=== PATIENT | male | born 1945 | race Caucasian/White ===

== ENCOUNTER 2018-08-09 18:12 | Outpatient (REF) | payer MEDICARE, SELFPAY ==
[2018-08-09 22:28] LABS: Abs Immature Grans 0.01 k/cumm (0.0-0.09); Absolute Basophil Count 0.01 k/cumm (0.0-0.2); Absolute Eosinophil Count 0.03 k/cumm (0.0-0.7); Absolute Lymphocyte Count 0.36 k/cumm (1.2-3.4); Absolute Monocyte Count 0.59 k/cumm (0.11-0.7); Absolute Neutrophil Count 9.76 k/cumm (1.2-6.7); Basophils % 0.1; Eosinophils % 0.3; HCT 43.2 % (40.0-50.0); HGB 14.6 g/dL (13.5-17.5); Immature Grans % 0.1; Lymphocytes % 3.3; Mean Corp. HGB Concentration 33.8 g/dL (32.0-36.0); Mean Corpuscular Hemoglobin 31.1 pg (27.0-33.0); Mean Corpuscular Volume 91.9 fL (80-95); Mean Platelet Volume 10.8 fL (8.0-11.0); Monocytes % 5.5; Neutrophils % 90.7; Platelet Count 150 x1000/uL (130-400); White Blood Cell Count 10.76 k/cumm (4.4-10.8)
[2018-08-09 22:29] LABS: Bilirubin Negative (Negative); Blood Moderate (Negative); Clarity Cloudy; Glucose Negative (Negative); Ketones Negative (Negative); Leukocyte Esterase Small (Negative); Nitrite Positive (Negative); Specific Gravity 1.025 (1.005-1.025); Urobilinogen 0.2 EU/dL (Up TO 0.2); pH 5.5 (5-8)
[2018-08-09 22:36] LABS: ALT 59 U/L (12-78); AST 42 U/L (15-37); Albumin 3.6 g/dL (3.4-5.0); Alkaline Phosphatase 110 U/L (46-116); Anion Gap 13.6 mmol/L (3-11); BUN 23 mg/dL (7-18); Bilirubin, Total 1.1 mg/dL (0.2-1.0); CO2 23.4 mmol/L (21.0-32.0); CREATININE 1.73 mg/dL (0.70-1.30); Calcium 8.9 mg/dL (8.5-10.1); Chloride 102 mmol/L (98-107); Glucose 98 mg/dL (70-100); Potassium 3.4 mmol/L (3.5-5.1); Sodium 139 mmol/L (136-145); Total Protein 7.1 g/dL (6.4-8.2)
[2018-08-09 23:08] LABS: C & S Indicated? C&S Done As Ordered
[2018-08-10 09:50] LABS: WBC >50 HPF (0-5)
[2018-08-10 09:51] LABS: Bacteria Many HPF (Negative); Epithelial Cells Few HPF (Negative); Other Cells Moderate Renal (Negative)
[2018-08-10 09:52] LABS: Crystals Many Amorphous HPF (Negative); Mucus Moderate (Negative)
== END 2018-08-09 18:32 ==
LOC: NCHCN 18:12
PROVIDERS: PCP Internal Medicine; Visit Provider Internal Medicine
DX: R50.9 Fever, unspecified (principal); N39.0 Urinary tract infection, site not specified
CPT/HCPCS: 80053; 87077; 81003; 81015; 85025; 87086; 87186

== ENCOUNTER 2019-01-23 21:59 | Emergency (ER) | payer MEDICARE, SELFPAY ==
[2019-01-23 22:18] VITALS: BP 137/91; PULSE 95; RESP 18; TEMP 36.6; O2SAT 100
--- NOTE | 2019-01-23 22:26 | NUR.NOTE ---
Nursing Note:MD Nicholson at bedside.
--- NOTE | 2019-01-23 22:35 | ED.GENADUL_ITS ---
Discharge Plan Disposition Patient Disposition: HOME Condition: Good Discharge Details Chief Complaint: Abd Prob Clinical Impression: Partial small bowel obstruction Primary Care Provider: Hugh Cortes ED Provider: Quentin Nicholson Home Meds and New Rx's Prescriptions: No Action multivitamin [Daily Vitamin] 1 EACH tablet 1 ea PO DAILY RF: 0 atorvastatin [Lipitor] 20 MG tablet 20 mg PO HS RF: 0 metoprolol succinate 50 MG tablet extended release 24 hr 50 mg PO BID Qty: 60 RF: 0 nitroglycerin [Nitrostat] 0.4 MG tablet, sublingual 1 tab Sublingual PRN PRNRF: 0 apixaban [Eliquis] 5 MG tablet 1 tab PO BID RF: 0 diltiazem HCl 180 MG capsule,extended release 24 hr 180 mg PO DAILY Qty: 20 RF: 0 Discharge Instructions Instructions: Bowel Obstruction (ED) Additional Instructions: At this time you have a very mild low-grade small bowel obstruction. These often resolve on their own. It requires stomach rest, and only eating liquid food for the next 24-48 hours. After 48 hours you can begin to gradually advance her diet with Jell-O, pudding, and 24 hours after that begin to eat mild solid meals. Please drink plenty of fluids. If you have no gas or bowel movement in the next 24 hours, please return immediately for reassessment. If you notice any worsening of your symptoms, or any new symptoms such as vomiting, diarrhea, worsening abdominal pain fever, chills, shortness of breath, chest pain, numbness, weakness, or fainting , please return immediately to the emergency department for reevaluation. Please follow up with your primary care provider as soon as possible for reassessment and reevaluation. As always, it was a pleasure participating in your medical care today. Referrals: Hugh Cortes MD [Primary Care Provider] - Medical Decision Making <Quentin Nicholson MD - Last Filed: 01/23/19 23:34> 73-year-old male presents from home complaining of hours of progressive abdominal pain that he states the time of arrival seems to be improving. He states it did begin after eating 6 different kinds of baked beans at a being supper. He has not had a fever or vomiting. Feels bloated and mildly distended. On exam he is well-appearing, afebrile, minimally tender in the midepigastrium. Reviewed previous records including colonoscopy 2017 with both polyps and diverticulosis. Differential diagnosis today would include diverticulitis, ileus, obstruction, colitis. IV placed, labs obtained, fluids initiated and patient referred for CT imaging. Diagnostic laboratory notable for white blood cell count of 11.6, hematocrit 51, platelets 218, slight neutrophil predominance. Chemistries notable for BUN of 24. As it is change of shift, patient be signed out to Dr. Mendez pending review of diagnostic images. Please see his note regarding final impression disposition <Sterling Mendez DO - Last Filed: 01/24/19 00:52> Medical Records Medical records narrative: Case was signed out to be my my colleague Dr. Quentin Nicholson pending CT scan. Laboratory work-up is relatively benign, minimal elevation in white count, no fever or significant tachycardia. Blood pressure stable. CT scan shows no evidence of diverticulitis per virtual radiology but does show evidence of mildly dilated loops of small bowel concerning for a low- grade small bowel obstruction. He did go and reassessed the patient independently. He just woke up from his nap. He states that he feels much better and would like to go home. Repeat abdominal exam demonstrates normal bowel sounds, no hypertympany, no abdominal distention or significant tenderness. He continues to have no vomiting. He recently had some flatus a few hours ago, last bowel movement was earlier today. Although he shows CT scan findings concerning for low-grade SBO, clinically he appears to be more carmelita cative of a very mild to minimal ileus. He has been tolerating p.o. well. No indication for NG tube at this time. I did discuss admission to the hospital, and at this time patient would like to go home. I did discuss the risks and benefits of this including and lifelong disability however I feel this extremely unlikely. I feel that he is safe and stable for discharge at this time. Do recommend oral fluids, no solid foods, and rest at home. I discussed the concerning red flags which to return including no flatus or bowel movements in the next 24 hours, worsening abdominal pain or distention. Patient understands. I have extensively reviewed the treatment plan and discharge instructions with the patient. I have addressed all patient concerns at this time. The patient was made aware of what symptoms to monitor for that would warrant a return to the emergency department. Discussed the plan with the patient, they demonstrate verbal understanding and agreement with our assessment and plan at this time. FINDINGS: Lungs: Bibasilar subsegmental dependent atelectasis. Liver: Normal. No mass. Gallbladder and bile ducts: Normal. No calcified stones. No ductal dilation. Pancreas: Normal. No ductal dilation. Spleen: Normal. No splenomegaly. Adrenals: Normal. No mass. Kidneys and ureters: Normal. No hydronephrosis. Stomach and bowel: Colonic diverticulosis. Periampullary duodenal diverticulum. Mildly dilated loops of small bowel concerning for mild/low-grade small bowel obstruction. Appendix: A normal appendix is identified. Intraperitoneal space: Unremarkable. No free air. No significant fluid collection. Vasculature: Atherosclerotic disease of the abdominal aorta without aneurysm. Lymph nodes: Unremarkable. No enlarged lymph nodes. Bladder: Unremarkable as visualized. Reproductive: Prostate is enlarged. Bones/joints: Unremarkable. No acute fracture. Soft tissues: Unremarkable. IMPRESSION: Mildly dilated loops of small bowel concerning for mild/low-grade small bowel obstruction. Thank you for allowing us to participate in the care of your patient. Dictated and Authenticated by: Alton Lunsford MD HPI <Quentin Nicholson MD - Last Filed: 01/23/19 23:34> General Mode of arrival: ambulatory . Date/Time Provider Initiated Documentation: 01/23/19 21:59 . Limitations to Documentation: no limitations . Information obtained by: patient . History of Present Illness 73 year old M presents to the emergency department with the chief complaint of Hours of abdominal pain, bloating and distention, described as moderate, Quality is described as constant, and is localized to the abdomen. Patient reports no radiation. Patient started experiencing this hour(s) and it has been constant. No relieving factors improve symptom(s), No exacerbating factors reported . Patient notes other (Bloating, belching, no significant change to stool. No bloody or dark stool.). Patient did receive the following treatments prior to arrival, none Related Data Home Medications Medication Instructions Recorded Confirmed atorvastatin [Lipitor] 20 mg PO HS 10/28/14 12/19/16 metoprolol succinate 50 mg PO BID #60 tabcr 10/31/14 12/19/16 multivitamin [Daily Vitamin] 1 ea PO DAILY 11/03/14 12/19/16 apixaban [Eliquis] 1 tab PO BID 09/07/15 12/19/16 nitroglycerin [Nitrostat] 1 tab SUBLINGUAL PRN PRN 09/07/15 12/19/16 diltiazem HCl 180 mg PO DAILY #20 capsule.er 12/19/16 Previous Rx's Medication Instructions Recorded metoprolol succinate 50 mg PO BID #60 tabcr 10/31/14 diltiazem HCl 180 mg PO DAILY #20 capsule.er 12/19/16 Allergies Allergy/AdvReac Type Severity Reaction Status Date / Time No Known Allergies Allergy Unverified 05/16/16 11:42 General Stated Complaint: Abd Prob NURIA: 3 Review of Systems <Quentin Nicholson MD - Last Filed: 01/23/19 23:34> Review of Systems Narrative: No fever or chills. No change to urine. No vomiting. 6 systems reviewed and otherwise negative. PFSH <Quentin Nicholson MD - Last Filed: 01/23/19 23:34> Surgical History Colonoscopy - IV Sedation (05/16/16) Coronary Stent Social History Smoking/Tobacco Use Status: Former Tobacco Use Drug use: Never Substance use type: does not use Do you feel safe in your relationship?: Yes Exam <Quentin Nicholson MD - Last Filed: 01/23/19 23:34> Narrative Exam Narrative: GEN: awake, alert, oriented 3. Pleasant, well groomed, interactive. HEAD: Normocephalic, atraumatic ENT: Mucous membranes moist, oropharynx unremarkable, External ear exam unremarkable EYES: PERRL, EOMI NECK: Full ROM, no RAFAEL, no menigismus CHEST/RESP: Nontender, clear to auscultation bilateral, no wheeze/rhonchi/rales CARDIOVASCULAR: RRR, no murmur, rub pooja. 2+ Rad pulse bilateral ABDOMEN: Soft, mid abdominal tenderness to deep palpation without significant rebound, no mass. +Bowel sounds EXT: Full ROM, no edema, no rash Neuro: Grossly normal neurologic exam, conversant, interactive. Psych: Speech fluent, thoughts congruent, affect normal Course <Quetnin Nicholson MD - Last Filed: 01/23/19 23:34> Vital Signs Vital signs: Vital Signs Temperature 36.6 C 01/23/19 22:18 Pulse 95 H 01/23/19 22:18 Respiratory Rate 18 01/23/19 22:18 Blood Pressure 137/91 H 01/23/19 22:18 Pulse Oximetry 100 01/23/19 22:18 Temperature 36.6 C 01/23/19 22:18 Temperature Source Oral 01/23/19 22:18 Pulse 95 H 01/23/19 22:18 Respiratory Rate 18 01/23/19 22:18 Respiratory Effort Non-Labored 01/23/19 22:22 Blood Pressure 137/91 H 01/23/19 22:18 Pulse Oximetry 100 01/23/19 22:18 Oxygen Delivery Method Room Air 01/23/19 22:18 Oxygen Flow Rate 0 01/23/19 22:18 Pain Level 7 01/23/19 22:18
[2019-01-23 23:13] LABS: Abs Immature Grans 0.02 k/cumm (0.0-0.09); Absolute Basophil Count 0.03 k/cumm (0.0-0.2); Absolute Lymphocyte Count 0.57 k/cumm (1.2-3.4); Basophils % 0.3; Eosinophils % 0.3; Immature Grans % 0.2; Lymphocytes % 4.9; Mean Corp. HGB Concentration 33.3 g/dL (32.0-36.0); Mean Corpuscular Volume 93.1 fL (80-95); Mean Platelet Volume 9.6 fL (8.0-11.0); Monocytes % 4.7; Neutrophils % 89.6; Platelet Count 218 x1000/uL (130-400); RBC 5.48 m/cumm (4.50-6.00); RBC Distribution Width 13.3 % (11.8-14.1)
[2019-01-23 23:15] LABS: Absolute Eosinophil Count 0.03 k/cumm (0.0-0.7); Absolute Monocyte Count 0.55 k/cumm (0.11-0.7); Absolute Neutrophil Count 10.39 k/cumm (1.2-6.7)
[2019-01-23 23:21] LABS: Lipase 124 U/L (73-393)
[2019-01-23 23:22] LABS: Prothrombin Time 9.9 sec (9.3-11.0)
[2019-01-23 23:24] LABS: ALT 31 U/L (16-63); AST 20 U/L (15-37); Albumin 4.3 g/dL (3.4-5.0); Alkaline Phosphatase 109 U/L (46-116); Anion Gap 8.1 mmol/L (3-11); BUN 24 mg/dL (7-18); Bilirubin, Total 0.6 mg/dL (0.2-1.0); CO2 29.9 mmol/L (21.0-32.0); CREATININE 1.25 mg/dL (0.70-1.30); Calcium 9.5 mg/dL (8.5-10.1); Chloride 106 mmol/L (98-107); Estimated GFR 56.31 (mL/min/1.73m2); Glucose 135 mg/dL (70-100); Potassium 4.5 mmol/L (3.5-5.1); Sodium 144 mmol/L (136-145); Total Protein 8.2 g/dL (6.4-8.2)
[2019-01-23] MEDS: Omnipaque 350 MG/ML 50 ML BTL PO (23:29)
[2019-01-23] MEDS: Omnipaque 350 MG/ML 100 ML BTL IJ (23:54)
[2019-01-23] MEDS: Breeza Beverage 473 ML BTL PO (23:55)
--- NOTE | 2019-01-23 23:55 | DI.CT_ITS ---
SYMPTOM/DIAGNOSIS: DC ABD PAIN, H/O TICS ABDOMEN AND PELVIC CT: The study was carried out according to the usual protocol with an intravenous administration of 100 cc's of Omnipaque 350. Small regions of subsegmental atelectasis are noted involving the lung bases. The liver is normal. The gallbladder is normal. There are no stones or ductal dilatation. The pancreas is normal. The spleen and adrenals are normal. No renal abnormality is seen. Colonic diverticulosis is demonstrated and there is a coco-ampullary duodenal diverticulum. There are mildly dilated loops of small bowel concerning for a mid to low small bowel obstruction. A normal appearing appendix is identified. There is no evidence of free air or free fluid in the intraperitoneal space. Atherosclerotic changes involving the abdominal aorta are demonstrated without evidence of an aneurysm. There is no evidence of lymphadenopathy. The bladder is unremarkable. Prostatic enlargement is demonstrated. No acute bony abnormality is seen. The soft tissues are unremarkable. IMPRESSION: Mildly dilated loops of small bowel are concerning for a possible mid to low small bowel obstruction.
--- NOTE | 2019-01-24 00:04 | NUR.NOTE ---
Nursing Note: report given to Linus Myers RN
[2019-01-24] MEDS: Normal Saline 1,000 ML 125 ML IV (00:22)
--- NOTE | 2019-01-24 00:36 | DI.VRAD_ITS ---
EXAM: CT Abdomen and Pelvis With Contrast EXAM DATE/TIME: 01/23/2019 10:35 PM CLINICAL HISTORY: 73 years old, male; Localized; Prior surgery; Surgery date: 1-6 months; Surgery type: Turp procedure in August; Patient HX: Mid abdominal pain TECHNIQUE: Imaging protocol: Computed tomography of the abdomen and pelvis with intravenous contrast. Radiation optimization: All CT scans at this facility use at least one of these dose optimization techniques: automated exposure control; mA and/or kV adjustment per patient size (includes targeted exams where dose is matched to clinical indication); or iterative reconstruction. Contrast material: OMNIPAQUE 350; Contrast volume: 100 ml; Contrast route: IV; COMPARISON: No relevant prior studies available. FINDINGS: Lungs: Bibasilar subsegmental dependent atelectasis. Liver: Normal. No mass. Gallbladder and bile ducts: Normal. No calcified stones. No ductal dilation. Pancreas: Normal. No ductal dilation. Spleen: Normal. No splenomegaly. Adrenals: Normal. No mass. Kidneys and ureters: Normal. No hydronephrosis. Stomach and bowel: Colonic diverticulosis. Periampullary duodenal diverticulum. Mildly dilated loops of small bowel concerning for mild/low-grade small bowel obstruction. Appendix: A normal appendix is identified. Intraperitoneal space: Unremarkable. No free air. No significant fluid collection. Vasculature: Atherosclerotic disease of the abdominal aorta without aneurysm. Lymph nodes: Unremarkable. No enlarged lymph nodes. Bladder: Unremarkable as visualized. Reproductive: Prostate is enlarged. Bones/joints: Unremarkable. No acute fracture. Soft tissues: Unremarkable. IMPRESSION: Mildly dilated loops of small bowel concerning for mild/low-grade small bowel obstruction. Dictated and Authenticated by: Alton Lunsford MD. Ordering:MOISES Saavedra MD
[2019-01-24 01:11] VITALS: BP 130/78; PULSE 84; RESP 18; O2SAT 100
== END 2019-01-24 01:05 | disposition home or self-care (01) ==
PROVIDERS: Emergency Provider Emergency Medicine; PCP Internal Medicine
DX: K56.600 Partial intestinal obstruction, unspecified as to cause (principal); R14.0 Abdominal distension (gaseous)
CPT/HCPCS: 36415; 80053; 83690; 96360; 99285; 74177; 85025; 85610; 99284; J3490; Q9967

== ENCOUNTER 2019-12-26 14:35 | Outpatient (REF) | payer MEDICARE, SELFPAY ==
[2019-12-26 21:18] LABS: Anion Gap 9.6 mmol/L (3-11); BUN 27 mg/dL (7-18); CO2 28.4 mmol/L (21.0-32.0); CREATININE 1.28 mg/dL (0.70-1.30); Calcium 9.4 mg/dL (8.5-10.1); Calculated LDL 73 mg/dL (<100); Chloride 105 mmol/L (98-107); Cholesterol 164 mg/dL (<200); Estimated GFR 54.64 (mL/min/1.73m2); Glucose 86 mg/dL (74-106); HDL Cholesterol 43 mg/dL (40-60); Potassium 4.4 mmol/L (3.5-5.1); Sodium 143 mmol/L (136-145); Triglyceride 243 mg/dL (<150)
[2019-12-29 22:21] LABS: SARS-CoV-2 RNA Undetected (Undetected)
== END 2019-12-26 14:55 ==
LOC: NCHCN 14:35
PROVIDERS: PCP Internal Medicine; Visit Provider Internal Medicine
DX: E78.5 Hyperlipidemia, unspecified (principal); I48.0 Paroxysmal atrial fibrillation; I25.10 Atherosclerotic heart disease of native coronary artery without angina pectoris; Z20.828 Contact with and (suspected) exposure to other viral communicable diseases
CPT/HCPCS: 80048; 80061; U0003

== ENCOUNTER 2020-04-20 06:13 | Day surgery (SDC) | payer MEDICARE, SELFPAY ==
[2020-04-20] MEDS: Tropicam./Phenyleph. (1/2.5%) 5 ML BTL OD ×3 (06:25→06:38)
[2020-04-20 06:28] VITALS: BP 129/79; PULSE 74; RESP 16; TEMP 36.3; O2SAT 94
[2020-04-20] MEDS: Tetracaine 0.5% 4 ML BTL OD (07:51)
[2020-04-20] MEDS: Balanced Salt Soln.-PLUS 500 ML BAG (07:54)
[2020-04-20] MEDS: Lidocaine 2% Jelly 6 ML SYR (07:57)
[2020-04-20] MEDS: Lidocaine 1% Pres-Free 5 ML VIAL (07:57)
[2020-04-20] MEDS: Moxifloxacin-PF 1 MG/ML VIAL (08:00)
[2020-04-20] MEDS: Povidone-Iodine Ophth 30 ML BTL (08:04)
--- NOTE | 2020-04-20 08:08 | W.PM.DSUDISC ---
Discharge Plan Disposition Patient Disposition: HOME Condition: Good Discharge Details Attending Provider: Marcos Leon Primary Care Provider: Hugh Cortes Home Meds and New Rx's Prescriptions: No Action multivitamin [Daily Vitamin] 1 EACH tablet 1 ea PO DAILY RF: 0 atorvastatin [Lipitor] 20 MG tablet 20 mg PO HS RF: 0 nitroglycerin [Nitrostat] 0.4 MG tablet, sublingual 1 tab Sublingual PRN PRNRF: 0 Eliquis 5 MG tablet 1 tab PO BID RF: 0 diltiazem HCl 180 MG capsule,extended release 24 hr 180 mg PO DAILY Qty: 20 RF: 0 metoprolol succinate 50 MG tablet extended release 24 hr 50 mg PO DAILY RF: 0 Discharge Instructions Stand Alone Forms: Post-op Topical Cataract, Anant Anderson (DSU) Discharge Orders Discharge Orders: Discharge Order (Routine); Ordered 04/20/20 Ordered By: Marcos Leon DS: Diagnosis Discharge Diagnosis (1) Posterior subcapsular age-related cataract, right eye: Status: Resolved (2) Nuclear sclerotic cataract of right eye: Status: Resolved (3) Cortical cataract of right eye: Status: Resolved
--- NOTE | 2020-04-20 08:09 | ROE_ITS ---
Date of service: 04/20/20 Time of Service: 08:09 Operative Note Operative Note DATE OF PROCEDURE: 04/20/20 PRE-OP DIAGNOSIS: Nuclear/cortical/posterior subcapsular cataract, right eye POST-OP DIAGNOSIS: same PROCEDURE: Cataract extraction using phacoemulsification with intraocular lens implant, right eye SURGEON: Marcos Leon ANESTHESIA: MAC and local (sub-tenon's anesthetic infiltration) ESTIMATED BLOOD LOSS: 0 PATHOLOGY: none sent COMPLICATIONS: None Patient was transported to: same day Patient's condition: stable Implants: [employer] / [employer] Tecnis ZCB00 intraocular lens Indications: Progressive decreased vision due to cataract, right eye Procedure Description: CATARACT SURGERY OPERATIVE REPORT PREOPERATIVE DIAGNOSIS: Nuclear/cortical/posterior cataract, right eye POSTOPERATIVE DIAGNOSIS: Same OPERATION: Cataract extraction using phacoemulsification with posterior chamber intraocular lens implant, right eye. IOL: IOL On Site Manager/Model: [employer] Vision / KARI Tecnis ZCB00 IOL Power: + 11.0 diopters IOL Serial Number: [id number] Optic Diameter: 6.0mm Haptic/Overall Diameter: 13.0mm PHACO INFO: Liang Plex Systemsurion Vision System with OZil and Active [employer]uidics Cumulative Dispersed Energy (CDE): 8.35 seconds SURGEON: Marcos Leon MD, ANTHONY ANESTHESIA: Monitored Anesthesia Care (MAC), with local sub-tenon's anesthetic infiltration COMPLICATIONS: None SPECIMENS: None INDICATIONS FOR PROCEDURE: The patient is a 74-year-old gentleman with history of high myopia who has since undergone cataract surgery in his left eye in 2016. He has developed now developed a significant nuclear/cortical/posterior subcapsular cataract in the right eye. The option of cataract surgery was offered to the patient and he felt he was symptomatic at that he wished to proceed. PROCEDURE: The correct surgical eye was identified and marked as the right eye and the pupil was dilated in the preoperative area using mydriatics and cycloplegics. The dilated pupil size was 8.0 mm. Oral sedation was administered in the form of an Imprimis MKO Melt (midazolam 3mg/ketamine 25mg/ondansetron 2mg). The patient was brought to the operating room where cardiopulmonary monitoring was instituted and surgical time-out was performed, confirming the correct operative eye and IOL power. Topical anesthesia was administered and ophthalmic povidone-iodine 5% was instilled into the conjunctival fornices. Lidocaine gel was applied to the cornea and the coco-ocular area was prepped with Betadine 10% solution and draped in the usual sterile fashion for intraocular surgery, including an aperture drape. A Tegaderm transparent film dressing was cut in half and used to cover the lashes and lid margins. Care was taken to sequester the lashes and lid margins under the Tegaderm dressing. A lid speculum was placed between the lids of the operative eye and the Lisset-Fortino operating microscope was maneuvered into position. Allen scissors were then used to make a conjunctival buttonhole approximately 6mm posterior to the limbus in the inferonasal quadrant. Blunt dissection was carried out to expose bare sclera, and a blunt-tipped sub-tenon?s anesthesia cannula was introduced and passed posteriorly along the globe where non- preserved plain lidocaine was injected into posterior sub-Tenon?s space. A sideport knife was used to make a paracentesis port inferiortemporally. Intraocular phenylephrine/lidocaine was injected into the anterior chamber. The anterior chamber was then filled with viscoelastic. A 2.4mm keratome knife was used to create a half-thickness groove at the limbus and then to construct a three-plane near-clear corneal tunnel extending 2.0mm into clear cornea in the superiortemporal position. . A flap was raised on the anterior capsule and capsulorhexis forceps were used to complete a continuous curvilinear capsulorhexis of 6.0 mm. Capsule was noted to be very thin with a very deep anterior chamber. Balanced salt solution was then used to perform cortical cleaving hydrodissection and nuclear hydrodelineation until the lens could be freely rotated within the capsular bag. The lens nucleus was then disassembled and removed within the capsular bag and iris plane using phacoemulsification. Residual cortical material was removed using the I/A handpiece. The posterior capsule was carefully polished to remove as much residual lens epithelial cells as safely possible. The capsular bag was then inflated and the anterior chamber deepened with viscoelastic. The lens implant described above was inserted into the capsular bag using the KARI [place] Injector. A Kuglen hook was used to dial the IOL into position. Residual viscoelastic was then removed first from posterior to the IOL, then from the anterior chamber using the I/A handpiece. The lens implant was noted to center nicely within the capsular bag. The incisions were stromally hydrated, and the anterior chamber was reformed using BSS. Then 0.5cc of moxifloxacin 1.0mg/ml were injected into the capsular bag and anterior chamber. The incisions were checked with a Weck spear and found to be secure. Several drops of ophthalmic povidone-iodine 5% were then applied to the eye followed by two d rops of Imprimis combination prednisolone/moxifloxacin/nepafenac solution. The drapes were removed and a clear plastic protective eye shield was placed over the eye. The patient was then returned to [facility] in stable condition.
[2020-04-20 08:40] VITALS: BP 109/56; PULSE 61; RESP 16; TEMP 36.8; O2SAT 97
== END 2020-04-20 08:42 | disposition home or self-care (01) ==
PROVIDERS: PCP Internal Medicine; Visit Provider Ophthalmology
PROC: (CPT 66984; principal; 2020-04-20 07:30)
DX: H25.041 Posterior subcapsular polar age-related cataract, right eye (principal); H25.11 Age-related nuclear cataract, right eye; H25.011 Cortical age-related cataract, right eye; H52.11 Myopia, right eye
CPT/HCPCS: 66984; V2632

== ENCOUNTER 2020-05-06 18:11 | Emergency (ER) | payer MEDICARE, SELFPAY ==
--- NOTE | 2020-05-06 18:00 | RT.EKG_ITS ---
APPROVED REPORT Exam: Resting ECG Patient Location: E HR:108 bpm ECG Measurements Heart Rate 108 AXIS MD 192 P 2 QRSd 110 QRS 10 QT 321 T -65 QTc 430 Conclusion Sinus tachycardia...rate 108 Inferior q waves
[2020-05-06 18:16] VITALS: BP 160/91; PULSE 108; RESP 24; TEMP 36.2; O2SAT 93
[2020-05-06 18:18] VITALS: BP 160/91; PULSE 106; PULSE 110; RESP 14; O2SAT 94
[2020-05-06 18:30] VITALS: BP 160/91; PULSE 110
[2020-05-06 18:30] LABS: Abs Immature Grans 0.02 10^3/uL (0.0-0.06); Absolute Basophil Count 0.05 10^3/uL (0.0-0.2); Absolute Eosinophil Count 0.12 10^3/uL (0.0-0.7); Absolute Lymphocyte Count 1.66 10^3/uL (1.2-3.4); Absolute Neutrophil Count 4.59 10^3/uL (1.2-6.7); Basophils % 0.7; Eosinophils % 1.7; HCT 50.7 % (40.0-50.0); HGB 16.6 g/dL (13.5-17.5); Immature Grans % 0.3; Lymphocytes % 23.9; MCH 31.1 pg (27.0-33.0); MCHC 32.7 % (32.0-36.0); MCV 94.9 fL (80-95); MPV 9.3 fL (8.0-11.0); Monocytes % 7.2; Neutrophils % 66.2; Nucleated RBC 0 %; Platelet Count 227 10^3/uL (130-400); RBC 5.34 10^6/uL (4.36-5.78); RDW 12.3 % (11.8-14.1); RDW-SD 43.2 fL; WBC 6.94 10^3/uL (4.4-10.8)
[2020-05-06] MEDS: Normal Saline 1,000 ML 1000 ML IV (18:30)
[2020-05-06] MEDS: Metoprolol 5 MG/5 ML VIAL IVP (18:30)
--- NOTE | 2020-05-06 18:33 | ED.GENADUL_ITS ---
Discharge Plan Disposition Patient Disposition: HOME Condition: Improving Discharge Details Clinical Impression: Dehydration Primary Care Provider: Hugh Cortes ED Provider: Quentin Nicholson Home Meds and New Rx's Prescriptions: Continued multivitamin [Daily Vitamin] 1 EACH tablet 1 ea PO DAILY RF: 0 atorvastatin [Lipitor] 20 MG tablet 20 mg PO HS RF: 0 nitroglycerin [Nitrostat] 0.4 MG tablet, sublingual 1 tab Sublingual PRN PRNRF: 0 Eliquis 5 MG tablet 1 tab PO BID RF: 0 diltiazem HCl 180 MG capsule,extended release 24 hr 180 mg PO DAILY Qty: 20 RF: 0 metoprolol succinate 50 MG tablet extended release 24 hr 50 mg PO DAILY RF: 0 Discharge Instructions Instructions: Dehydration (ED) Additional Instructions: Home to rest this evening. Resume normal routine and activities tomorrow. Continue regular medications. Small, frequent sips of fluids so that she maintain good hydration. Return to the ER for any acute concerns. Discharge Data Discharge Date/Time-TO BE ENTERED AT DEPARTURE: 05/06/20 19:35 Medical Decision Making 74-year-old male presents from home complaining of mild palpitations today. He states he slept poorly last night, absentmindedly forgot to take his morning medications and then took them at approximately 3:00. He felt the palpitations this afternoon and checked him on home pulse oximeter which noted heart rates in the 140s. No chest pain, no shortness of breath, no weakness or syncope. Patient drove himself to the ER. He arrives with a blood pressure 160/90, pulse 108, afebrile and oxygenating normally on room air. He has a history of paroxysmal atrial fibrillation for which he takes metoprolol, diltiazem, Eliquis. He also has a history of single-vessel coronary artery disease status post percutaneous stenting. Patient placed on director of cardiac rehabilitation, IV access established, fluids initiated. Given 5 mg of metoprolol IV, 1 L normal saline and referred for laboratory testing, EKG and chest x-ray. He is in a normal sinus rhythm. Chest x-ray: No acute pulmonary process Labs reveal probable mild dehydration with a hematocrit of 50, BUN 21, creatinine 1.3. Troponin is negative. TSH within normal limits. Patient improved. Consistent with lack of AV lisa blockade and dehydration. I discussed this with him. He is stable and improved, appropriate for discharge to home. Lab Data Lab results reviewed: Yes I reviewed the patient's lab results. Labs: Laboratory Results - last 24 hr 05/06/20 05/06/20 18:20 18:20 WBC 6.94 RBC 5.34 Hgb 16.6 Hct 50.7 H MCV 94.9 MCH 31.1 MCHC 32.7 RDW 12.3 Plt Count 227 MPV 9.3 Immature Gran % 0.3 Neutrophils % 66.2 Lymphocytes % 23.9 Monocytes % 7.2 Eosinophils % 1.7 Basophils % 0.7 Nucleated RBC % 0 Absolute Neutrophils 4.59 Absolute Lymphocytes 1.66 Absolute Monocytes 0.50 Absolute Eosinophils 0.12 Absolute Basophils 0.05 Sodium 140 Potassium 4.0 Chloride 103 Carbon Dioxide 27.2 Anion Gap 9.8 BUN 21 H Creatinine 1.35 H Estimated GFR/1.73 m2 51.38 Glucose 145 H Calcium 8.9 Magnesium 2.1 Total Bilirubin 0.4 AST 22 ALT 39 Alkaline Phosphatase 117 H Troponin I < 0.05 Total Protein 7.8 Albumin 4.0 TSH 1.74 HPI General Mode of arrival: ambulatory . Date/Time Provider Initiated Documentation: 05/06/20 18:12 . Limitations to Documentation: no limitations . Information obtained by: patient . History of Present Illness 74 year old M presents to the emergency department with the chief complaint of Palpitations today, described as moderate, Quality is described as dull, and is localized to the chest. Patient reports no radiation. Patient started experiencing this hour(s) and it has been constant. No relieving factors improve symptom(s), No exacerbating factors reported . Patient notes other ([place] very tired today); denies chest pain, fever/chills, headaches, loss of appetite, nausea/vomiting, shortness of breath, syncope and weakness. Patient did receive the following treatments prior to arrival, none Related Data Home Medications Medication Instructions Recorded Confirmed atorvastatin [Lipitor] 20 mg PO HS 10/28/14 05/06/20 multivitamin [Daily Vitamin] 1 ea PO DAILY 11/03/14 05/06/20 Eliquis 1 tab PO BID 09/07/15 04/20/20 nitroglycerin [Nitrostat] 1 tab SUBLINGUAL PRN PRN 09/07/15 05/06/20 diltiazem HCl 180 mg PO DAILY #20 capsule.er 12/19/16 05/06/20 metoprolol succinate 50 mg PO DAILY 04/17/20 05/06/20 Previous Rx's Medication Instructions Recorded diltiazem HCl 180 mg PO DAILY #20 capsule.er 12/19/16 Allergies Allergy/AdvReac Type Severity Reaction Status Date / Time No Known Allergies Allergy Unverified 05/06/20 18:22 General Stated Complaint: Palpitatns NURIA: 2 Review of Systems Narrative: Poor sleep last night, forgot to take morning medications. No chest pain, no shortness of breath, no syncope. 8 systems reviewed and otherwise negative [facility] Medical History CAD (coronary artery disease) Hx of adenomatous colonic polyps Hx of sciatica Hx of small bowel obstruction Hx of urinary tract obstruction Hyperlipemia Paroxysmal atrial fibrillation F/U pcp Dr. Sebastian george, pt. states he has been on medications with no issues. Surgical History (Updated 04/20/20 @ 08:08 by Marcos Leon MD) Colonoscopy - IV Sedation (05/16/16) Coronary Stent 1x 03/14/2000 Hx of transurethral prostatectomy Social History Smoking/Tobacco Use Status: Former Tobacco Use Quit Date: 03/14/00 Smoking risk assessment performed?: Yes Alcohol Intake: current Alcohol Intake frequency: a few times a month Alcohol type: beer and wine Drug use: Never Substance use type: does not use Do you feel safe at home: Yes Do you feel safe in your relationship?: Yes Exam Narrative Exam Narrative: GEN: awake, alert, oriented 3. Pleasant, well groomed, interactive. HEAD: Normocephalic, atraumatic EYES: PERRL, EOMI NECK: Full ROM, no RAFAEL, no menigismus CHEST/RESP: Nontender, clear to auscultation bilateral, no wheeze/rhonchi/rales CARDIOVASCULAR: RRR, nontachycardic at the time of my exam, no murmur, rub pooja. 2+ Rad pulse bilateral ABDOMEN: Soft, nontender, no mass. +Bowel sounds EXT: Full ROM, no edema, no rash Neuro: Grossly normal neurologic exam, conversant, interactive. Psych: Speech fluent, thoughts congruent, affect normal Course Vital Signs Vital signs: Vital Signs Temperature 36.2 C L 05/06/20 18:16 Pulse 108 H 05/06/20 18:16 Respiratory Rate 24 05/06/20 18:16 Blood Pressure 160/91 H 05/06/20 18:16 Pulse Oximetry 93 05/06/20 18:16 Temperature 36.2 C L 05/06/20 18:16 Temperature Source Skin 05/06/20 18:16 Pulse 108 H 05/06/20 18:16 Respiratory Rate 24 05/06/20 18:16 Respiratory Effort Non-Labored 05/06/20 18:16 Blood Pressure 160/91 H 05/06/20 18:16 Blood Pressure Position Supine 05/06/20 18:16 Pulse Oximetry 93 05/06/20 18:16 Pain Level 0 05/06/20 18:16 Lab/Test Results Lab/Test Results: Laboratory Tests Range/Units 05/06/20 18:20 WBC (4.4-10.8) 10^3/uL 6.94 RBC (4.36-5.78) 10^6/uL 5.34 Hgb (13.5-17.5) g/dL 16.6 Hct (40.0-50.0) % 50.7 H MCV (80-95) fL 94.9 MCH (27.0-33.0) pg 31.1 MCHC (32.0-36.0) % 32.7 RDW (11.8-14.1) % 12.3 Plt Count (130-400) 10^3/uL 227 MPV (8.0-11.0) fL 9.3 Immature Gran % 0.3 Neutrophils % 66.2 Lymphocytes % 23.9 Monocytes % 7.2 Eosinophils % 1.7 Basophils % 0.7 Nucleated RBC % % 0 Absolute Neutrophils (1.2-6.7) 10^3/uL 4.59 Absolute Lymphocytes (1.2-3.4) 10^3/uL 1.66 Absolute Monocytes (0.1-0.8) 10^3/uL 0.50 Absolute Eosinophils (0.0-0.7) 10^3/uL 0.12 Absolute Basophils (0.0-0.2) 10^3/uL 0.05
[2020-05-06 18:34] VITALS: BP 144/88; PULSE 82; RESP 18; O2SAT 93
[2020-05-06] MEDS: Normal Saline Flush 10 ML SYR IVP (18:37)
[2020-05-06 18:45] VITALS: BP 140/85; PULSE 78; PULSE 79; RESP 18; O2SAT 92
[2020-05-06 18:50] LABS: ALT 39 U/L (16-63); AST 22 U/L (15-37); Alkaline Phosphatase 117 U/L (46-116); Anion Gap 9.8 mmol/L (3-11); BUN 21 mg/dL (7-18); Bilirubin, Total 0.4 mg/dL (0.2-1.0); CO2 27.2 mmol/L (21.0-32.0); CREATININE 1.35 mg/dL (0.70-1.30); Calcium 8.9 mg/dL (8.5-10.1); Chloride 103 mmol/L (98-107); Estimated GFR 51.38 (mL/min/1.73m2); Glucose 145 mg/dL (74-106); Magnesium 2.1 mg/dL (1.8-2.4); Sodium 140 mmol/L (136-145); TSH 1.74 uIU/mL (0.36-3.74); Total Protein 7.8 g/dL (6.4-8.2)
[2020-05-06 18:51] LABS: Troponin I < 0.05 ng/mL (<0.06)
--- NOTE | 2020-05-06 19:10 | DI.RAD_ITS ---
EXAM: XR CHEST 2V PA LATERAL CLINICAL HISTORY: palpitations. TECHNIQUE: 2D digital imaging was performed. COMPARISON: CR CHEST 2 VIEWS PA,LAT from 10/29/2014 CR CHEST 2 VIEWS PA,LAT from 07/22/2017 also chest x-ray 07/22/2017 FINDINGS: Heart size is upper normal. The mediastinum is not widened. There is platelike atelectasis there is scarring in the right lung base which has slightly increased from previous studies. There is platelike atelectasis in the left lung base which was not present in 2014 and is slightly increased from July 2017. There are no pleural effusions.. No pulmonary jun a. No pneumothorax. IMPRESSION: Increasing bibasilar findings as described above. No pleural effusions. No pulmonary edema. Recomm end repeat chest x-ray in 2 weeks. DATA REPOSITORY: RADIATION DOSE DELIVERED:
--- NOTE | 2020-05-06 19:20 | DI.VRAD_ITS ---
PROCEDURE INFORMATION: Exam: XR Chest, 2 Views Exam date and time: 05/06/2020 7:09 PM Age: 74 years old Clinical indication: Other: Palpitations TECHNIQUE: Imaging protocol: XR of the chest Views: 2 views. COMPARISON: CR CHEST 2 VIEWS PA,LAT 07/22/2017 8:53 AM FINDINGS: Lungs: There are linear opacities bilateral lower lungs might reflect atelectasis. Pleural space: Unremarkable. No pleural effusion. No pneumothorax. Heart/Mediastinum: Unremarkable. No cardiomegaly. Bones/joints: There are mild degenerative changes in the thoracic spine. Is no acute fracture. IMPRESSION: No acute pulmonary process. Dictated and Authenticated by: Pastor Cancino MD. Ordering:MOISES Saavedra MD
[2020-05-06 19:34] VITALS: BP 140/85; PULSE 78; RESP 18; O2SAT 92
== END 2020-05-06 19:35 | disposition home or self-care (01) ==
PROVIDERS: Emergency Provider Emergency Medicine; PCP Internal Medicine
DX: E86.0 Dehydration (principal); I48.0 Paroxysmal atrial fibrillation; Z79.01 Long term (current) use of anticoagulants; I25.10 Atherosclerotic heart disease of native coronary artery without angina pectoris; Z95.5 Presence of coronary angioplasty implant and graft
CPT/HCPCS: 36415; 80053; 93005; 96361; 96374; 99285; 71046; 83735; 84443; 84484; 85025; 93010; 99284; J3490

== ENCOUNTER → 2020-12-14 08:22 | Outpatient (BNVA) | payer MEDICARE, SELFPAY | PROVIDERS: PCP Internal Medicine; Referring Provider Internal Medicine; Visit Provider Physical Therapy Assistant | DX: Z12.11 Encounter for screening for malignant neoplasm of colon (principal); Z86.010 Personal history of colon polyps ==

== ENCOUNTER 2020-12-31 07:03 | Day surgery (SDC) | payer MEDICARE, SELFPAY ==
--- NOTE | 2020-12-28 14:10 | W.ANESPRE ---
General Info Date of Service Date Performed: 12/31/20 Height: 6 ft 4 in Weight: 107.048 kg Body Mass Index (BMI): 28.7 Surgical Procedure: Operation Date: 12/31/20 08:20 Proposed Procedures Side Surgeon p Colonoscopy Doris Mathew MD Meds Allergies and Home Medications Allergies Allergy/AdvReac Type Severity Reaction Status Date / Time No Known Allergies Allergy Unverified 12/31/20 07:21 Home Medication Medication Instructions Recorded atorvastatin [Lipitor] 20 mg PO HS 10/28/14 multivitamin [Daily Vitamin] 1 ea PO DAILY 11/03/14 Eliquis 1 tab PO BID 09/07/15 nitroglycerin [Nitrostat] 1 tab SUBLINGUAL PRN PRN 09/07/15 diltiazem HCl 180 mg PO DAILY #20 capsule.er 12/19/16 metoprolol succinate 50 mg PO DAILY 04/17/20 bisacodyl 5 mg tablet,delayed 5 mg PO ONCE #4 tab 12/14/20 release polyethylene glycol 3350 17 238 g PO ONCE #238 g 12/14/20 gram/dose oral powder PFSH Active Problems Active Problems: Problem Status Onset Code Screening for colon cancer Z12.11 Chronic kidney disease N18.9 Posterior subcapsular age-related cataract, right eye H25.041 Nuclear sclerotic cataract of right eye H25.11 Cortical cataract of right eye H26.9 CAD (coronary artery disease) I25.10 Hyperlipidemia E78.5 Atrial fibrillation 10/28/14 I48.91 Cough 10/28/14 R05 Medical History Medical History (Updated 12/31/20 @ 07:24 by Peri Gonzalez) CAD (coronary artery disease) Hx of adenomatous colonic polyps Hx of sciatica pt. doesnt remember this Hx of small bowel obstruction Hx of urinary tract obstruction Hyperlipemia Paroxysmal atrial fibrillation F/U pcp Dr. Cortes regularly, pt. states he has been on medications with no issues. Surgical History Surgical History Colonoscopy - IV Sedation (05/16/16) Coronary Stent 1x 03/14/2000 Hx of transurethral prostatectomy Tobacco Smoking/Tobacco Use Status: Former Tobacco Use Alcohol Alcohol Intake: current Alcohol intake frequency: a few times a month Alcohol type: beer and wine Substance Use Substance use: Never Substance use type: does not use Vital Signs and Lab Results Lab Results Blood Type / Crossmatch: No Data to Display Complete Blood Count: No Data to Display Complete Metabolic Panel: No Data to Display Liver Function Panel: No Data to Display Coagulation Panel: No Data to Display Cardiac Panel: No Data to Display Arterial Blood Gas: No Data to Display Venous Blood Gas: No Data to Display Pancreas Panel: No Data to Display Thyroid Panel: No Data to Display Infectious Disease: No Data to Display Blood Cultures: No Data to Display Toxicology Panel: No Data to Display Imaging and Studies Imaging and Studies EKG Summary: 05/06/20inus tachycardia...rate 108 Inferior q waves I have reviewed and I agree with the emergency room physician???s ECG interpretation. Stress Test Summary: 11/08/14 Impressions: - No chest pain with exercise. - Functional capacity was decreased. - Blood pressure response was hypertensive with stress. - No significant arrhythmias - Abnormal study after maximal exercise. Summary: 1. Myocardial perfusion imaging: There is a small sized, moderately intense, fixed defect involving the apical inferior and mid inferior wall(s). This suggests small myocardial infarction in the distribution of the right coronary artery. 2. The calculated left ventricular ejection fraction after stress: 50%. LV global systolic function is low normal. There is mild hypokinesis involving the inferior wall(s) of the left ventricle. 3. Stress ECG conclusions: The stress ECG is negative. Abbasi treadmill score: 6. This score predicts a low risk of cardiac events. 4. Stress: The heart rate response to stress is normal. Echocardiogram Summary: 10/29/14 STUDY CONCLUSIONS* Summary: 1. Left ventricle: Systolic function was mildly reduced. The estimated ejection fraction was 45-50%. Severe hypokinesis of the apical myocardium. 2. Mitral valve: Mild regurgitation. 3. Left atrium: The atrium was mildly dilated. 4. Right atrium: The atrium was mildly dilated. 5. Pulmonary arteries: Pulmonary systolic pressure was >= 10mm Hg. 6. Inferior vena cava: Poorly visualized. Other Study Summary:: 01/24/17 The patient was monitored for 13 days and 21 hours from until January 09, 2017. The predominant underlying rhythm was atrial fibrillation. Overall burden 54%. Average heart rate 91 beats per minute, range 52-168 beats per minute. Longest episode 7 days and 11 hours. Average heart rate in sinus rhythm 61 beats per minute, range 41-98 beats per minute. There was rare ectopy. There was no ventricular tachycardia. There were no pauses greater than 3 seconds. There was no high degree AV block. There were no symptoms reported. INTERPRETATION: Paroxysmal atrial fibrillation with controlled ventricular response. Anesthesia Assessment and Plan Anesthesia History Personal History: No History of Anesthesia Complications Family History: No Family History of Anesthesia Complications Exercise Tolerance Exercise Tolerance: Metabolic Equivalents>4 Pertinent Negatives Pertinent Negatives: No Symptoms of GERD, No Major Cardiovascular Symptoms or Complaints, No Major Pulmonary Symptoms or Complaints (Hx of [place] 1999, s/p stent RCA, no chest pain since) and No History of CVA/TIA Cardiac & Pulmonary Exam Cardiac Exam: Normal S1/S2 Heart Sounds Pulmonary Exam: Clear Bilateral Breath Sounds Airway Exam Known Difficult Airway: No Mallampati Class: 2 Mouth Opening: Normal (> 3cm) Thyromental Distance: Greater than 3 cm Neck Range of Motion: Full ROM Neck Circumference: Normal Teeth Condition: Normal Dentition and Removable Dentures/Plates Upper (Partial) ASA Classification ASA Score: ASA 2 Emergency Case?: No NPO Status NPO Status: NPO Clears >2 hours, Solids >8 hours Anesthesia Plan Resuscitation Status: Full Code Anesthesia Technique: General Anesthesia Airway Planned: Natural Airway Monitors Used: Standard Monitors
--- NOTE | 2020-12-31 06:28 | COLE_ITS ---
Date of service: 12/31/20 Time of Service: 08:17 Colonoscopy Report Date of procedure: 12/31/20 Pre-op diagnosis general: Hx of polyps Post-op diagnosis procedure note: same (diverticulosis and polyps) Procedure: Colonoscopy with polypectomy Surgeon: Doris Mathew Anesthesia Type: General:No Airway (ASA 2/ Gerardo Gordon CRNA) Estimated blood loss (mL): 5 Pathology: other (16 polyps) Complications: None Disposition: same day Indications: The patient is here for Colonoscopy pre-op. His last screening was in 2017 and was remarkable for sessile serrated polyp. He has no family history of colon cancer. He has not had any bowel habit changes. -Discussed colonoscopy bowel prep as well as the procedure. Discussed possible complications of the procedure to include bleeding, pain, perforation, missed small lesion/polyp, sore throat, aspiration and adverse reaction to the medications. Questions were answered to patient?s satisfaction. No guarantees were implied or given. Prep: Miralax/Dulcolax Procedure Start Time: :17 Procedure End Time: :57 Retraction Time: 29 minutes Findings: 16 polyps. 2 sessile polyps in the cecum which were about 1 cm in size Diverticulosis Procedure Description: After informed consent was obtained the patient was taken to the procedure room and placed in a left decubitous position. Monitors were applied and a time out was done. The patients name, date of , procedure, allergies to medications and metal in their body was reviewed. The patient was then sedated. Once sedated and comfortable a rectal exam was done. External exam was normal. Internal exam revealed a normal sphincter tone and no palpable masses. The prostate felt smooth and slightly enlarged. The scope was then introduced and retro-flexed. No internal hemorrhoids, polyps or masses were identified on retro-flexion. The scope was then advanced to the cecum without difficulty. The ileocecal vlave and appendiceal orifice were identified. The prep was marginal on the right. The scope was advanced into th e terminal ileum. There was a polyp which was removed with cold forceps. The scope was then slowly retracted over 29 minutes back into the rectum. Polyps were removed with a hot snare in the cecum x2 and with cold forceps in the terminal ileum x1, ascending colon x1, sigmoid colon x4 and rectum x8. There was moderate hamm- diverticulosis noted. The scope was removed and the patient was woken up and taken back to Same day surgery in stable condition. The patient tolerated the procedure well and there were no immediate complications. Follow up: The patient should follow up in 3 years unless they develop changes in bowel habits or other new gastrointestinal complaints.
--- NOTE | 2020-12-31 06:29 | W.PM.DSUDISC ---
Discharge Plan Disposition Patient Disposition: HOME Condition: Good Discharge Details Reason For Visit: Colonoscopy Attending Provider: Doris Mathew Primary Care Provider: Hugh Cortes Home Meds and New Rx's Prescriptions: Continued multivitamin [Daily Vitamin] 1 EACH tablet 1 ea PO DAILY RF: 0 atorvastatin [Lipitor] 20 MG tablet 20 mg PO HS RF: 0 nitroglycerin [Nitrostat] 0.4 MG tablet, sublingual 1 tab Sublingual PRN PRNRF: 0 Eliquis 5 MG tablet 1 tab PO BID RF: 0 diltiazem HCl 180 MG capsule,extended release 24 hr 180 mg PO DAILY Qty: 20 RF: 0 metoprolol succinate 50 MG tablet extended release 24 hr 50 mg PO DAILY RF: 0 Discontinued polyethylene glycol 3350 17 gram/dose powder 238 g PO ONCE Qty: 238 RF: 0 bisacodyl [Dulcolax (bisacodyl)] 5 mg tablet,delayed release (DR/EC) 5 mg PO ONCE Qty: 4 RF: 0 Discharge Instructions Instructions: Diverticulosis (DC), Colorectal Polyps (DC) Additional Instructions: Findings: 16 polyps diverticulosis Follow up: 3 years Please call if you develop: fevers >101.5 Nausea or Vomiting Abdominal pain that is not transient Rectal bleeding that is more then a tbsp A hard abdomen and inability to pass gas DAY SURGERY UNIT POST ENDOSCOPY INSTRUCTIONS Instructions for everyone who is given Anesthesia: For your safety, please do the following for the next 24 Hours: a. Do not drive or operate dangerous equipment b. Do not drink alcohol beverages or use any recreational drugs for the first 24 hours or while taking pain medications. The medications in your body may have a reaction that can be dangerous. c. Do not make any important decisions or sign any important papers 1. Generally there are no restrictions on your activity after a day or so has gone by, but you may feel a bit fatigued for a few days. 2. After you arrive home you may have a light meal and return to a normal diet as you can tolerate it without feeling sick to your stomach. 3. After surgery, you may feel pain or discomfort. This should be only transient, but if it persists please contact your doctor. 4. If there are any questions regarding the findings of your procedure, please feel free to contact your doctor. 6. If you are unable to contact your doctor with a problem, contact the hospital at [phone]. 6. Continue all your regular medications unless directed otherwise. I understand the above instructions and have no questions. Signature of Patient or Responsible Adult Escort Date/Time Name of Responsible Adult Escort Signature of Nurse Date/Time Activity:: Activity as Tolerated Diet:: high fiber Discharge Orders Discharge Orders: Discharge Order (Routine); Ordered 12/31/20 Ordered By: Doris Mathew
[2020-12-31 07:24] VITALS: BP 117/87; PULSE 97; RESP 18; TEMP 36.4; O2SAT 94
[2020-12-31] MEDS: Lactated Ringers 1,000 ML 80 ML IV (07:35)
[2020-12-31 07:58] VITALS: BMI 28.7
--- NOTE | 2020-12-31 08:20 | BOWEL_PTH ---
PATIENT: Ric Loyola LOC: [facility] U#:[id number] AGE/SX: 75/M ROOM: RE12/31/[address]: Doris Mathew MD : 1945 BED: DIS: 12/31/2020 SPEC #: [id number] RECD: 12/31/20 12:37 STATUS: SANDRA REQ #: [id number] RHONDA: 12/31/20 08:[address]: Doris Mathew DEPT: Surgical Specimen RECD BY: Imelda Quintana ENTERED: 12/31/20 12:39 SP TYPE: Bowel OTHR DR: Hugh Cortes Tissues: 1 - BIOPSY BOWEL 2 - BIOPSY BOWEL 3 - BIOPSY BOWEL 4 - BIOPSY BOWEL 5 - BIOPSY BOWEL Procedures: GROSS AND MICRO LEVEL 4 Comments: [id number]
[2020-12-31 09:00] VITALS: BP 115/77; PULSE 82; RESP 18; TEMP 36; O2SAT 93
--- NOTE | 2020-12-31 09:03 | W.ANESPOSTOP ---
Postoperative Evaluation Date, Time and Location Date Performed: 12/31/20 Time Performed: 09:04 Patient Location: Day Surgery Unit Vital Signs Most Recent Imported Vital Signs: Most Recent Vital Signs Temp Pulse Resp BP Pulse Ox 36.4 C L 97 H 18 117/87 94 12/31/20 07:24 12/31/20 07:24 12/31/20 07:24 12/31/20 07:24 12/31/20 07:24 Most Recent Manually Entered Vital Signs: Adult Blood Pressure: 115/77 Heart Rate: 79 Respirations: 12 Oxygen Saturation (%): 94 Temperature (C): 36 C Pain Score (0-10 Scale): 0 Pain Score Most Recent Pain Score: Most Recent Pain Score Pain Level 0 12/31/20 07:24 Assessment Mental Status: Awake (Alert & Oriented to Patient Baseline) Airway and Respiratory Function: Patent airway with normal (patient baseline) respiratory exam Cardiovascular Function: Hemodynamically Stable Hydration Status: Adequately Hydrated Nausea & Vomiting: No Nausea or Vomiting Pain: Pt. Denies Any Pain Peripheral Nerve Block: Patient did not receive a nerve block
[2020-12-31 09:05] VITALS: BP 115/77; PULSE 79; RESP 12; TEMPC 36; O2SAT 94
[2020-12-31 09:24] VITALS: BP 142/82; PULSE 67; RESP 18; TEMP 36; O2SAT 96
== END 2020-12-31 09:57 | disposition home or self-care (01) ==
LOC: SUR 07:04
PROVIDERS: PCP Internal Medicine; Visit Provider Surgery
PROC: 0DJD8ZZ Inspection of Lower Intestinal Tract, Via Natural or Artificial Opening Endoscopic (ICD-10-PCS; CPT 45378; principal; 2020-12-31 08:15)
DX: Z12.11 Encounter for screening for malignant neoplasm of colon (principal); D12.0 Benign neoplasm of cecum; D12.2 Benign neoplasm of ascending colon; K62.1 Rectal polyp; Z86.010 Personal history of colon polyps; I48.0 Paroxysmal atrial fibrillation; I25.10 Atherosclerotic heart disease of native coronary artery without angina pectoris; K57.30 Diverticulosis of large intestine without perforation or abscess without bleeding
CPT/HCPCS: 45385; 45380; 88305; J2001

== ENCOUNTER 2022-07-09 04:32 | Emergency (ER) | payer MEDICARE, SELFPAY ==
--- NOTE | 2022-07-09 04:30 | DI.CT_ITS ---
Exam(s) CT ABDOMEN PELVIS WO EXAM: CT ABDOMEN PELVIS WO CLINICAL HISTORY: diarrhea, now did have 1 bloody stool, bloating. TECHNIQUE: Imaging Protocol: Axial computed tomography images with coronal and sagittal reformatted images were created and reviewed. COMPARISON: CT CT ABDOMEN PELVIS W from 01/23/2019 FINDINGS: ABDOMEN: Lung Bases: Coronary artery calcification is present. Chronic findings seen in the lung bases, right greater than left. Liver: Normal density. No measurable mass. Gallbladder and biliary tract: No radiodense calculus or biliary ductal dilation. Pancreas: Normal density, no abnormal calcifications or inflammatory process. Spleen: Normal. Kidneys: Normal size, contour and axis.There is a tiny nonobstructing right renal calculus. No hydro nephrosis. No masses seen. Adrenal glands: No mass is seen. Lymph nodes: Within normal limits. Abdominal Aorta: Abdominal portion non-dilated. Atherosclerosis is present. PELVIS: Bladder:Symmetric distention, no gross wall thickening. Bowel: There is diverticulosis in the colon but no evidence of acute diverticulitis. There is a smal l diverticulum associated with the 2nd portion of the duodenum. There is no evidence of bowel obstru ction or inflammation. There is no evidence of appendicitis. Peritoneal cavity: No ascites, collection or mesenteric inflammatory response. No free air. Reproductive organs: There is enlarged prostate gland. Bones: Within normal limits for the patient's age. Soft Tissues: Within normal limits. IMPRESSION: No acute abdominal or pelvic process. RADIATION DOSE DELIVERED: Total DLP DATA REPOSITORY: All CT scans at this facility are submitted to the National Radiology Data Registry (NRDR) Dose Index Registry (DIR) with the [employer] (ACR). RADIATION OPTIMIZATION: All CT scans at this facility use at least one of these dose optimization te chniques: automated exposure control; mA and/or kV adjustment per patient size (includes targeted exa ms where dose is matched to clinical indication); or iterative reconstruction.
[2022-07-09 04:35] VITALS: BP 145/79; PULSE 89; RESP 21; TEMP 36.7; O2SAT 97
--- NOTE | 2022-07-09 04:46 | ED.GENADUL_ITS ---
Discharge Plan Disposition Patient Disposition: Home Condition: Good Discharge Details Clinical Impression: Decreased frequency of bowel movements Primary Care Provider: Hugh Cortes ED Provider: Sterling Mendez Home Meds and New Rx's Prescriptions: Continued multivitamin [Daily Vitamin] 1 EACH tablet 1 ea PO DAILY atorvastatin [Lipitor] 20 MG tablet 20 mg PO HS Eliquis 5 MG tablet 1 tab PO BID diltiazem HCl 180 MG capsule,extended release 24 hr 180 mg PO DAILY Qty: 20 0RF metoprolol succinate 50 MG tablet extended release 24 hr 50 mg PO DAILY Discharge Instructions Additional Instructions: At this time your work-up has returned normal, your blood work, your hemoglobin levels, and your CAT scan shows no significant abnormality. Please continue with a regular diet. Avoid significant greasy or spicy foods. If you notice any worsening of your symptoms, or any new symptoms such as vomiting, diarrhea, fever, chills, shortness of breath, chest pain, numbness, weakness, or fainting , please return immediately to the emergency department for reevaluation. Please follow up with your primary care provider as soon as possible for reassessment and reevaluation. As always, it was a pleasure participating in your medical care today. Referrals: Hugh Cortes MD [Primary Care Provider] - Medical Decision Making This is a pleasant 77-year-old male with a past medical history of high blood pressure, high cholesterol, atrial fibrillation on Eliquis, who presents today for evaluation of abdominal changes. Patient states that 3 days ago he had a few episodes of diarrhea, which subsequently resolved, since then he has not had any bowel movements for the last 2-1/2 to 3 days. He did have a small sliver of stool which she states is very dark and was concerned for a bloody component. He denies any abdominal pain or bloating. He denies any other changes. She denies any vomiting. Patient did recently have a colonoscopy at [facility] 4 months ago which was unremarkable. No history of colon cancer.. Physical exam demonstrates a very well-appearing male, no abdominal pain or distention. No abdominal tenderness whatsoever. Symptoms are likely consistent with delayed bowel movements secondary to evacuation of the bowels recently, after the diarrhea. Otherwise patient looks well. I did discuss outpatient follow-up for labs and imaging versus current evaluation now as he does demonstrate no signs of medical instability or acute surgical abnormalities. Patient elected to have work-up performed now. We will evaluate with a CAT scan basic labs to make sure hemoglobin is stable. Will monitor closely and reassess. 5:45 AM Laboratory work-up has returned, notably unremarkable, hemoglobin stable. CT scan was performed and demonstrates no acute process. Patient feels very well, stable for discharge. Discussed red flags for which to return. Symptoms inconsistent with significant GI bleed, or acute surgical pathology otherwise. Discussed red flags for which to return. I have extensively reviewed the treatment plan and discharge instructions with the patient. I have addressed all patient concerns at this time. The patient was made aware of what symptoms to monitor for that would warrant a return to the emergency department. Discussed the plan with the patient, they demonstrate verbal understanding and agreement with our assessment and plan at this time. The documentation in this chart was dictated using [employer] dictation software. Please excuse any dictation errors. FINDINGS: Limitations: Mild motion artifact. No contrast was administered, limiting evaluation for some pathologies. Lungs: Hyperinflated lungs. Reticulonodular densities at the lung bases bilaterally suggesting small airways disease. Please correlate clinically. Coronary arteries: Coronary artery calcifications. Liver: No focal hepatic lesion identified, within the limitations of a noncontrast examination. Gallbladder and bile ducts: No radiodense gallbladder calculi seen. Pancreas: No CT evidence for acute pancreatitis. Spleen: No splenomegaly. Adrenal glands: No mass. Kidneys and ureters: Punctate nonobstructing right renal calculi. No hydronephrosis. Stomach and bowel: Duodenal diverticulum. No intestinal obstruction is evident. Colonic diverticula are identified but there is no CT evidence for diverticulitis. Appendix: No evidence of appendicitis. Intraperitoneal space: No free air. Vasculature: Arterial calcifications. Lymph nodes: No acute findings. Urinary bladder: No acute findings. Reproductive: Enlarged prostate. Bones/joints: No pertinent acute abnormality seen. Soft tissues: Small fat containing inguinal hernias. IMPRESSION: 1. No acute findings to explain reported symptoms, within the limitations of a noncontrast examination. 2. Nonacute findings as outlined above. Thank you for allowing us to participate in the care of your patient. Dictated and Authenticated by: Joana Strauss MD 07/09/2022 5:29 AM Eastern Time ([place] & [place]) HPI General Date/Time Provider Initiated Documentation: 07/09/22 04:34 . HPI Narrative: This is a pleasant 77-year-old male with a past medical history of high blood pressure, high cholesterol, atrial fibrillation on Eliquis, who presents today for evaluation of abdominal changes. Patient states that 3 days ago he had a few episodes of diarrhea, which subsequently resolved, since then he has not had any bowel movements for the last 2-1/2 to 3 days. He did have a small sliver of stool which she states is very dark and was concerned for a bloody component. He denies any abdominal pain or bloating. He denies any o ther changes. She denies any vomiting. Patient did recently have a colonoscopy at [facility] 4 months ago which was unremarkable. No history of colon cancer. Related Data Home Medications Medication Instructions Recorded Confirmed atorvastatin 20 mg tablet (Lipitor) 20 mg PO HS 10/28/14 07/09/22 multivitamin (Daily Vitamin tablet) 1 ea PO DAILY 11/03/14 07/09/22 apixaban 5 mg tablet (Eliquis) 1 tab PO BID 09/07/15 07/09/22 diltiazem HCl 180 mg capsule,24 180 mg PO DAILY ##20 12/19/16 07/09/22 hr,extended release metoprolol succinate 50 mg 50 mg PO DAILY 04/17/20 07/09/22 tablet,extended release 24 hr Previous Rx's Medication Instructions Recorded diltiazem HCl 180 mg capsule,24 180 mg PO DAILY ##20 12/19/16 hr,extended release Allergies Allergy/AdvReac Type Severity Reaction Status Date / Time No Known Allergies Allergy Unverified 12/31/20 07:21 General Stated Complaint: Abd Prob NURIA: 4 Review of Systems All systems reviewed & are unremarkable except as noted in HPI and below PFSH All Active Problems (Updated 07/09/22 @ 05:32 by Sterling Mendez DO) Decreased frequency of bowel movements (Acute) Hyperplastic colon polyp (Acute) Tubular adenoma of colon (Acute) CAD (coronary artery disease) (Chronic) Hyperlipidemia (Chronic) Atrial fibrillation (Acute 10/28/14) Cough (Acute 10/28/14) Chronic kidney disease (Chronic) Screening for colon cancer (Acute) Medical History CAD (coronary artery disease) Hx of adenomatous colonic polyps Hx of sciatica pt. doesnt remember this Hx of small bowel obstruction Hx of urinary tract obstruction Hyperlipemia Paroxysmal atrial fibrillation F/U pcp Dr. Cortes regularly, pt. states he has been on medications with no issues. Surgical History Colonoscopy - IV Sedation (05/16/16) Coronary Stent 1x 03/14/2000 Hx of transurethral prostatectomy Social History Smoking/Tobacco Use Status: Former Tobacco Use Quit Date: 03/14/00 Smoking risk assessment performed?: Yes Alcohol Intake: current Alcohol Intake frequency: a few times a month Alcohol type: beer and wine Drug use: Never Substance use type: does not use Do you feel safe at home: Yes Do you feel safe in your relationship?: Yes Exam Narrative Exam Narrative: 1.Const: Well-nourished, Well-developed, appearing stated age 2.Eyes: PERRL, no conjunctival injection, and symmetrical lids. 3.ENT: Atraumatic external nose and ears. Moist MM. Neck: Symmetric, trachea midline, No thyromegaly. 4.CVS: +S1/S2, No murmurs or gallops. Peripheral pulses 2+ and equal in all extremities. Brisk capillary refill in all extremities. 5.RESP: Unlabored respiratory effort. Clear to auscultation bilaterally. No wheezes rales or rhonchi 6.GI: Soft, Nontender/Nondistended, No hepatosplenomegaly. No guarding or rebound. 7.MSK: Normocephalic/Atraumatic, Extremities w/o deformity or ttp No cyanosis or clubbing, Normal movement of all extremities 8.Skin: Warm, Dry. No rashes or lesions. 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 Sensation grossly intact, no focal neurologic deficits. 10.Psych: (AAO) x3. Appropriate mood and affect Course Vital Signs Vital signs: Vital Signs Temperature 36.7 C 07/09/22 04:35 Pulse 89 07/09/22 04:35 Respiratory Rate 21 07/09/22 04:35 Blood Pressure 145/79 H 07/09/22 04:35 Pulse Oximetry 97 07/09/22 04:35 Temperature 36.7 C 07/09/22 04:35 Temperature Source Temporal Artery Scan 07/09/22 04:35 Pulse 89 07/09/22 04:35 Respiratory Rate 21 07/09/22 04:35 Blood Pressure 145/79 H 07/09/22 04:35 Blood Pressure Position Sitting 07/09/22 04:35 Pulse Oximetry 97 07/09/22 04:35 Oxygen Delivery Method Room Air 07/09/22 04:35 Oxygen Flow Rate 0 07/09/22 04:35 Pain Level 0 07/09/22 04:35
[2022-07-09 04:58] LABS: Abs Immature Grans 0.01 10^3/uL (0.0-0.06); Absolute Basophil Count 0.07 10^3/uL (0.0-0.2); Absolute Eosinophil Count 0.13 10^3/uL (0.0-0.7); Absolute Lymphocyte Count 1.39 10^3/uL (1.2-3.4); Absolute Monocyte Count 0.44 10^3/uL (0.1-0.8); Absolute Neutrophil Count 3.51 10^3/uL (1.2-6.7); Basophils % 1.3; Eosinophils % 2.3; HGB 15.8 g/dL (13.5-17.5); Immature Grans % 0.2; MCH 30.8 pg (27.0-33.0); MCHC 32.9 % (32.0-36.0); MCV 94 fL (80-95); MPV 9.1 fL (8.0-11.0); Monocytes % 7.9; Neutrophils % 63.3; Platelet Count 206 10^3/uL (130-400); RBC 5.13 10^6/uL (4.36-5.78); RDW 12.8 % (11.8-14.1); WBC 5.55 10^3/uL (4.4-10.8)
[2022-07-09 05:13] LABS: ALT 31 U/L (16-63); AST 19 U/L (15-37); Albumin 4.2 g/dL (3.4-5.0); Alkaline Phosphatase 107 U/L (46-116); Anion Gap 8.9 mmol/L (3-11); BUN 15 mg/dL (7-18); Bilirubin, Total 1.1 mg/dL (0.2-1.0); CO2 29.1 mmol/L (21.0-32.0); CREATININE 1.3 mg/dL (0.70-1.30); Calcium 9.4 mg/dL (8.5-10.1); Chloride 104 mmol/L (98-107); Estimated GFR 55.88 (mL/min/1.73m2); Glucose 116 mg/dL (74-106); Potassium 4.1 mmol/L (3.5-5.1); Sodium 142 mmol/L (136-145)
--- NOTE | 2022-07-09 05:30 | DI.VRAD_ITS ---
PROCEDURE INFORMATION: Exam: CT Abdomen And Pelvis Without Contrast Exam date and time: 07/09/2022 4:50 AM Age: 77 years old Clinical indication: Bloating and other: Diarrhea, bloody stool; Prior surgery; Surgery date: 6+ months; Surgery type: HX of transurethral prostatectomy; Patient HX: Diarrhea, now did have 1 bloody stool, bloating TECHNIQUE: Imaging protocol: Computed tomography of the abdomen and pelvis without contrast. Radiation optimization: All CT scans at this facility use at least one of these dose optimization techniques: automated exposure control; mA and/or kV adjustment per patient size (includes targeted exams where dose is matched to clinical indication); or iterative reconstruction. COMPARISON: CT ABDOMEN PELVIS W 01/23/2019 11:45 PM FINDINGS: Limitations: Mild motion artifact. No contrast was administered, limiting evaluation for some pathologies. Lungs: Hyperinflated lungs. Reticulonodular densities at the lung bases bilaterally suggesting small airways disease. Please correlate clinically. Coronary arteries: Coronary artery calcifications. Liver: No focal hepatic lesion identified, within the limitations of a noncontrast examination. Gallbladder and bile ducts: No radiodense gallbladder calculi seen. Pancreas: No CT evidence for acute pancreatitis. Spleen: No splenomegaly. Adrenal glands: No mass. Kidneys and ureters: Punctate nonobstructing right renal calculi. No hydronephrosis. Stomach and bowel: Duodenal diverticulum. No intestinal obstruction is evident. Colonic diverticula are identified but there is no CT evidence for diverticulitis. Appendix: No evidence of appendicitis. Intraperitoneal space: No free air. Vasculature: Arterial calcifications. Lymph nodes: No acute findings. Urinary bladder: No acute findings. Reproductive: Enlarged prostate. Bones/joints: No pertinent acute abnormality seen. Soft tissues: Small fat containing inguinal hernias. IMPRESSION: 1. No acute findings to explain reported symptoms, within the limitations of a noncontrast examination. 2. Nonacute findings as outlined above. Dictated and Authenticated by: Joana Strauss MD. Ordering:TINA Katz MD
[2022-07-09 05:40] VITALS: BP 141/68; PULSE 77; RESP 20; TEMP 37; O2SAT 95
== END 2022-07-09 05:46 | disposition home or self-care (01) ==
PROVIDERS: Emergency Provider Student in an Organized Health Care Education/Training Program; PCP Internal Medicine
DX: R19.5 Other fecal abnormalities (principal); R14.0 Abdominal distension (gaseous)
CPT/HCPCS: 80053; 99284; 74176; 85025

== ENCOUNTER 2022-09-08 14:49 | Outpatient (CLI) | payer MEDICARE, SELFPAY ==
--- NOTE | 2022-09-08 | DI.RAD_ITS ---
Exam(s) XR HIP RT COMPLETE AP PELVIS EXAM: XR HIP RT COMPLETE AP PELVIS CLINICAL HISTORY: RT HIP PAIN, M25.551. TECHNIQUE: 2D digital imaging was performed of the right hip. Four images were obtained. AP pelvis and lateral right hip views were obtained. COMPARISON: No exams were available for comparison FINDINGS: BONES: No acute fracture is present. No bony destructive lesion is seen. JOINTS: No dislocation present. In the right hip there is moderate narrowing of the joint space. Spu rring is seen at the femoral head and the acetabular roof. More mild degenerative changes are seen i n the left hip. The sacroiliac joints of CIS previous are unremarkable. Degenerative changes are se en in the lower lumbar spine with disc space narrowing and endplate osteophytes at L4-L5. SOFT TISSUE: Atherosclerosis is present. IMPRESSION: Moderate osteoarthritis of the right hip. DATA REPOSITORY: RADIATION DOSE DELIVERED:
--- NOTE | 2022-09-08 | DI.RAD_ITS ---
Exam(s) XR KNEE RT 3V AP,LAT,ROLANDO EXAM: XR KNEE RT 3V AP,LAT,ROLANDO CLINICAL HISTORY: RT KNEE PAIN, M25.561. TECHNIQUE: 2D digital imaging was performed of the right knee. Three views obtained. AP, lateral an d PA tunnel views were obtained. COMPARISON: No priors for comparison. FINDINGS: BONES: No acute fracture is present. No bony destructive lesion is seen. JOINTS: The knee is normally aligned. No joint effusion is seen. SOFT TISSUE: Atherosclerosis. IMPRESSION: No acute abnormality. If there is concern for internal derangement and MRI may be obtained for furth er evaluation. DATA REPOSITORY: RADIATION DOSE DELIVERED:
== END 2022-09-08 15:09 ==
LOC: DI 14:50
PROVIDERS: PCP Internal Medicine; Visit Provider Family Medicine
DX: M25.561 Pain in right knee (principal); M25.551 Pain in right hip
CPT/HCPCS: 73562; 73502

== ENCOUNTER 2023-07-11 21:04 | Emergency (ER) | payer MEDICARE, SELFPAY ==
[2023-07-11] VITALS (31 sets, daily range): BP systolic 136–190; BP diastolic 65–117; PULSE 62–79; RESP 12–23; TEMP 36.8; O2SAT 96
--- NOTE | 2023-07-11 21:00 | RT.EKG_ITS ---
APPROVED REPORT Exam: Resting ECG Reason for Exam: a-[place] Patient Location: E HR:75 bpm ECG Measurements Heart Rate 75 AXIS LA 183 P 5 QRSd 132 QRS 4 QT 411 T -11 QTc 462 Conclusion Sinus rhythm...normal P axis, V-rate 60- 99 Ventricular premature complex...V complex w/ short R-R interval Nonspecific intraventricular conduction delay...QRSd >115mS, not LBBB/RBBB Inferior infarct, age indeterminate...Q>35mS, T neg, II III aVF
--- NOTE | 2023-07-11 21:00 | DI.RAD_ITS ---
Exam(s) XR CHEST 2V PA LATERAL EXAM: XR CHEST 2V PA LATERAL CLINICAL HISTORY: palpitations TECHNIQUE: 2D digital imaging was performed. COMPARISON: CR,XR XR CHEST 2V PA LATERAL from 05/06/2020 FINDINGS: Leads overlie the chest. HEART: Normal size. Aorta: Mildly tortuous. PULMONARY VASCULATURE: Normal. LUNGS: Linear scarring at the lung bases. PLEURAL SPACE: No pleural effusion or pneumothorax. BONE:Flowing osteophytes in the spine. Soft tissues: Unremarkable. IMPRESSION: No acute abnormality. DATA REPOSITORY: RADIATION DOSE DELIVERED:
[2023-07-11 21:21] LABS: HCT 48.1 % (40.0-50.0); MCH 30.8 pg (27.0-33.0); MCHC 33.3 % (32.0-36.0); MCV 93 fL (80-95); MPV 9.4 fL (8.0-11.0); Platelet Count 210 10^3/uL (130-400); RDW 12.8 % (11.8-14.1); RDW-SD 43.8 fL; WBC 7.41 10^3/uL (4.4-10.8)
[2023-07-11 21:39] LABS: ALT 38 U/L (16-63); AST 20 U/L (15-37); Albumin 4.1 g/dL (3.4-5.0); Alkaline Phosphatase 112 U/L (46-116); Anion Gap 10.4 mmol/L (3-11); BUN 22 mg/dL (7-18); Bilirubin, Total 0.5 mg/dL (0.2-1.0); CO2 28.6 mmol/L (21.0-32.0); CREATININE 1.4 mg/dL (0.70-1.30); Calcium 9.1 mg/dL (8.5-10.1); Chloride 105 mmol/L (98-107); Estimated GFR 50.81 (mL/min/1.73m2); Glucose 123 mg/dL (74-106); Magnesium 2.1 mg/dL (1.8-2.4); Potassium 3.5 mmol/L (3.5-5.1); Sodium 144 mmol/L (136-145); Troponin I < 50 ng/L (< or =60)
--- NOTE | 2023-07-11 21:41 | ED.GENADUL_ITS ---
Discharge Plan Disposition Patient Disposition: Home Discharge Details Clinical Impression: Heart palpitations Primary Care Provider: Hugh Cortes ED Provider: Cecile Steele Home Meds and New Rx's Prescriptions: Continued multivitamin [Daily Vitamin] 1 EACH tablet 1 ea PO DAILY atorvastatin [Lipitor] 20 MG tablet 20 mg PO HS Eliquis 5 MG tablet 1 tab PO BID diltiazem HCl 180 MG capsule,extended release 24 hr 180 mg PO DAILY Qty: 20 0RF metoprolol succinate 50 MG tablet extended release 24 hr 50 mg PO DAILY Discharge Instructions Additional Instructions: Please call your primary care provider first thing Thursday to schedule a follow up appointment to discuss your urine results. Call Cardiology for an appointment to discuss your palpitations. Return to emergency care if you develop new chest pains, dizziness, weakness, or if you are very worried and need to be rechecked again immediately. Referrals: CARDIOLOGY,[facility] [OTHER] - Hugh Cortes MD [Primary Care Provider] - [facility] General Date/Time Provider Initiated Documentation: 07/11/23 21:11 . HPI Narrative: Ric is a 78-year-old male with history of A-fib but, CT in 2019, HLD, and CKD who presents to the emergency department for evaluation of afib. He reports that this afternoon he felt tired like he had to take a nap and he checked his heart rate. It was irregular based on the pulse ox, between 60 and 90 bpm. This lasted a number of hours, he came to the emergency department to get this checked out. He denies dizziness, chest pain, shortness of breath, extremity weakness/numbness, nausea. He reports that he has a history of paroxysmal A-fib that usually only last for couple of seconds. He is anticoagulated with Eliquis, also takes diltiazem and metoprolol. He denies recent gum bleeding or black/tarry stools. Denies recent OTC medications, recent med changes, caffeine use. Related Data Home Medications Medication Instructions Recorded Confirmed atorvastatin 20 mg tablet (Lipitor) 20 mg PO HS 10/28/14 07/11/23 multivitamin (Daily Vitamin tablet) 1 ea PO DAILY 11/03/14 07/11/23 apixaban 5 mg tablet (Eliquis) 1 tab PO BID 09/07/15 07/11/23 diltiazem HCl 180 mg capsule,24 180 mg PO DAILY ##20 12/19/16 07/11/23 hr,extended release metoprolol succinate 50 mg 50 mg PO DAILY 04/17/20 07/11/23 tablet,extended release 24 hr Previous Rx's Medication Instructions Recorded diltiazem HCl 180 mg capsule,24 180 mg PO DAILY ##20 12/19/16 hr,extended release Allergies Allergy/AdvReac Type Severity Reaction Status Date / Time No Known Allergies Allergy Unverified 07/11/23 21:12 General Stated Complaint: [employer] NURIA: 3 Review of Systems Narrative: see HPI Exam Const General: cooperative, healthy appearing, comfortable, no acute distress and well developed Resp Effort & Inspection: normal respiratory effort and able to speak in complete sentences Auscultation: clear to auscultation bilaterally Cardio Jugular venous pressure: no JVD Rate: regular rate Rhythm: regular rhythm Pulses: radial pulses present GI Inspection: normal to inspection Palpation: soft and nontender Extrem General: normal to inspection and no pedal edema Course Vital Signs Vital signs: Vital Signs Temperature 36.8 C 07/11/23 21:07 Pulse 70 07/11/23 21:07 Respiratory Rate 18 07/11/23 21:07 Blood Pressure 190/96 H 07/11/23 21:07 Pulse Oximetry 96 07/11/23 21:07 Temperature 36.8 C 07/11/23 21:07 Temperature Source Temporal Artery Scan 07/11/23 21:07 Pulse 70 07/11/23 21:07 Respiratory Rate 18 07/11/23 21:09 Respiratory Effort Normal 07/11/23 21:09 Respiratory Depth Normal 07/11/23 21:09 Respiratory Pattern Normal 07/11/23 21:09 Blood Pressure 190/96 H 07/11/23 21:07 Pulse Oximetry 96 07/11/23 21:07 Pain Level 0 07/11/23 21:07 Lab/Test Results Lab/Test Results: Laboratory Tests Range/Units 07/11/23 21:10 WBC (4.4-10.8) 10^3/uL 7.41 RBC (4.36-5.78) 10^6/uL 5.20 Hgb (13.5-17.5) g/dL 16.0 Hct (40.0-50.0) % 48.1 MCV (80-95) fL 93 MCH (27.0-33.0) pg 30.8 MCHC (32.0-36.0) % 33.3 RDW (11.8-14.1) % 12.8 Plt Count (130-400) 10^3/uL 210 MPV (8.0-11.0) fL 9.4 Sodium (136-145) mmol/L 144 Potassium (3.5-5.1) mmol/L 3.5 Chloride (98-107) mmol/L 105 Carbon Dioxide (21.0-32.0) mmol/L 28.6 Anion Gap (3-11) mmol/L 10.4 BUN (7-18) mg/dL 22 H Creatinine (0.70-1.30) mg/dL 1.4 H Est GFR (CKD-EPI 2020) (mL/min/1.73m2) 50.81 Glucose (74-106) mg/dL 123 H Calcium (8.5-10.1) mg/dL 9.1 Magnesium (1.8-2.4) mg/dL 2.1 Total Bilirubin (0.2-1.0) mg/dL 0.5 AST (15-37) U/L 20 ALT (16-63) U/L 38 Alkaline Phosphatase (46-116) U/L 112 Troponin I (< or =60) ng/L < 50 Total Protein (6.4-8.2) g/dL 8.0 Albumin (3.4-5.0) g/dL 4.1 Medical Decision Making Ric is a 78-year-old male with history of A-fib but, CT in 2019, HLD, and CKD who presents to the emergency department for evaluation of afib. He reports that this afternoon he felt tired like he had to take a nap and he checked his heart rate. It was irregular based on the pulse ox, between 60 and 90 bpm. This lasted a number of hours, he came to the emergency department to get this checked out. He denies dizziness, chest pain, shortness of breath, extremity weakness/numbness, nausea. He reports that he has a history of paroxysmal A-fib that usually only last for couple of seconds. He is anticoagulated with Eliquis, also takes diltiazem and metoprolol. He denies recent gum bleeding or black/tarry stools. Denies recent illness, change in PO intake, OTC medications, recent med changes, or caffeine use. Physical exam very reassuring. Patient is alert and oriented, in no acute distress. Easy work of breathing, lung sounds clear bilaterally. Normal heart sounds. Abdomen is soft, nondistended, nontender to palpation. No pedal edema. DDx includes but is not limited to: ACS, afib, electrolyte imbalance, occult infection, kidney dysfunction I independently interpreted the following tests: EKG with NSR rate 75, normal OK and QTC intervals. Widened QRS c/w intraventricular conduction delay. PVC noted. No changes c/w acute ischemia. CBC, CMP, mag, initial troponin (<50) all reassuring. CXR reassuring, no obvious infiltrate or cardiomegaly; this was confirmed by [facility] report. UA significant for trace blood, positive nitrites, trace leuks, 5-10 WBCs. However, few urine bacteria and patient is asymptomatic. I reviewed findings with him, he says that he does have a history of UTI in the past that resulted in TURP procedure. He denies dysuria, frequency, change in urine stream, hematuria. While in the emergency dept Ric remained comfortable with no report of chest pain or palpitations. Reviewed discharge instructions with patient, including f/u with PCP to discuss UA results and cardiology for management of afib/palpitations today. Reviewed red flags indicating need for return to emergency care. Handoff report given to Dr Mendez, griselda physician Quality:SDOH Health Related Social Needs: No Data to Display PFSH All Active Problems (Updated 07/11/23 @ 23:00 by Cecile Santizo) Heart palpitations (Acute) Hyperplastic colon polyp (Acute) Tubular adenoma of colon (Acute) CAD (coronary artery disease) (Chronic) Hyperlipidemia (Chronic) Atrial fibrillation (Acute 10/28/14) Cough (Acute 10/28/14) Chronic kidney disease (Chronic) Screening for colon cancer (Acute) Medical History CAD (coronary artery disease) Hx of adenomatous colonic polyps Hx of sciatica pt. doesnt remember this Hx of small bowel obstruction Hx of urinary tract obstruction Hyperlipemia Paroxysmal atrial fibrillation F/U pcp Dr. Cortes regularly, pt. states he has been on medications with no issues. Surgical History Colonoscopy - IV Sedation (05/16/16) Coronary Stent 1x 03/14/2000 Hx of transurethral prostatectomy Social History Smoking/Tobacco Use Status: Former Tobacco Use Quit Date: 03/14/00 Smoking risk assessment performed?: Yes Alcohol Intake: current Alcohol Intake frequency: a few times a month Alcohol type: beer and wine Drug use: Never Substance use type: does not use Do you feel safe at home: Yes Do you feel safe in your relationship?: Yes Sign Out Sign Out Data: Sign Out Comment: 78 y/o male with h/o CT and afib presented today for evaluation of onset of fatigue with palpitations/irregular HR starting this afternoon. Sx resolved by arrival to ED, asymptomatic here. Labs all reassuring; UA with + nitrites, leuks, few bacteria- asymptomatic bacteruria. Initial trop negative; awaiting 2 hour repeat trop. CXR and EKG reassuring. F/u with PCP and cards recommended. Last updated by Cecile Steele at 07/11/23 23:15 PAWSS Have you Been Recently Intoxicated or Drunk Within the Last 30 days?: No Have you Ever Experienced Previous Episodes of Alcohol Withdrawal?: No Have you ever Experienced Withdrawal Seizures?: No Have you ever Experienced Delirium Tremens(DT)s?: No Have you ever undergone Alcohol Rehabilitation Treatment (i.e, inpt ot outpatient treatment programs)?: No Have you ever Experienced Blackouts?: No Have you ever Combined Alcohol with other Downers within the last 90 days?: No Have you ever Combined Alcohol with any other Substance of Abuse during the last 90 days?: No Positive Blood Alcohol level on Presentation? [PCS.BAL]: Unable to Obtain Evidence of Increased Autonomic Activity (i.e. HR>120, tremor, sweating, agitation, nausea)?: No Result: 0
[2023-07-11 22:26] LABS: Bilirubin Negative (Negative); Blood Trace-lysed (Negative); Clarity Clear (Clear); Glucose Negative (Negative); Ketones Negative (Negative); Leukocyte Esterase Trace (Negative); Nitrite Positive (Negative); Urobilinogen 0.2 mg/dL (Up to 0.2); pH 5.5 (5-8)
[2023-07-11 22:28] LABS: Epithelial Cells Rare HPF (Negative)
[2023-07-11 22:29] LABS: Bacteria Few HPF (Negative); C & S Indicated? Yes; Casts Negative LPF (Negative); Crystals Negative HPF (Negative); Mucus Negative (Negative)
--- NOTE | 2023-07-11 23:07 | DI.VRAD_ITS ---
PROCEDURE INFORMATION: Exam: XR Chest Exam date and time: 07/11/2023 9:50 PM Age: 78 years old Clinical indication: Other: Palpitations TECHNIQUE: Imaging protocol: Radiologic exam of the chest. Views: 2 views. COMPARISON: CR XR CHEST 2V PA LATERAL 05/06/2020 7:05 PM FINDINGS: Lungs: There is platelike atelectasis and/or scarring in the lower lung zones, similar in appearance on the comparison exam from 2019. No pulmonary consolidation is seen. Pleural spaces: No pleural effusion or pneumothorax is demonstrated. Heart/Mediastinum: The heart appears normal in size. Bones/joints: The visualized bony structures appear grossly intact, as seen. There are osteophytes along the thoracic spinal margin. There are degenerative changes at the acromioclavicular joints bilaterally. IMPRESSION: No active disease is seen in the chest. Dictated and Authenticated by: Jason Salinas MD. Ordering:NANY Huber MD
[2023-07-11 23:41] LABS: Troponin I < 50 ng/L (< or =60)
--- NOTE | 2023-07-12 03:42 | NUR.NOTE ---
Pt placed on care management referral list to see cardiology for palpitations to be seen within 1 week.
== END 2023-07-11 23:53 | disposition home or self-care (01) ==
PROVIDERS: Nurse Practitioner Family; Emergency Provider Student in an Organized Health Care Education/Training Program; PCP Internal Medicine
DX: R00.2 Palpitations (principal); I48.0 Paroxysmal atrial fibrillation; I25.10 Atherosclerotic heart disease of native coronary artery without angina pectoris; I25.2 Old myocardial infarction; E78.5 Hyperlipidemia, unspecified; I12.9 Hypertensive chronic kidney disease with stage 1 through stage 4 chronic kidney disease, or unspecified chronic kidney disease; N18.9 Chronic kidney disease, unspecified; Z79.01 Long term (current) use of anticoagulants; Z95.5 Presence of coronary angioplasty implant and graft; Z87.891 Personal history of nicotine dependence
CPT/HCPCS: 36415; 80053; 85027; 93005; 99284; 71046; 81003; 81015; 83735; 84484; 87086; 93010

== ENCOUNTER 2024-01-18 13:44 | Outpatient (REF) | payer MEDICARE, SELFPAY ==
[2024-01-18 14:58] LABS: HCT 48.4 % (40.0-50.0); HGB 15.7 g/dL (13.5-17.5); MCHC 32.4 % (32.0-36.0); MCV 96 fL (80-95); MPV 10.4 fL (8.0-11.0); Platelet Count 187 10^3/uL (130-400); RBC 5.07 10^6/uL (4.36-5.78); RDW 13.2 % (11.8-14.1); RDW-SD 46.4 fL; WBC 7.84 10^3/uL (4.4-10.8)
[2024-01-18 15:25] LABS: ALT 35 U/L (16-63); AST 17 U/L (15-37); Alkaline Phosphatase 109 U/L (46-116); Anion Gap 8.7 mmol/L (3-11); BUN 22 mg/dL (7-18); Bilirubin, Total 0.65 mg/dL (0.2-1.0); CO2 27.3 mmol/L (21.0-32.0); CREATININE 1.2 mg/dL (0.70-1.30); Calcium 8.9 mg/dL (8.5-10.1); Chloride 106 mmol/L (98-107); Estimated GFR 61.13 (mL/min/1.73m2); Glucose 92 mg/dL (74-106); LDL CHOLESTEROL 76 mg/dL (<100); Potassium 4.5 mmol/L (3.5-5.1); Sodium 142 mmol/L (136-145); Total Protein 7.1 g/dL (6.4-8.2)
== END 2024-01-18 13:45 | disposition home or self-care (01) ==
LOC: NCHCN 13:44
PROVIDERS: PCP Family Medicine; Visit Provider Family Medicine
DX: E78.5 Hyperlipidemia, unspecified (principal); N18.30 Chronic kidney disease, stage 3 unspecified
CPT/HCPCS: 80053; 83721; 85027

== ENCOUNTER 2024-03-16 18:16 | Observation (INO) | payer MEDICARE, SELFPAY ==
[2024-03-16] VITALS (57 sets, daily range): BP systolic 111–152; BP diastolic 51–81; PULSE 34–91; RESP 10–24; TEMP 36.6; O2SAT 90–96
--- NOTE | 2024-03-16 18:15 | RT.EKG_ITS ---
APPROVED REPORT Exam: Resting ECG Reason for Exam: low HR Patient Location: E HR:51 bpm ECG Measurements Heart Rate 51 AXIS UT [id number] P [id number] QRSd 134 QRS 29 QT 514 T 10 QTc 472 Conclusion Slow atrial fibrillation, rate 51 PVCs Q waves III, aVF consistent with old inferior infarct No STEMI
--- NOTE | 2024-03-16 18:31 | W.ED.GENAD ---
Discharge Plan Disposition Patient Disposition: Admit to [facility] Condition: Stable Discharge Details Chief Complaint: [id number] Clinical Impression: Bradycardia, CAD (coronary artery disease), Hyperlipidemia, Chronic kidney disease, Atrial fibrillation Primary Care Provider: Pritesh Davis ED Provider: Jaqueline Fang Home Meds and New Rx's Prescriptions: No Action multivitamin [Daily Vitamin] 1 EACH tablet 1 ea PO DAILY atorvastatin [Lipitor] 20 MG tablet 20 mg PO HS Eliquis 5 MG tablet 1 tab PO BID diltiazem HCl 180 MG capsule,extended release 24 hr 180 mg PO DAILY Qty: 20 0RF metoprolol succinate 50 MG tablet extended release 24 hr 50 mg PO DAILY HPI General Mode of arrival: ambulatory. Date/Time Provider Initiated Documentation: 03/16/24 18:17. Limitations to Documentation: no limitations. Information obtained by: patient and old records reviewed. HPI Narrative: HPI: This is an 78-year-old male patient with a past medical history significant for CAD, SD, CKD, and atrial fibrillation on Eliquis, who is presenting for evaluation of lightheadedness. He reports that his lightheadedness occurred approximately 20 minutes prior to arrival. He felt slightly lightheaded when sitting, and then when he stood up he felt much worse. He did not lose consciousness, faint, and his lightheadedness has resolved now that he is laying down. He reports that he put on his Apple Watch and could tell that his heart rate was irregular. He was prompted to seek care at the request of his daughter, whom he contacted. The patient reports he has been taking his medications as prescribed, which include diltiazem, metoprolol, and Eliquis. He has not taken any extra as of this medication or missed any doses. He has a history of paroxysmal atrial fibrillation and can often feel when he is in A-fib. The patient has not had any chest pain, shortness of breath, or other complaints. Right now he feels back to his baseline. He has not noted any leg swelling or calf tenderness, and does not have a heart failure history. Exam: Gen: Awake and alert, in no apparent distress HEENT: Non-icteric sclera Neck: Supple Lungs: No apparent respiratory distress, normal respiratory effort. Lung sounds clear and equal bilaterally CV: Appears well perfused, heart with irregularly irregular rhythm, bradycardic rate, strong distal pulses. No murmurs auscultated Abdomen: Non-distended, soft, nontender MSK: Moves 4 extremities without apparent limitation in ROM. No peripheral edema, no calf swelling or tenderness Skin: Visualized skin without rashes, cyanosis. Neuro: Normal Gait, no obvious focal deficits or facial asymmetry. Speaks in full, clear sentences. Psych: Appropriate for situation. MDM: This is an 78-year-old male patient presenting for evaluation of lightheadedness in the setting of atrial fibrillation and bradycardia. My differential includes but is not limited to arrhythmia, medication effect, brash syndrome, electrolyte derangement, kidney injury. Certainly considered inadvertent excessive medication use, as well as ACS. Currently, the patient is hemodynamically appropriate and asymptomatic. Will continue to monitor his blood pressure and keep him on telemetry. We will obtain laboratory studies to include CBC, CMP, magnesium, troponin, and I will provide the patient with a liter of IV fluids as well as 2 g of magnesium. ED Course: I independently interpreted the patient's EKG, which shows a slow atrial fibrillation with PVCs, Q waves in the inferior leads are noted but no evidence of acute ischemia, QTc borderline prolonged at 472. I independently interpreted the laboratory studies, which show no significant leukocytosis, anemia, or thrombocytopenia. The chemistry panel is without evidence of electrolyte abnormality or liver injury. The patient has a very increase in his BUN and creatinine from baseline, 26 and 1.5 today From a baseline of approximately 1.1. Troponin was 8 x 2 checks, with no delta change. In the absence of chest pain or ischemic EKG findings, this meets criteria for high-sensitivity troponin protocol to stop rechecks. The patient was monitored on telemetry and did not have any improvement in his heart rate after fluids or magnesium. He remains in a slow atrial fibrillation with rates in the 30s to 40s. He has remained asymptomatic, with blood pressures that are appropriate, and I am most suspicious for medication effect in the setting of a mild GRANT. I reached out to [facility] cardiology, and while awaiting callback the patient was noted to convert into a sinus rhythm, rate of 60, with an ongoing high burden of PVCs. He remains asymptomatic and hemodynamically appropriate. Cardiology recommended that the patient be taken off of his diltiazem, and continue metoprolol only. I did provide him with a dose of Eliquis. Given the high burden of PVCs and the long-acting nature of the medications, they recommended that he either be discharged on a Zio patch or observed overnight and discharged. Given the inability to get a Zio patch in the emergency department, I admitted him to our hospitalist who is graciously accepted this patient for observation on telemetry. Transferred from the emergency department without incident, remained hemodynamically stable while under my care. Jaqueline Fang MD Related Data Home Medications ?Medication ?Instructions ?Recorded ?Confirmed atorvastatin 20 mg tablet (Lipitor) 20 mg PO HS 10/28/14 03/16/24 multivitamin (Daily Vitamin tablet) 1 ea PO DAILY 11/03/14 03/16/24 apixaban 5 mg tablet (Eliquis) 1 tab PO BID 09/07/15 03/16/24 diltiazem HCl 180 mg capsule,24 180 mg PO DAILY ##20 12/19/16 03/16/24 hr,extended release metoprolol succinate 50 mg 50 mg PO DAILY 04/17/20 03/16/24 tablet,extended release 24 hr Previous Rx's ?Medication ?Instructions ?Recorded diltiazem HCl 180 mg capsule,24 180 mg PO DAILY ##20 12/19/16 hr,extended release Allergies Allergy/AdvReac Type Severity Reaction Status Date / Time No Known Allergies Allergy Unverified 03/16/24 18:25 General Stated Complaint: [id number] NURIA: 2 Course Vital Signs Vital signs: Vital Signs Temperature 36.6 C 03/16/24 18:17 Pulse 34 L 03/16/24 18:17 Respiratory Rate 12 03/16/24 18:17 Blood Pressure 124/64 03/16/24 18:17 Pulse Oximetry 94 03/16/24 18:17 Temperature 36.6 C 03/16/24 18:17 Temperature Source Oral 03/16/24 18:17 Pulse 34 L 03/16/24 18:17 Respiratory Rate 12 03/16/24 18:17 Respiratory Effort Normal, Non-Labored 03/16/24 18:28 Blood Pressure 124/64 03/16/24 18:17 Blood Pressure Position Sitting 03/16/24 18:17 Pulse Oximetry 94 03/16/24 18:17 Oxygen Delivery Method Room Air 03/16/24 18:17 Oxygen Flow Rate 0 03/16/24 18:17 Pain Level 0 03/16/24 18:17 Medical Decision Making Quality:SDOH Health Related Social Needs: No Data to Display PFSH All Active Problems (Updated 03/16/24 @ 23:35 by Jaqueline Fang MD) Bradycardia (Acute) Hyperplastic colon polyp (Acute) Tubular adenoma of colon (Acute) CAD (coronary artery disease) (Chronic) Hyperlipidemia (Chronic) Atrial fibrillation (Acute 10/28/14) Cough (Acute 10/28/14) Chronic kidney disease (Chronic) Screening for colon cancer (Acute) Medical History CAD (coronary artery disease) Hx of adenomatous colonic polyps Hx of sciatica pt. doesnt remember this Hx of small bowel obstruction Hx of urinary tract obstruction Hyperlipemia Paroxysmal atrial fibrillation F/U pcp Dr. Sebastian george, pt. states he has been on medications with no issues. Surgical History Colonoscopy - IV Sedation (05/16/16) Coronary Stent 1x 03/14/2000 Hx of transurethral prostatectomy Social History Smoking/Tobacco Use Status: Former Tobacco Use Quit Date: 03/14/00 Smoking risk assessment performed?: Yes Alcohol Intake: current Alcohol Intake frequency: a few times a month Alcohol type: beer and wine Drug use: Never Substance use type: does not use Housing: house Do you feel safe at home: Yes Do you feel safe in your relationship?: Yes PAWSS Have you Been Recently Intoxicated or Drunk Within the Last 30 days?: No Have you Ever Experienced Previous Episodes of Alcohol Withdrawal?: No Have you ever Experienced Withdrawal Seizures?: No Have you ever Experienced Delirium Tremens(DT)s?: No Have you ever undergone Alcohol Rehabilitation Treatment (i.e, inpt ot outpatient treatment programs)?: No Have you ever Experienced Blackouts?: No Have you ever Combined Alcohol with other Downers within the last 90 days?: No Have you ever Combined Alcohol with any other Substance of Abuse during the last 90 days?: No Positive Blood Alcohol level on Presentation? [PCS.BAL]: No Evidence of Increased Autonomic Activity (i.e. HR>120, tremor, sweating, agitation, nausea)?: No Result: 0
[2024-03-16 18:35] LABS: Abs Immature Grans 0.01 10^3/uL (0.0-0.06); Absolute Basophil Count 0.09 10^3/uL (0.0-0.2); Absolute Eosinophil Count 0.16 10^3/uL (0.0-0.7); Absolute Lymphocyte Count 2.67 10^3/uL (1.2-3.4); Absolute Monocyte Count 0.65 10^3/uL (0.1-0.8); Absolute Neutrophil Count 4.21 10^3/uL (1.2-6.7); Basophils % 1.2 %; Eosinophils % 2.1 %; HCT 48.2 % (40.0-50.0); Immature Grans % 0.1 %; Lymphocytes % 34.3 %; MCH 31.4 pg (27.0-33.0); MCHC 33.2 % (32.0-36.0); MCV 95 fL (80-95); MPV 9.6 fL (8.0-11.0); Monocytes % 8.3 %; Platelet Count 236 10^3/uL (130-400); RDW 12.7 % (11.8-14.1); RDW-SD 44.6 fL; WBC 7.79 10^3/uL (4.4-10.8)
[2024-03-16] MEDS: MAGNESIUM SULFATE 2 GM/50 ML BAG IV_INF (18:43)
[2024-03-16] MEDS: Lactated Ringers 1,000 ML 1000 ML IV (18:44)
[2024-03-16 18:52] LABS: ALT 34 U/L (16-63); AST 16 U/L (15-37); Albumin 3.9 g/dL (3.4-5.0); Alkaline Phosphatase 120 U/L (46-116); Anion Gap 10.5 mmol/L (3-11); BUN 26 mg/dL (7-18); Bilirubin, Total 0.47 mg/dL (0.2-1.0); CO2 27.5 mmol/L (21.0-32.0); CREATININE 1.5 mg/dL (0.70-1.30); Calcium 9.3 mg/dL (8.5-10.1); Chloride 106 mmol/L (98-107); Estimated GFR 46.77 (mL/min/1.73m2); Glucose 161 mg/dL (74-106); Magnesium 2.1 mg/dL (1.8-2.4); Potassium 4.1 mmol/L (3.5-5.1); Sodium 144 mmol/L (136-145); Total Protein 7.8 g/dL (6.4-8.2); Troponin I 8 ng/L (<or=76)
[2024-03-16 19:55] LABS: Troponin I 8 ng/L (<or=76)
--- NOTE | 2024-03-16 20:15 | RT.EKG_ITS ---
APPROVED REPORT Exam: Resting ECG Reason for Exam: Repeat, bradycardia Patient Location: E HR:36 bpm ECG Measurements Heart Rate 36 AXIS LA 184 P 31 QRSd 73 QRS 16 QT 520 T -9 QTc 404 Conclusion Sinus bradycardia vs slow a-fib (p waves noted V2-V5, not clear in lead II), rate 36 No interval abnormalities, QTc 404 now from 472 on prior EKG No STEMI Old inf. infact, Q waves III, aVF
--- OUTSIDE RECORDS SUMMARY | 2024-03-16 20:27 | XMS_ITS | Encounter Summary ---
[facility] Organization [facility] [place] [address] Care Team Providers Care Summer Child Caregiver Name Role Phone Hugh Cortes MD Primary Care Provider + [phone] Reason for Visit * Reason Comments Atrial Fibrillation Encounter Details Date Type Department Care Team (Late st Contact Info) Description 02/02/2017 8:00 AM EDT Office Visit Cardiology at [address] [id number] Ariel Walden MD [facility] [place] [address] Persistent atrial fibrillation Social History Tobacco Use Types Packs/Day Years Used Date Smoking Tobacco: Former Cigarettes Q uit: 03/14/2000 Smokeless Tobacco: Never Sex and Gender Information Value Date Recorded Sex Assigned at Not on file Gender Identity Not on file Sexual Orientation Not on file documented as of this encounter Last Filed Vital Signs Vital Sign Reading Time Taken Comments Blood Pressure 131/78 02/02/2017 7:43 AM EDT Pulse 54 02/02/2017 7:43 AM EDT Temperature - - Respiratory Rate - - Oxygen Saturation 97% 02/02/2017 7:43 AM EDT Inhaled Oxygen Concentration - - Weight 107.3 kg (236 lb 9.6 oz) 02/02/2017 7:43 AM EDT Height 191.8 cm (6' 3.5) 02/02/2017 7:43 AM EDT Body Mass Index 29.18 02/02/2017 7:43 AM EDT documented in this encounter Progress Notes * Ariel Walden MD - 02/02/2017 8:00 AM EDT Images from the original note were not included. CARDIOVASCULAR MEDICINE [place] [address] Subjective Identification Ric Loyola is a 71 y.o. patient of Hugh Cortes MD with the following cardiovascular issues: 1. Atrial fibrillation--- paroxysmal, first episode October 2014, recurrence Dec 2016. anticoagulated with apixaban 2. Coronary artery disease---s/p AL in 1999 with stent to RCA at [facility]. 3. Ischemic cardiomyopathy--- apical scar with mild LV dysfunction on echo. 4. Hyperlipidemia Comorbidities include hx of adenomatous polyps. Present Illness I have been asked to see this patient by Dr. Butch Cortes and the patient's daughter for evaluation and management of atrial fibrillation. I reviewed his past medical history and summarized above. He tells me that he did well following his AL in 1999 up until October 2014 when he felt funny. It was not chest pain but clearly something was off in his chest. He went to the emergency room and was found to be in atrial fibrillation. He was admitted and had prompt return to sinus rhythm with IV diltiazem. He was discharged and started on warfarin but due to to poor control, was switched to apixaban. Hedid well until this December with a second episode of atrial fibrillation. On this occasion, he was started on diltiazem in addition to metoprolol and since discharge discharge has felt pretty well. Heoccasionally has some flip-flops. He has felt some fatigue. Regarding triggers, he has consumed a large amount of dark gross coffee, 6-8 cups per day in the past. Alcohol use has been minimal only 1-2 beers on special occasions. He has no symptoms of obstructive sleep apnea. He is familiar with this as his has sleep apnea. He has no evidence of valvularr heart disease. He enjoys snowshoeing in the winter and stream fishing in the summer. 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 Review of Systems As noted above in present illness. Otherwise negative. Social History Social History Narrative Lives with in [place], [place] Retired. Medications Current Outpatient Prescriptions: ??? atorvastatin (LIPITOR) 20 mg Tablet, Take 20 mg by mouth daily., Disp: , Rfl: ??? meTOPROLOL succinate (TOPROL-XL) 50 mg Tablet Sustained Release 24 hr, Take 50 mg by mouth 2 times daily., Disp: , Rfl: ??? apixaban (ELIQUIS) 5 mg Tablet, Take 5 mg by mouth 2 times daily., Disp: , Rfl: ??? DILTiazem (CARDIZEM CD) 180 mg Capsule, Sust. Release 24 hr, Take 180 mg by mouth daily., Disp:, Rfl: ??? nitroGLYcerin (NITROSTAT) 0.4 mg SL tablet, 0.4mg, Sublingual, Q 5 min prn, Disp: , Rfl: No Known Allergies Objective Physical Exam BP 131/78 Pulse 54 Ht (!) 191.8 cm (6' 3.5) Wt (!) 107.3 kg (236 lb 9.6 oz) SpO2 97% BMI29.18 kg/m2, Body mass index is 29.18 kg/(m^2). He is a healthy-appearing man in good spirits. He is here alone. Skin is warm and dry. Lungs are clear to auscultation. Jugular venous pressure is not elevated. No abdominojugular reflux. No carotid bruits. Heart sounds are regular without murmurs rubs or gallops. Abdomen soft nontender. He has no peripheral edema. Data ?? Nuclear stress testing showed a small moderate intensity fixed defect involving the mid and distal inferior wall in November 2014 ?? Echocardiography in October 2014 showed last EF 45-50 with distal inferior akinesis. Laboratory work done in December showed normal electrolytes, creatinine of 1.3, and normal magnesium. Assessment I explained to him that I thought his current strategy of rhythm control using safe, well-toleratedmedication seem to be quite satisfactory. He seems to be particularly responsive to diltiazem so I think it is important to continue this medication. Metoprolol may be less important and given his current heart rate of 47 on EKG, I think metoprolol can be reduced to 50 mg once daily. I think it makes sense to continue to avoid large amounts of caffeine and alcohol. Maintaining physical activity and a healthy weight seems to reduce the burden of paroxysmal atrial fibrillation as well. I agree with the use of apixaban for anticoagulation and told him it is important that he have his kidney function checked every year or 2 as this medication is cleared by the kidneys. Should he have further episodes of atrial fibrillation, I think the next step would be to consider admission for sotalol load. This was not effective, would consider dofetilide and if two drugs proved unsuccessful in satisfactory control of his atrial fibrillation, would then consider ablation. Plan ?? Recommended reduction of metoprolol succinate to 50 mg once a day or 25 mg twice daily ?? Encouraged continued physical activity ?? Follow-up as dea Walden MD [facility] This note was generated with [employer] voice recognition software and there may be some errors which escaped proofreading. cc: ?? Hugh Cortes MD [address] / [place] [address] documented in this encounter Plan of Treatment Not on file documented as of this encounter Procedures Procedure Name Priority Date/Time Associated Diagnosis Comments EKG 12-LEAD Routine 02/02/2017 7:59 AM EDT Persistent atrial fibrillation documented in this encounter Results * EKG 12 Lead (02/02/2017 7:59 AM EDT) Ventricular rate 47 BPM MUSE SYSTEM Atrial Rate 47 BPM MUSE SYSTEM P-R Interval 202 ms MUSE SYSTEM QRS Duration 110 ms MUSE SYSTEM Q-T Interval 452 ms MUSE SYSTEM QTC Calculated (Bezet) 400 ms MUSE SYSTEM Calculated P Cisco -25 degrees MUSE SYSTEM Calculated R Cisco 0 degrees MUSE SYSTEM Calculated T Cisco -5 degrees MUSE SYSTEM INTERPRETATION Marked sinus bradycardia Inferior infarct (cited on or before 15-MAR-2000) Cannot rule out Anterior infarct , age undetermined Abnormal ECG When compared with ECG of 17-MAR-2000 07:24, T wave inversion less evident in Inferior leads T wave amplitude has decreased in Anterior leads Confirmed by MD CHERRI, KAREN ([id number]) on 02/02/2017 4:38:51 PM MUSE SYSTEM 02/02/2017 7:59 AM EDT 02/02/2017 4:38 PM EDT Ariel Walden MD ECG ORDERABLES MUSE SYSTEM documented in this encounter Visit Diagnoses Diagnosis Persistent atrial fibrillation Atrial fibrillation documented in this encounter Care Teams Summer Child Caregiver Relationship Specialty Start Date End Date Hugh Cortes MD [address] [place] [address] PCP - General Internal Medicine 02/02/17 12/12/21 documented as of this encounter
--- OUTSIDE RECORDS SUMMARY | 2024-03-16 20:27 | XMS_ITS | Encounter Summary ---
[place] [address] Care Team Providers Care Senior Teradata Developer Name Role Phone Pritesh Davis MD Primary Care Provider [phone] Encounter Details Date Type Department Care Team (Late st Contact Info) Description 03/16/2024 External [place] [id number] Social History Tobacco Use Types Packs/Day Years Used Date Smoking Tobacco: Former Cigarettes Q uit: 03/14/2000 Smokeless Tobacco: Never Alcohol Use Standard Drinks/Week Comments Not Currently 0 (1 standard drink = 0.6 oz pur e alcohol) Sex and Gender Information Value Date Recorded Sex Assigned at Not on file Gender Identity Not on file Sexual Orientation Not on file documented as of this encounter Plan of Treatment Not on file documented as of this encounter Procedures Procedure Name Priority Date/Time Associated Diagnosis Comments MISC EXTERNAL CARDIOLOGY RESULT Routine 03/16/2024 8:08 PM EST documented in this encounter Results * External Cardiology Result (03/16/2024 8:08 PM EST) Anatomical Region Laterality Modality Other Historical Provider EXTERNAL CARDIOLO GY RESULT documented in this encounter Visit Diagnoses Not on filedocumented in this encounter Care Teams Senior Teradata Developer Relationship Specialty Start Date End Date Pritesh Davis MD [address] [place] [address] PCP - General Family Medicine 12/13/21 documented as of this encounter
--- OUTSIDE RECORDS SUMMARY | 2024-03-16 20:27 | XMS_ITS | Clinical Summary ---
Author Organization [facility] [place] [address] Care Team Providers Care Jacker Name Role Phone Pritesh Davis MD Primary Care Provider [phone] Allergies No known active allergies Medications Medication Sig Dispensed Refills Start Date End Date Status nitroGLYcerin (NITROSTAT) 0.4 mg SL tablet 0.4mg, Sublingual, Q 5 min prn 03/17/2000 Active atorvastatin (LIPITOR) 20 mg Tablet Take 20 mg by mouth daily. Active meTOPROLOL succinate (TOPROL-XL) 50 mg Tablet Sustained Release 24 hr Take 50 mg by mouth daily. Active DILTiazem (CARDIZEM CD) 180 mg Capsule, Sust. Release 24 hr Take 180 mg by mouth daily. Active multivitamin (THERAGRAN) Tablet Take 1 tablet by mouth nightly. Active Active Problems Problem Noted Date Diagnosed Date Hematochezia 12/14/2021 Persistent atrial fibrillation 01/29/2017 Coronary artery disease 01/29/2017 Hyperlipidemia 01/29/2017 Encounters Date Type Department Care Team Description 03/16/2024 External [place] [address] from Last 3 Months Social History Tobacco Use Types Packs/Day Years Used Date Smoking Tobacco: Former Cigarettes Q uit: 03/14/2000 Smokeless Tobacco: Never Alcohol Use Standard Drinks/Week Comments Not Currently 0 (1 standard drink = 0.6 oz pur e alcohol) Sex and Gender Information Value Date Recorded Sex Assigned at Not on file Gender Identity Not on file Sexual Orientation Not on file Last Filed Vital Signs Vital Sign Reading Time Taken Comments Blood Pressure 132/72 12/15/2021 11:48 AM EDT Pulse 66 12/15/2021 11:00 AM EDT Temperature 36.6 ??C (97.9 ??F) 12/15/2021 1 1:48 AM EDT Respiratory Rate 18 12/15/2021 11:4 8 AM EDT Oxygen Saturation 96% 12/15/2021 11: 48 AM EDT Inhaled Oxygen Concentration - - Weight 102.1 kg (225 lb 1.4 oz) 022 11:00 AM EDT Height 193 cm (6' 4) 12/15/2021 11:00 AM EDT Body Mass Index 27.4 12/15/2021 11:00 AM EDT Plan of Treatment Health Maintenance Due Date Last Done Comments CT Colonography 1945 FIT DNA 1945 FIT 1945 Sigmoidoscopy 1945 Hepatitis C Screening 1961 Tetanus/Diphtheria/Pertussis Vaccines (1 - Tdap) 1962 Zoster vaccine (1 of 2) 1993 Advance Directive 1998 Pneumoccocal Vaccine: 65+ (1 of 1 - PCV) 2008 Covid-19 Vaccine (1 - season) 2024 Influenza (Flu) vaccine (1 o f 1 - Influenza standard series) 01/10/2024 Colonoscopy 12/15/2024 12/15/2021, 12/15/2021 Colorectal Cancer Screening 12/15/2024 Sigmoidoscopy (10 year) with FIT yearly 12/16/2031 0 12/15/2021, 12/15/2021 Procedures Procedure Name Priority Date/Time Associated Diagnosis Comments MISC EXTERNAL CARDIOLOGY RESULT Routine 03/16/2024 8:08 PM EST COLONOSCOPY Routine 12/15/2021 9:26 AM EDT from Last 3 Months or Most Recently Relevant to Health Maintenance Results * External Cardiology Result (03/16/2024 8:08 PM EST) Anatomical Region Laterality Modality Other Historical Provider MD PARRISH CARDIOLO GY RESULT * COLONOSCOPY (12/15/2021 9:26 AM EDT) [facility] Signature COLONOSCOPY [facility] Endoscopy Procedure Date: 12/15/2021 9:26 AM ? Patient Name: Ric Loyola ? Date of : 1945 ? Age: 76 ? Order #: [id number] ? Instrument Name: [id number] ? Procedure: ? Colonoscopy Indications: ? Hematochezia Providers: ? Sanjuana Stuart MD, Milady Hernandez, ? Hugh Oliver, Delio Wheat Referring : ? Medicines: ? Fentanyl 200 micrograms IV, ? Midazolam 4 mg IV Complications: ? No immediate complications. Procedure: ? Pre-Anesthesia Assessment: ? - Prior to the procedure, a History ? and Physical was performed, and ? patient medications and allergies ? were reviewed. The patient's ? tolerance of previous anesthesia ? was also reviewed. The risks and ? benefits of the procedure and the ? sedation options and risks were ? discussed with the patient. All ? questions were answered, and ? informed consent was obtained. ? Prior Anticoagulants: The patient ? last took Eliquis (apixaban) 2 days ? prior to the procedure. ASA Grade ? Assessment: III - A patient with ? severe systemic disease. After ? reviewing the risks and benefits, ? the patient was deemed in ? satisfactory condition to undergo ? the procedure. ? The procedure, indications, ? benefits, risks and alternatives ? were explained to the patient. ? Specifically discussed were ? potential complications including, ? but not limited to, bleeding, ? perforation, infection, missing a ? cancer, and adverse medication ? reactions. The patient was placed ? in the left lateral decubitus ? position, and a digital rectal exam ? was performed. The Colonoscope was ? inserted in the anus and under ? direct visualization, advanced to. ? Careful inspection was made as the ? colonoscope was withdrawn. The ? colonoscopy was performed without ? difficulty. The patient tolerated ? the procedure well. The quality of ? the bowel preparation was evaluated ? using the BBPS ([place] Bowel ? Preparation Scale) with scores of: ? Right Colon = 3, Transverse Colon = ? 3 and Left Colon = 3 (entire mucosa ? seen well with no residual ? staining, small fragments of stool ? or opaque liquid). The total BBPS ? score equals 9. The terminal ileum, ? ileocecal valve, appendiceal ? orifice, and rectum were ? photographed. Scope withdrawal time ? was 12 minutes. ? Findings: ? Hemorrhoids were found on perianal exam. ? Three sessile polyps were found in the proximal ? transverse colon and proximal ascending colon. The ? polyps were 6 to 8 mm in size. These polyps were ? removed with a cold snare. Resection and retrieval ? were complete. ? The terminal ileum appeared normal. ? Scattered diverticula were found in the sigmoid ? colon, descending colon and ascending colon. There ? was no evidence of diverticular bleeding. ? Moderate Sedation: ? Moderate (conscious) sedation was administered by the ? endoscopy nurse and supervised by the endoscopist. ? The patient's oxygen saturation, heart rate, blood ? pressure and response to care were monitored. Impression: ?- Hemorrhoids found on perianal ? exam. ? - Three 6 to 8 mm polyps in the ? proximal transverse colon and in ? the proximal ascending colon, ? removed with a cold snare. Resected ? and retrieved. ? - The examined portion of the ileum ? was normal. ? - Diverticulosis in the sigmoid ? colon, in the descending colon and ? in the ascending colon. There was ? no evidence of diverticular ? bleeding. Recommendation: ?-No active bleeding but with ? left-sided diverticulosis and ? descending colon extravasation on ? CT, suspect diverticular bleed that ? has since stopped. At this time ? safe for discharge. Recommend ? resuming apixiban in 48 hours ? following polypectomy ? -Await pathology results to deced ? on follow up colonoscopy. ? Attending Participation: ? I was present and participated during the entire ? procedure, including non-[place] portions. ? Sanjuana Stuart MD 12/15/2021 10:49:38 AM This report has been signed electronically. Number of Addenda: 0 Note Initiated On: 12/15/2021 9:26 AM PROVATION 12/15/2021 9:26 AM EDT Unknown GENERAL SURGICAL ORD ERABLES PROVATION from Last 3 Months or Most Recently Relevant to Health Maintenance Advance Directives * Attempt Cardiopulmonary Resuscitation - Inpatient (Latest Code Status on File) Date Activated Date Inactivated Comments 12/14/2021 2:32 AM 12/15/2021 3:07 PM Question Answer Comments Code Status decision made by: Patient Care Teams Jacker Relationship Specialty Start Date End Date Pritesh Davis MD [address] [place], [place] [address] PCP - General Family Medicine 12/13/21
--- OUTSIDE RECORDS SUMMARY | 2024-03-16 20:27 | XMS_ITS | Referral Summary ---
Author Organization [facility] Address [address] [place] [address] Care Team Providers Care Medical Billing Assistant Name Role Phone Hugh Cortes MD Primary Care Provider [phone] Social History Tobacco Use Types Packs/Day Years Used Date Smoking Tobacco: Never Assessed Sex and Gender Information Value Date Recorded Sex Assigned at Not on file Gender Identity Not on file Sexual Orientation Not on file Plan of Treatment Not on file Care Teams Medical Billing Assistant Relationship Specialty Start Date End Date Hugh Cortes MD [address] [place], [place] [id number] PCP - General 05/19/16
--- OUTSIDE RECORDS SUMMARY | 2024-03-16 20:27 | XMS_ITS | Clinical Summary ---
Author Organization [facility] Address [address] [place] [address] Care Team Providers Care Manager Radiation Name Role Phone Hugh Cortes MD Primary Care Provider [phone] Social History Tobacco Use Types Packs/Day Years Used Date Smoking Tobacco: Never Assessed Sex and Gender Information Value Date Recorded Sex Assigned at Not on file Gender Identity Not on file Sexual Orientation Not on file Plan of Treatment Health Maintenance Due Date Last Done Comments RSV Immunization ( o r 60+ Years) (1 - 1-dose 60+ series) 2003 Fall Risk Screening 2008 COVID-19 Vaccine (2022- season) 2023 Care Teams Manager Radiation Relationship Specialty Start Date End Date Hugh Cortes MD [address] [place] [address] PCP - General 05/19/16
--- OUTSIDE RECORDS SUMMARY | 2024-03-16 20:27 | XMS_ITS | Encounter Summary ---
[place] [address] Care Team Providers Care Job Captain Name Role Phone Pritesh Davis MD Primary Care Provider [phone] Encounter Details Date Type Department Care Team (Late st Contact Info) Description 12/15/2021 [place] [id number] Rolando Akbar MD [facility] [place] [address] Social History Tobacco Use Types Packs/Day Years [...] on file documented as of this encounter Visit Diagnoses Not on filedocumented in this encounter Care Teams Job Captain Relationship Specialty Start Date End Date Pritesh Davis MD [address] [place] [address] PCP - General Family Medicine 12/13/21 documented as of this encounter
--- OUTSIDE RECORDS SUMMARY | 2024-03-16 20:27 | XMS_ITS | Encounter Summary ---
Author Organization [facility] Address [address] [place] [address] Care Team Providers Care Orthotic Finish Grinding Technician Name Role Phone Unknown, Provider Primary Care Provider Unava ilable Encounter Details Date Type Department Care Team (Late st Contact Info) Description 05/16/2016 Results Only [facility] [phone] Radha Weber, DO [address] [place] [address] Social History Tobacco Use Types Packs/Day Years Used Date Smoking Tobacco: Never Assessed Sex and Gender Information Value Date Recorded Sex Assigned at Not on file Gender Identity Not on file Sexual Orientation Not on file documented as of this encounter Plan of Treatment Not on file documented as of this encounter Procedures Procedure Name Priority Date/Time Associated Diagnosis Comments SURGICAL PATHOLOGY Routine 05/16/2016 6:20 EST documented in this encounter Results * SURGICAL PATHOLOGY (05/16/2016 6:20 EST) Pathology Report: SURGICAL PATHOLOGY REPORT Reports generated via electronic interface contain original data; however they are lacking the format of the original report. Caution should be taken when reading/interpret ing unformatted reports. Name: ? RIC MORTENSEN ? Accession #: ? [id number] ? : ? 1945 (Age: 71) ??M ? Collect Date: ? 05/16/2016 ? Location: ? [facility] ? Receive Date: ? 2016 ? Provider: RADHA WEBER DO Copy to: PARKER CARNES MD ? Final Pathologic Diagnosis: A. 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 B. COLON, SIGMOID, POLYP, BIOPSY: - ??Fragments of hyperplastic polyp. Document reviewed and electronically signed by: SUSANA FELDER MD Report ??Date: 05/19/2016 17:39 By the signature above, the attending physician certifies that he/she has personally conducted a gross and/or microscopic examination of the described specimens and rendered or confirmed the above diagnosis. Specimen(s) Received: A. ?Transverse colon polyp B. ? Sigmoid polyp Clinical History: Colorectal screening; clinical diagnosis code: ??Z12.11 Gross Description: A. ?Received in formalin labelled with proper patient identification (initials L, K) and transverse colon polyp are six pink-gonzáles tissues (0.1 x 0.1 x 0.1 cm to 0.2 x 0.3 x 0.3 cm). Entirely submitted in A1 and A2. B. ?Received in formalin labelled with proper patient identification (initials L, K) and sigmoid polyp are three pink-gonzáles tissues (0.2 x 0.2 x 0.2 cm, 0.3 x 0.3 x 0.3 cm and 0.3 x 0.3 x 0.3 cm). Entirely submitted in B1. Nica Mandujano 05/19/2016 9:00 AM End of Report [facility] 05/16/2016 6:20 EST 2016 6:20 EST Radha Weber DO PATHOLOGY ORDERABLES [facility] [address] [place] [address] documented in this encounter Visit Diagnoses Not on filedocumented in this encounter Care Teams Orthotic Finish Grinding Technician Relationship Specialty Start Date End Date Unknown, Provider, PCP - General 03/24/15 05/18/16 documented as of this encounter
--- OUTSIDE RECORDS SUMMARY | 2024-03-16 20:27 | XMS_ITS | Encounter Summary ---
Author Organization [facility] Address [address] [place] [address] Care Team Providers Care Studio Operation Engineer Name Role Phone Hugh Cortes MD Primary Care Provider [phone] Encounter Details Date Type Department Care Team (Late st Contact Info) Description 12/31/2020 Lab Requisition [facility] - [facility] [address] [place] [address] Norma Mathew MD [address] [place] [address] [place] [address] Encounter for other general examination Social History Tobacco Use Types Packs/Day Years Used Date Smoking Tobacco: Never Assessed Sex and Gender Information Value Date Recorded Sex Assigned at Not on file Gender Identity Not on file Sexual Orientation Not on file documented as of this encounter Plan of Treatment Not on file documented as of this encounter Procedures Procedure Name Priority Date/Time Associated Diagnosis Comments SURGICAL PATHOLOGY Today 12/31/2020 8: 20 EDT Encounter for other general examination documented in this encounter Results * SURGICAL PATHOLOGY (12/31/2020 8:20 EDT) Note to Patient The following pathology results have been interpreted by your pathologist and may be available to you before your health provider has had the opportunity to review them. Please allow time for your provider to receive these results and explore management options, if applicable. 01/03/2021 9:25 EDT [facility] Final Diagnosis A. RECTUM, POLYPS X8, BIOPSIES: - Fragments of hyperplastic polyp(s). B. COLON, CECUM, 2 POLYPS, BIOPSIES: - Fragments of tubular adenoma(s). C. TERMINAL ILEUM, POLYP, BIOPSY: - Ileal mucosa with prominent lymphoid aggregate. D. COLON, ASCENDING, POLYP, BIOPSY: - Tubular adenoma. E. COLON, SIGMOID, POLYP X4, BIOPSIES: - Fragments of hyperplastic polyp(s). 01/03/2021 9:25 [facility] Attestation By the signature below, the attending physician certifies that they have 1) personally conducted a gross and/or microscopic examination of the described specimen(s), and/or personally interpreted the results of laboratory testing of the described specimen(s), and 2) personally rendered or confirmed the above diagnosis. 01/03/2021 9:25 [facility] at 0925 Clinical History History of polyps 01/03/2021 9:25 [facility] Gross Description A. Received in formalin labelled with proper patient identification (initials L, K) and rectal polyps x8 are two white to gonzáles tissues (0.6 x 0.3 x 0.2 cm and 0.4 x 0.4 x 0.2 cm). Entirely submitted in A1. B. Received in formalin labelled with proper patient identification (initials L, K) and 2 cecal polyps are five a gonzáles-white focally brown speckled tissues (0.4 x 0.2 x 0.1 cm to 0.2 x 0.2 x 0.1 cm). Entirely submitted in B1. C. Received in formalin labelled with proper patient identification (initials L, K) and terminal ileum polyp is a pale gonzáles tissue (0.3 x 0.2 x 0.2 cm). Submitted intact in C1. D. Received in formalin labelled with proper patient identification (initials L, K) and ascending colon polyp are two pale gonzáles-white tissues (0.5 x 0.3 x 0.1 cm and 0.4 x 0.2 x 0.1 cm). Entirely submitted in D1. E. Received in formalin labelled with proper patient identification (initials L, K) and sigmoid polyps x4 are five pale gonzáles focally brown speckled tissues (0.5 x 0.3 x 0.2 cm to 0.2 x 0.2 by less than 0.1 cm). Entirely submitted in Malorie. Lewis Olson 01/01/2021 8:23 01/03/2021 9:25 EDT [facility] Performing Lab [facility] 01/03/2021 9:25 EDT [facility] Scanned Images 01/03/2021 9:25 EDT [facility] Tissue SPECIMEN FROM RECTUM / Unknown 12/31/2020 8:20 EDT 12/31/2020 15:55 EDT Tissue specimen (specimen) POLYP OF COLON / Unknown 12/31/2020 8:20 EDT 12/31/2020 15:55 EDT Tissue specimen (specimen) STRUCTURE OF SMALL INTESTINE / Unknown 12/31/2020 8:20 EDT 12/31/2020 15:55 EDT Tissue specimen (specimen) POLYP OF COLON / Unknown 12/31/2020 8:20 EDT 12/31/2020 15:55 EDT Tissue specimen (specimen) POLYP OF COLON / Unknown 12/31/2020 8:20 EDT 12/31/2020 15:55 EDT Norma Mathew MD PATHOLOGY ORDERA BLES [facility] [address] [place] [address] documented in this encounter Visit Diagnoses Diagnosis Encounter for other general examination documented in this encounter Care Teams Studio Operation Engineer Relationship Specialty Start Date End Date Hugh Cortes MD [address] [place] [address] PCP - General 05/19/16 documented as of this encounter
--- OUTSIDE RECORDS SUMMARY | 2024-03-16 20:27 | XMS_ITS | Encounter Summary ---
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 Name Role Phone Pritesh Davis MD Primary Care Provider [phone] Reason for Visit * Reason Comments Rectal Bleeding * Auth/Cert Specialty Diagnoses / Procedures Referred By Contac t Referred To Contact Diagnoses Hematochezia Taran Vivar MD [facility] [address] [facility] Referral ID Status Reason Start Date Expiration Date Visits Re quested Visits Authorized [id number] 1 1 Encounter Details Date Type Department Care Team (Late st Contact Info) Description 12/15/2021 Surgery [place] [address] Sanjuana Stuart MD [facility] [place] [address] COLONOSCOPY, POLYPECTOMY, REMOVAL LESION BY SNARE (WRVU 4.57) Social History Tobacco Use Types Packs/Day Years [...] Mass Index 27.4 12/15/2021 11:00 AM EDT documented in this encounter Discharge Summaries * Angel Barker MD - 12/15/2021 1:01 PM EDT Discharge Summary Patient Name: Ric Loyola Patient Age: 76 y.o. Language: New Zealander Race: White Ethnicity: Not nor Admit date: 12/13/2021 Discharge date and time: 12/15/2021 Attending Physician: Dr. Angel Barker Discharge Physician: Dr. Angel Barker Follow-up Recommendations for Providers: -Please note lower GI bleeding in setting of diverticuli and systemic anticoagulation -Consider risk/benefits of anticoagulation if GI bleeding were to be more persistent Inpatient Provider Contact Information: For questions regarding this document or issues relating to this hospitalization on the Medical Service, please contact your inpatient physician through the [facility] Blood Bank Technician . Issues afterhours and on weekends will be handled by the Hospitalist staff on-call. Discharge Diagnoses (Hospital Problems) and Secondary Diagnoses (Chronic Problems): Active Hospital Problems Diagnosis ??? Hematochezia Resolved Hospital Problems No resolved problems to display. Active Non-Hospital Problems Diagnosis ??? Persistent atrial fibrillation ??? Coronary artery disease ??? Hyperlipidemia Operations/Major Procedures: Operations: Procedure(s): COLONOSCOPY, POLYPECTOMY, REMOVAL LESION BY SNARE (WRVU 4.67) 12/15/2021 Other Major Procedures: History of Presentation: 76 yo M with PMH of paroxysmal Afib on Apixaban, CAD s/p VA with stent to RCA, ischemic cardiomyopathy, HLD, rectal polyps, and ?divederticulosis who presented to the ER with BRBPR. ?? Patient was in his usual states of health until later this evening when he had multiple episodes ofbloody bowel movements prompting him to come to the ED for evaluation. Denies any associated nausea, vomiting, abdominal pain, bowel or urinary habit changes. Denies history of hemorrhoids or anal fissures. Denies any fevers, chills, chest pain, shortness of breath, cough, lightheadedness, presyncope or syncope. Denies any trauma or falls. Patient is on anticoagulation; takes Apixaban for Afib - last dose was yesterday morning. Reports that he quit smoking since he had VA in 1999. Drinks about 2 beers per week. Denies illicit drug use. ?? ED course: Patient was hemodynamically stable. CBC revealed normal H and H. BMP with elevated BUN to 25. LFT unremarkable. PT elevated to 14.1. EKG showed normal sinus rhythm. CT abdomen and pelvis remarkable for active arterial extravasation of contrast into the lumen of the distal descending colon. IR recommended monitoring for now given hemodynamic stability. Hospital Course: #Lower GI bleeding, likely diverticular bleeding Due to history of paroxysmal A. fib, patient is currently on apixaban. This was held on presentation. Initial CT abdomen pelvis GI bleed protocol showed active arterial extravasation of contrast intothe lumen of the distal descending colon. Initially, both GI and interventional radiology were consulted. As patient was hemodynamically stable, no further intervention by IR was pursued. Patient had colonoscopy on 12/15 with perianal hemorrhoids seen, and descending colon diverticulosis seen on colonoscopy. It was thought that patient had a diverticular bleed that has since stopped. Gastroenterology has recommended resuming apixaban in 48 hours following polypectomy as well. Patient's hemoglobin remains relatively stable while he was in inpatient. Presenting at 14, discharge hemoglobin of 12.9. Vital Signs at Discharge: BP: 132/72, Heart Rate: 66, Temp: 36.6 ??C (97.9 ??F), Resp: 18, BMI (Calculated): 27.4 Height: 193 cm (6' 4) (12/15/21 1100) Weight: 102.1 kg (225 lb 1.4 oz) (12/15/21 1100) Functional and Cognitive Status: Good, no issues Important Studies and Lab Data: Labs: Last 3 wbc, hgb, hct plt Recent Labs 12/15/21 0646 12/15/21 0133 12/14/21 1818 12/14/21 1243 12/14/21 0348 12/14/21 0150 12/13/21 2349 WBC -- -- -- -- 6.0 -- 6.5 HGB 12.9* 13.2* 13.5* < > 14.5 < > 15.0 HCT 38.4* 39.1* 40.5 < > 42.5 < > 45.5 PLATELET -- -- -- -- 181 -- 194 < > = values in this interval not displayed. Last 3 Lytes Recent Labs 12/15/21 0133 12/13/21 2349 NA 140 142 K 3.7 4.1 CL 106 105 CO2 22 23 BUN 13 25* CREATININE 0.99 1.23 Last 3 LFTs Recent Labs 12/13/21 2349 AST 29 ALT 32 ALKPHOS 98 BILITOT 0.6 Studies: Colonoscopy, 12/15 Impression: ?- Hemorrhoids found on perianal ?exam. ?- Three 6 to 8 mm polyps in the ?proximal transverse colon and in ?the proximal ascending colon, ?removed with a cold snare. Resected ?and retrieved. ?- The examined portion of the ileum ?was normal. ?- Diverticulosis in the sigmoid ?colon, in the descending colon and ?in the ascending colon. There was ?no evidence of diverticular ?bleeding. Recommendation: ?-No active bleeding but with ?left-sided diverticulosis and ?descending colon extravasation on ?CT, suspect diverticular bleed that ?has since stopped. At this time ?safe for discharge. Recommend ?resuming apixiban in 48 hours ?following polypectomy ?-Await pathology results to deced ?on follow up colonoscopy. CT Abd/Pelvis, 8/6 IMPRESSION Active arterial extravasation of contrast into the lumen of the distal descending colon. Pending Studies and Lab Data: Colonic polyps pathology Discharge Conditions/Prognosis: Good prognosis Discharge to: Home Updated Allergies/ADRs: No Known Allergies Immunizations Given this Hospitalization: There is no immunization history on file for this patient. Discharge Medications: Your Medications Continued medications, unchanged Dose Details apixaban 5 mg Tab Commonly known as: Eliquis Take 1 tablet by mouth 2 times daily for 2 days. 5 mg Quantity: 4 tablet Refills: 0 atorvastatin 20 mg Tab Commonly known as: Lipitor Take 20 mg by mouth daily. 20 mg Refills: 0 dilTIAZem CD 180 mg Cp24 Commonly known as: Cardizem CD Take 180 mg by mouth daily. 180 mg Refills: 0 metoprolol succinate XL 50 mg Tablet sr Commonly known as: Toprol-XL Take 50 mg by mouth daily. 50 mg Refills: 0 multivitamin Tab Commonly known as: THERAGRAN Take 1 tablet by mouth nightly. 1 tablet Refills: 0 nitroGLYcerin 0.4 mg Subl Commonly known as: Nitrostat 0.4mg, Sublingual, Q 5 min prn Refills: 0 Smoking Status at Discharge: Social History Tobacco Use Smoking Status Former Smoker ??? Quit date: 03/14/2000 ??? Years since quittin.7 Smokeless Tobacco Never Used Instructions Given to Patient at Discharge: Patient Instructions Instruction after leaving the hospital Why you were hospitalized: You were hospitalized for lower GI bleeding, possibly from a diverticula. It has since stopped bleeding with holding of your eliquis. We recommend that you restart Eliquis on 12/17. Call your doctor or seek medical attention if you develop the following: chest pain, shortness of breath, passing out, feeling dizzy upon standing, passing out, diarrhea, constipation lasting longer than 2 days, fevers (temperature over 100.3), chills, abdominal pain, vomiting, difficulty or discomfort when urinating, bloody or black bowel movements, or any other acute or concerning symptom. Activity level: No restrictions Diet: No restrictions Driving: No restrictions, as before admission Shower/Bath: No restrictions Wound Care: No restrictions Home Oxygen therapy: None Follow-Up Appointments None Your Inpatient Doctor(s) at [facility]: Dr. Angel Barker General Instructions None Discharge References/Attachments GI Bleeding: Lower (New Zealander) documented in this encounter Discharge Instructions * Patient Instructions* Angel Barker MD - 12/15/2021 11:28 AM EDT Instruction after leaving the hospital Why you were hospitalized: You were hospitalized for lower GI bleeding, possibly from a diverticula. It has since stopped bleeding with holding of your eliquis. We recommend that you restart Eliquis on 12/17. Call your doctor or seek medical attention if you develop the following: chest pain, shortness of breath, passing out, feeling dizzy upon standing, passing out, diarrhea, constipation lasting longer than 2 days, fevers (temperature over 100.3), chills, abdominal pain, vomiting, difficulty or discomfort when urinating, bloody or black bowel movements, or any other acute or concerning symptom. Activity level: No restrictions Diet: No restrictions Driving: No restrictions, as before admission Shower/Bath: No restrictions Wound Care: No restrictions Home Oxygen therapy: None Follow-Up Appointments None Your Inpatient Doctor(s) at [facility]: Dr. Angel Barker * Attachments The following attachments cannot be sent through Care Everywhere. * GI Bleeding: Lower ([place] Zealander) documented in this encounter Medications at Time of Discharge Medication Sig Dispensed Refills Start Date End Date multivitamin (THERAGRAN) Tablet Take 1 tablet by mouth nightly. atorvastatin (LIPITOR) 20 mg Tablet Take 20 mg by mouth daily. meTOPROLOL succinate (TOPROL-XL) 50 mg Tablet Sustained Release 24 hr Take 50 mg by mouth daily. DILTiazem (CARDIZEM CD) 180 mg Capsule, Sust. Release 24 hr Take 180 mg by mouth daily. nitroGLYcerin (NITROSTAT) 0.4 mg SL tablet 0.4mg, Sublingual, Q 5 min prn 03/17/2000 apixaban (Eliquis) 5 mg Tablet Take 1 tablet by mouth 2 times daily for 2 days. 4 tablet 12/15/2021 12/17/2021 documented as of this encounter Progress Notes * Angel aBrker MD - 12/15/2021 1:01 PM EDT Hospital Medicine - Attending Day of Discharge Documentation Discharge diagnosis Active Hospital Problems Diagnosis ??? Hematochezia Resolved Hospital Problems No resolved problems to display. Secondary Issues Active Non-Hospital Problems Diagnosis ??? Persistent atrial fibrillation ??? Coronary artery disease ??? Hyperlipidemia I have personally seen and examined the patient and they are ready for discharge. I was involved in the final examination of the patient, discussion of the hospital stay, instructions for continuing care to all relevant caregivers, and preparation of discharge records, prescriptions and referral forms. Plans ? Discharge to home ? Follow-up scheduled with none ? Please see the Discharge Summary for complete details of any medication changes and additional plans. * Nati Lerma RN - 12/15/2021 1:00 PM EDT AxO4 with VSS on RA. Patient up and ambulating independently in the room as well as on the unit. Voiding adequately with no difficulties. Colonoscopy done this morning. D/C ordered placed and PIVs taken out per protocol. Patients discharge instructions gone through with both patient and pt daughterverbalizing understanding. Patient brought down to a private vehicle via wheelchair. * Rolando Akbar MD - 12/14/2021 10:56 AM EDT Interventional Radiology - Brief Consult Note Patient Name: Ric Loyola : [id number] MR#: [id number] Ric Loyola is a 76 yo male with multiple episodes of hematochezia since 7pm yesterday. We received a call from the ED to evaluate for arteriogram/embolization due to CTA showing arterial extravasation. He has been HDS and without abdominal pain. Hgb within normal limits. Overnight events: patient states he's had 3 additional bloody BMs this AM. No abdominal pain, no other symptoms. Physical Exam Vitals and nursing note reviewed. Constitutional: General: He is not in acute distress. Appearance: He is well-developed. He is not diaphoretic. HENT: Head: Normocephalic and atraumatic. Neck: Trachea: No tracheal deviation. Cardiovascular: Rate and Rhythm: Normal rate and regular rhythm. Pulmonary: Breath sounds: Normal breath sounds. Abdominal: General: There is no distension. Palpations: Abdomen is soft. Tenderness: There is no abdominal tenderness. There is no guarding or rebound. Neurological: Mental Status: He is alert and oriented to person, place, and time. Lab Results Component Value Date/Time WBC 6.0 12/14/2021 03:48 AM WBC 6.5 12/13/2021 11:49 PM HGB 14.5 12/14/2021 03:48 AM HGB 14.0 12/14/2021 01:50 AM HGB 15.0 12/13/2021 11:49 PM PLATELET 181 12/14/2021 03:48 AM PLATELET 194 12/13/2021 11:49 PM INR 1.2 12/13/2021 11:49 PM ALKPHOS 98 12/13/2021 11:49 PM BILITOT 0.6 12/13/2021 11:49 PM Assessment/Plan: 76 yo male with PMH of PAF on apixaban, presenting with 6 episodes of hematocheziasince 7pm. Last dose of eliquis 8/5 AM. He is hemodynamically stable with Hgb within normal limits.He is HDS and has no abdominal pain. CTA overnight demonstrated a focal diverticular bleed. At this time there is no indication for urgent IR intervention. We will plan to follow peripherally. Recommend continue trending H/H and holding home apixaban. If he shows signs of hemodynamic instability and requires ongoing transfusions, please reconsult IR. Plan discussed with Dr. Luu. Thank you for allowing us to participate in the care of this patient. Rolando Akbar MD Interventional & Diagnostic Radiology IR Team Pager: [phone] Personal Pager [phone] * Madalyn Childers RN - 12/14/2021 5:22 AM EDT Ric arrived on 4 from the ED via stretcher @0402. Ambulated form doorway to bed with SBA, gait is steady. Denied having abdominal pain. This RN oriented patient to staff, to room and to use of call krause system. NPO advised per orders. Call krause placed within reach. documented in this encounter H&P Notes * Milady Hernandez - 12/15/2021 10:03 AM EDT Gastroenterology and Hepatology Pre-Procedure History and Physical Exam Procedure: Colonoscopy: Indication: Hematochezia Patient Active Problem List Diagnosis Code ??? Persistent atrial fibrillation I48.19 ??? Coronary artery disease I25.10 ??? Hyperlipidemia E78.5 ??? Hematochezia K92.1 EXAM: HEENT: Airway examined, oropharynx clear Mallampati Score: I (soft palate, uvula, fauces, tonsillar pillars visible) LUNGS: Clear to auscultation HEART: Regular rate and rhythm, normal S1, S2 ABDOMEN: Normal bowel sounds, soft, non tender, non distended A/P Proceed with the planned endoscopic procedure. ASA 3 - Patient with moderate systemic disease with functional limitations Sedation Plan: moderate (conscious sedation) Risks and benefits of the procedure explained to the patient. Consent signed. Please see separate consult note for further details. * Taran Vivar MD - 12/14/2021 1:54 AM EDT Inpatient Hospital Medicine - Admission Note Problem List: There are no hospital problems to display for this patient. Active Non-Hospital Problems Diagnosis ??? Persistent atrial fibrillation ??? Coronary artery disease ??? Hyperlipidemia History of Present Illness: 76 yo M with PMH of paroxysmal Afib on Apixaban, CAD s/p VA with stent to RCA, ischemic cardiomyopathy, HLD, rectal polyps, and ?divederticulosis who presented to the ER with BRBPR. Patient was in his usual states of health until later this evening when he had multiple episodes ofbloody bowel movements prompting him to come to the ED for evaluation. Denies any associated nausea, vomiting, abdominal pain, bowel or urinary habit changes. Denies history of hemorrhoids or anal fissures. Denies any fevers, chills, chest pain, shortness of breath, cough, lightheadedness, presyncope or syncope. Denies any trauma or falls. Patient is on anticoagulation; takes Apixaban for Afib - last dose was yesterday morning. Reports that he quit smoking since he had VA in 1999. Drinks about 2 beers per week. Denies illicit drug use. Review of Systems: Negative except as noted above ED course: Patient was hemodynamically stable. CBC revealed normal H and H. BMP with elevated BUN to 25. LFT unremarkable. PT elevated to 14.1. EKG showed normal sinus rhythm. CT abdomen and pelvis remarkable for active arterial extravasation of contrast into the lumen of the distal descending colon. IR recommended monitoring for now given hemodynamic stability. Imaging: CT Abdomen & Pelvis wwo Contrast IMPRESSION Active arterial extravasation of contrast into the lumen of the distal descending colon. Past Medical and Surgical History: Afib on Apixaban, CAD s/p VA with stent to RCA, ischemic cardiomyopathy, HLD, and rectal polyps Allergies: No Known Allergies Family History: No family history on file. Social History and Habits: Social History Socioeconomic History ??? Marital status: Spouse name: Not on file ??? Number of children: Not on file ??? Years of education: Not on file ??? Highest education level: Not on file Occupational History ??? Not on file Tobacco Use ??? Smoking status: Former Smoker Quit date: 03/14/2000 Years since quittin.7 ??? Smokeless tobacco: Never Used Substance and Sexual Activity ??? Alcohol use: Not on file ??? Drug use: Not on file ??? Sexual activity: Not on file Other Topics Concern ??? Not on file Social History Narrative Lives with in [place], [place] Retired. Social Determinants of Health Financial Resource Strain: Not on file Food Insecurity: Not on file Transportation Needs: Not on file Physical Activity: Not on file Housing Stability: Not on file Immunizations: There is no immunization history on file for this patient. Physical Exam: Last Set of Vitals and range of vitals over past 24 hours: Last value Range last 24 hrs Temperature Temp: 36.6 ??C (97.8 ??F) Temp: [36.6 ??C (97.8 ??F)] Heart Rate Heart Rate: 69 Heart Rate: [66-69] Blood Pressure BP: 151/89 BP: (146-154)/(86-89) Respiratory Rate Resp: 23 Resp: [18-23] SpO2 SpO2: 95 % SpO2: [95 %-97 %] Body mass index is 27.75 kg/m??. Physical Exam Constitutional: Appearance: Normal appearance. HENT: Head: Normocephalic and atraumatic. Mouth/Throat: Pharynx: Oropharynx is clear. Eyes: Conjunctiva/sclera: Conjunctivae normal. Cardiovascular: Rate and Rhythm: Normal rate and regular rhythm. Heart sounds: No murmur heard. Pulmonary: Effort: No respiratory distress. Breath sounds: No wheezing. Abdominal: General: There is no distension. Tenderness: There is no abdominal tenderness. Musculoskeletal: Right lower leg: No edema. Left lower leg: No edema. Skin: Coloration: Skin is not jaundiced or pale. Neurological: General: No focal deficit present. Mental Status: He is alert. Cranial Nerves: No cranial nerve deficit. Sensory: No sensory deficit. Psychiatric: Mood and Affect: Mood normal. Behavior: Behavior is cooperative. Laboratory (Last 24 Hours): Recent Results (from the past 24 hour(s)) ABO/Rh Typing Result Value Ref Range ABORh Type AB Neg Antibody screen Result Value Ref Range Ab Screen Interp Negative Expires at 2359 on: 12/16/2021 ABORH Recheck Status Result Value Ref Range ABORH Recheck Order Order Placed Type and Screen Validity Result Value Ref Range T&S only valid at [facility] Hosp Prothrombin Time Result Value Ref Range PT 14.1 (H) 9.4 - 12.5 sec INR 1.2 Comprehensive metabolic panel (non-fasting) Result Value Ref Range Glucose Lvl 105 65 - 199 mg/dL BUN 25 (H) 10 - 20 mg/dL Creatinine 1.23 0.80 - 1.50 mg/dL Sodium 142 135 - 145 mmol/L Potassium 4.1 3.5 - 5.0 mmol/L Chloride 105 98 - 107 mmol/L CO2 23 22 - 31 mmol/L Anion Gap 14 5 - 15 mmol/L Calcium 9.1 8.5 - 10.5 mg/dL Total Protein 7.2 6.1 - 8.0 g/dL Albumin 4.4 3.2 - 5.2 g/dL AST 29 0 - 39 unit/L ALT 32 0 - 55 unit/L Alk Phos 98 40 - 130 unit/L Total Bilirubin 0.6 0.2 - 1.3 mg/dL Estimated GFR 60 >=60 mL/min/1.73 m?? Hemogram Result Value Ref Range WBC 6.5 4.0 - 9.5 x10(3)/mcL RBC 4.89 4.58 - 5.54 x10(6)/mcL Hemoglobin 15.0 13.7 - 16.5 g/dL Hematocrit 45.5 40.5 - 48.5 % MCV 93.0 82.9 - 93.1 fL MCH 30.7 27.5 - 32.1 pg MCHC 33.0 32.0 - 35.7 g/dL Platelets 194 145 - 357 x10(3)/mcL RDWSD 43.4 36.0 - 45.0 fL RDWCV 12.7 11.4 - 13.8 % MPV 9.4 7.6 - 12.9 fL nRBC % Auto 0.0 % nRBC Abs Auto 0.000 0.000 - 0.000 x10(3)/mcL Differential, Automated Result Value Ref Range Neutrophils % 68.3 % Neutr Abs (ANC) 4.42 1.70 - 6.10 x10(3)/mcL Lymphocytes % 20.4 % Lymphocytes Abs 1.3 0.9 - 3.2 x10(3)/mcL Monocytes % 8.6 % Monocyte Abs 0.6 0.3 - 0.9 x10(3)/mcL Eosinophils % 1.5 % Eosinophils Abs 0.1 0.0 - 0.4 x10(3)/mcL Basophils % 0.9 % Basophils Abs 0.1 0.0 - 0.1 x10(3)/mcL Immature Gran % 0.30 % Kim Gran Abs 0.02 0.00 - 0.04 x10(3)/mcL Assessment and plan: 76 yo M with PMH of paroxysmal Afib on Apixaban, CAD s/p VA with stent to RCA, ischemic cardiomyopathy, HLD, rectal polyps, and ?divederticulosis who presented to the ER with BRBPR Patient remained hemodynamically stable since presentation. CBC revealed normal H and H. BMP with elevated BUN to 25. LFT unremarkable. PT elevated to 14.1. EKG showed normal sinus rhythm. CT abdomenand pelvis remarkable for active arterial extravasation of contrast into the lumen of the distal descending colon. IR recommended monitoring for now given hemodynamic stability. #GI bleed #Active arterial extravasation in the descending colon -Telemetry monitoring -Maintain active type and screen and 2 large bore IV access -H&H Q6H -Transfuse if Hgb<7 -LR @125 cc/h -PPI IV BID for now though upper GI bleed less likely at this point -Hold home apixaban -NPO for now -GI consult, appreciate input -Consult IR for possible angiography and embolization if patient shows hemodynamic instability and requires ongoing transfusions #VA s/p PCI #History of Afib -Hold home apixaban, nitroglycerin, diltiazem and metoprolol for now #Hyperlipidemia -Continue home atorvastatin #Routine -IV access: PIV -DVT PPx: SCDs. Hold home apixaban for now -GI PPx: PPI -Code status: Full code A copy of this document will be sent to the patient's Primary Care Physician and/or Referring Physician. Taran Vivar MD 12/14/2021 * Rolando Akbar MD - 12/14/2021 1:25 AM EDT Images from the original note were not included. INTERVENTIONAL RADIOLOGY Interventional Radiology - Brief Consult Note Patient Name: Ric Loyola : [id number] MR#: [id number] I received a call from the ED resident, Aston Zimmerman MD at 0120am. Ric Loyola is a 76 yo male with 3 episodes of hematochezia since 7pm. Last dose of eliquis 8/5 AM. He is hemodynamically stable with Hgb of 15.0, INR of 1.2 and no significant abdominal pain. CTA demonstrates arterial extravasation in descending colon. At this time there is no indication forurgent IR intervention. Recommend trend H/H, and conservative management with apixaban reversal if indicated with hx of PAF. Plan discussed with Dr. Luu. Plan: Trend H/H 2 large PIV Hold AC Consider GI consultation If he shows signs of hemodynamic instability and requires ongoing transfusions we would consider angiography and embolization. Presenting Diagnosis/ Complaint: Ric Loyola is a 76 y.o. male with bright red blood per rectum. He noticed blood mixed with stool at 7pm. Since then he has had 2 more episodes of Past Medical/Surgical History: Patient Active Problem List Diagnosis Code ??? Persistent atrial fibrillation I48.19 ??? Coronary artery disease I25.10 ??? Hyperlipidemia E78.5 has no past medical history on file. has no past surgical history on file. Medications: Current Outpatient Medications Medication Instructions ??? apixaban (ELIQUIS) 5 mg, Oral, 2 TIMES DAILY ??? atorvastatin (LIPITOR) 20 mg, Oral, DAILY ??? dilTIAZem CD (CARDIZEM CD) 180 mg, Oral, DAILY ??? metoprolol succinate XL (TOPROL-XL) 50 mg, Oral, 2 TIMES DAILY ??? nitroGLYcerin (NITROSTAT) 0.4 mg SL tablet 0.4mg, Sublingual, Q 5 min prn Allergies: Patient has no known allergies. Social History and Habits: see chart Social History Tobacco Use ??? Smoking status: Former Smoker Quit date: 03/14/2000 Years since quittin.7 ??? Smokeless tobacco: Never Used Significant Family History: No family history on file. Pertinent ROS: as per HPI Labs: Lab Results Component Value Date WBC 6.5 12/13/2021 HGB 15.0 12/13/2021 HCT 45.5 12/13/2021 PLATELET 194 12/13/2021 INR 1.2 12/13/2021 BUN 25 (H) 12/13/2021 CREATININE 1.23 12/13/2021 ALKPHOS 98 12/13/2021 AST 29 12/13/2021 ALBUMIN 4.4 12/13/2021 BILITOT 0.6 12/13/2021 ALT 32 12/13/2021 PROT 7.2 12/13/2021 K 4.1 12/13/2021 Imaging: CT CAP 12/14/21 Assessment/Plan: 76 y.o. male with 3 episodes of hematochezia since 7pm. Last dose of eliquis 8/5 AM. He is hemodynamically stable with Hgb of 15.0, INR of 1.2 and no significant abdominal pain. CTA demonstrates arterial extravasation in descending colon. At this time there is no indication for urgent IR intervention. Recommend trend H/H, and conservative management with apixaban reversal if indicated with hx of PAF. Plan discussed with Dr. Luu. Plan: Trend H/H 2 large PIV Hold AC Consider GI consultation If he shows signs of hemodynamic instability and requires ongoing transfusions we would consider angiography and embolization. Thank you for allowing us to participate in the care of this patient. Rolando Akbar MD Interventional & Diagnostic Radiology Pager [phone] 12/14/2021 documented in this encounter ED Notes * Elvia Lang RN - 12/14/2021 2:08 AM EDT 0200: Pt had BM that consistented of a moderate amount of bright/dark red stool in mostly liquid form. MD notified. Pt vitally stable and denies any dizziness or changes at this time. * Aston Zimmerman MD - 12/13/2021 11:26 PM EDT ED Resident Note HPI: Ric Loyola is a 76 y.o. male who presents to the Emergency Department with hematochezia for one day. Around 6:30 pm patient went to the bathroom and thought it felt different, he looked in thetoilet bowl and noticed blood mixed with stool. He then had two additional episodes of only blood when having a bowel movement. He reports that this has never happened before. He takes Eliquis for paroxysmal afib, and his last dose was this morning. Reports no nausea, vomiting, fevers, night sweats, chills, sob, headache, chest pain, abdominal pain, hematuria, or dysuria. No hematemesis, coffee ground emesis, or melena. He reports that his bowel movements have been normal up until the current presentation. Current Outpatient Medications Medication Instructions ??? apixaban (ELIQUIS) 5 mg, Oral, 2 TIMES DAILY ??? atorvastatin (LIPITOR) 20 mg, Oral, DAILY ??? dilTIAZem CD (CARDIZEM CD) 180 mg, Oral, DAILY ??? metoprolol succinate XL (TOPROL-XL) 50 mg, Oral, DAILY ??? multivitamin (THERAGRAN) Tablet 1 tablet, Oral, NIGHTLY ??? nitroGLYcerin (NITROSTAT) 0.4 mg SL tablet 0.4mg, Sublingual, Q 5 min prn Pt was seen under the supervision of an attending physician. Review of Systems Pertinent positives and negatives are included in the HPI, otherwise at least ten systems were reviewed and negative. Past Medical and Surgical Histories, Social History, Medications, Allergies were reviewed in the chart. Medical History: History of heart attack, 1999. Had a stent placed Paroxsymal Afib: for around 10 years. Takes Eliquis and diltiazem. Never has had a bleed before. Vitals: Patient Vitals for the past 24 hrs: Temp Pulse Resp BP SpO2 O2 Device 12/13/21 2335 -- 69 -- 146/88 -- -- 12/13/21 2336 36.6 ??C (97.8 ??F) -- 23 -- 97 % RA 12/13/21 2345 -- 66 18 154/86 96 % -- 12/14/21 0100 -- -- -- 151/89 -- -- 12/14/21 0145 -- 69 23 -- 95 % -- 12/14/21 0200 -- 69 17 143/85 95 % -- 12/14/21 0300 -- 63 18 142/79 94 % -- 12/14/21 0315 -- 62 16 118/82 -- -- Physical Exam Vitals reviewed. Constitutional: General: He is not in acute distress. Appearance: Normal appearance. He is not ill-appearing or diaphoretic. HENT: Head: Normocephalic and atraumatic. Nose: Nose normal. Mouth/Throat: Mouth: Mucous membranes are moist. Pharynx: Oropharynx is clear. No oropharyngeal exudate or posterior oropharyngeal erythema. Eyes: Extraocular Movements: Extraocular movements intact. Pupils: Pupils are equal, round, and reactive to light. Cardiovascular: Rate and Rhythm: Normal rate and regular rhythm. Pulses: Normal pulses. Heart sounds: Normal heart sounds. Pulmonary: Effort: Pulmonary effort is normal. Breath sounds: Normal breath sounds. Abdominal: General: Abdomen is flat. Palpations: Abdomen is soft. Tenderness: There is no abdominal tenderness. Genitourinary: Rectum: No mass, tenderness, anal fissure or external hemorrhoid. Comments: With blood clots on digital rectal exam. Skin: General: Skin is warm and dry. Capillary Refill: Capillary refill takes less than 2 seconds. Neurological: General: No focal deficit present. Mental Status: He is alert and oriented to person, place, and time. Psychiatric: Mood and Affect: Mood normal. ED Course: I have reviewed labs and imaging, images and available reports, and they are significant for: -Evaluated in the emergency department, stable -CTAP w/wo contrast for GI bleed ordered, found to have lower GI bleed with active arterial extravasation, proximal sigmoid. -Paged IR, GI and planned to admit to hospital medicine for further management. -IR, GI will see patient in the AM, Hospital Medicine will admit. -Repeat hemogram with one point drop From 15 to 14, will check again at 3:[address] Abdomen & Pelvis wwo Contrast (GI BLEED) Final Result Active arterial extravasation of contrast into the lumen of the distal descending colon. I Crow Camarena discussed these results with Dr. Toth on 12/14/2021 1:07 AM and verified that she understood these results. I have personally reviewed the image(s) and the resident's interpretation and agree with the findings, Otoniel Wolf MD at 12/14/2021 1:33 AM Thank you for letting us participate in the care of this patient. If you are a health care provider and have any questions regarding this report, please contact the number below. For patients who have questions please contact the health healthcare management that requested your imaging first. Electronically signed by: Otoniel Wolf MD, [facility] ([phone]), at 12/14/2021 1:33 AM ED Course as of 12/14/21 0350 Sat Dec 14, 2021 0118 Paged Hospital medicine to request admission 0119 After receiving call from Radiology regarding arterial bleed on CT scan, paged GI and IR for further evaluation/treatment 0128 IR Recommend cbc q4hr 0138 GI will see, recommend trending hemoglobin and will discuss colonoscopy in the AM. 0202 Patient with bloody bowel movement 0205 Interventional radiology will see in AM, reach out to IR if requiring transfusion or becoming hemodynamically unstable Procedures None performed Assessment and Plan: 76 y.o. male with history of paroxysmal Afib, on Eliquis who presents following multiple episodes of hematochezia over the past evening. On physical exam with no abdominal pain, blood on CONCHITA, otherwise normal exam. Vitals stable. With Hgb 15 initially, dropped to 14 after being in the ED for a few hours. He has a history of diverticulosis observed on colonoscopy performed at outside facility. We do not think this is an upper GI bleed given no coffee ground emesis. He does not have a history of drinking and no signs of cirrhosis on exam, so this is not likely secondary to rupture varices. We were initially concerned for a lower GI bleed and he was found to have an arterial bleed on his CTAP w/wo contrast. While in the emergency department he remained stable, with no tachycardia, hypotension, or changes in physical exam. We consulted IR, GI, and admitted him to hospital medicine. The visit findings, diagnosis, and care plan were discussed with the patient. Aston Zimmerman MD Resident 12/14/21 0402 Associated attestation - Milind Jones MD - 12/21/2021 10:49 PM EDT ED ATTENDING ATTESTATION The patient was seen in conjunction with the resident physician. I have independently performed thekey portions of the history and physical exam. I have personally reviewed nursing notes, vital signs, and diagnostic studies including labs, imaging studies and EKGs. I have discussed the details of the case with the resident and agree with the assessment and plan as described in the resident's note, unless stated otherwise in my separate note. Did this case involve critical care? No documented in this encounter Miscellaneous Notes * Plan of Care - Madalyn Childers RN - 12/15/2021 4:01 AM EDT OUTCOME EVALUATION NOTE: OUTCOME SUMMARY: Ric received Golytely bowel prep overnight which he tolerated fairly. Patient had liquid BMs. Denied having pain. Voiding in adequate amounts. On q6hr Hemogram & hematocrit. NPO at 0500 advised. PLAN MOVING FORWARD: Keep NPO for 0600 colonoscopy. Serial Hgb/ Hct q6hrs. INDIVIDUALIZED FALL PREVENTION INTERVENTIONS: Patient-specific fall risk factors per assessment: [current deficits]: Unfamiliar environment, IV tubing/IV pole Assistance [level of assistance required for transfers and ambulation]: Independent post set-up Supervision [direct monitoring required during toileting and ADLs]: Eyes on/ independent Surveillance [continuous indirect monitoring]: Purposeful rounding, call krause within reach Patient-specific fall prevention interventions for sensory deficits provided, if applicable: YES. Light adjusted for tasks/safety CPG GOAL OUTCOME EVALUATION: * Plan of Care - Bharti Guardado RN - 12/14/2021 7:49 PM EDT OUTCOME EVALUATION NOTE: OUTCOME SUMMARY: Pt A&Ox4. VSS on RA. NSR on telemetry. Pt denies pain, SOB, N/V. Tolerating clear liquid diet. Pt ambulated to the bathroom independently. Pt had multiple bright red/dark red with clots BMs. notified. Voiding in the BR, adequate amount. @1800, started bowel prep. Will continue to monitor. PLAN MOVING FORWARD: Monitor VS, I/Os Continue bowel prep NPO at 0500 tomorrow Colonoscopy tomorrow INDIVIDUALIZED FALL PREVENTION INTERVENTIONS: ?? Patient-specific fall risk factors per assessment: [current deficits]:?Generalized weakness, lines/tubings ?? Assistance [level of assistance required for transfers and ambulation]:?Standby ?? Supervision [direct monitoring required during toileting and ADLs]:?Arms reach ?? Surveillance [continuous indirect monitoring]:?Purposeful rounding, masimo, telemetry, call bellwithin reach ?? Patient-specific fall prevention interventions for sensory deficits provided, if applicable:?[X]Yes, lighting adjusted for task/safety, environmental modification, non-skid socks ? CARE PLAN GOAL OUTCOME EVALUATION:??ongoing? * Consult Note - Sanjuana Stuart MD - 12/14/2021 7:32 AM EDT GASTROENTEROLOGY & HEPATOLOGY CONSULTATION Initial Consult Note Requesting Provider: Taran Vivar MD REASON FOR CONSULTATION Hematochezia HISTORY OF PRESENT ILLNESS Ric Loyola is a 76 y.o. M with PMH of pAF on apixaban, CAD s/p VA with stent to RCA, ischemic cardiomyopathy, HLD admitted with hematochezia. Patient reported multiple acute onset bloody bowel movements yesterday evening which prompted ED visit. He was previously feeling at his baseline, last dose of apixiban that morning. He denies abdominal pain, N/V/F/chills, no melena/hematemesis. No lightheadedness/syncope or fall. No NSAID use, drinks ~2 beers/week. Patient has no prior history GIB. He reports prior colonoscopy with diverticulosis; done at [facility] in 12/2020. No prior EGD. In the ED, Hb 15, BUN 25, LFTs wnl, INR 1.2. A CT A/P was obtained showing extravasation in distal descending colon. IR was consulted who recommended monitoring with serial H&H given clinical stability. Since admission, patient remains HDS, afebrile. Hb 15-->14.5. Pl 181. Continues to pass some blood overnight, no stool. ROS: 10 systems reviewed and positive for those in HPI, otherwise negative PAST MEDICAL/SURGICAL HISTORY: No past medical history on file. MEDICATIONS ??? atorvastatin 20 mg Oral QPM ??? sodium chloride 0.9 % (flush) 5 mL Intravenous BID ??? pantoprazole 40 mg Intravenous BID ??? sodium chloride 0.9 % (flush) 5 mL Intravenous BID ??? lactated Ringers 125 mL/hr (12/14/21 0247) sodium chloride 0.9 % (flush), lidocaine, sodium chloride 0.9 % (flush) ALLERGIES No Known Allergies SOCIAL HISTORY Social History Socioeconomic History ??? Marital status: Spouse name: Not on file ??? Number of children: Not on file ??? Years of education: Not on file ??? Highest education level: Not on file Occupational History ??? Not on file Tobacco Use ??? Smoking status: Former Smoker Quit date: 03/14/2000 Years since quittin.7 ??? Smokeless tobacco: Never Used Substance and Sexual Activity ??? Alcohol use: Not on file ??? Drug use: Not on file ??? Sexual activity: Not on file Other Topics Concern ??? Not on file Social History Narrative Lives with in [place], [place] Retired. Social Determinants of Health Financial Resource Strain: Not on file Food Insecurity: Not on file Transportation Needs: Not on file Physical Activity: Not on file Housing Stability: Not on file FAMILY HISTORY No family history on file. Vitals: 12/14/21 0200 12/14/21 0300 12/14/21 0315 12/14/21 0412 BP: 143/85 142/79 118/82 132/77 BP Location (NBP): Right arm Patient Position: Lying Pulse: 69 63 62 Resp: 17 18 16 17 Temp: 36.6 ??C (97.9 ??F) TempSrc: Oral SpO2: 95% 94% 95% Weight: PHYSICAL EXAM GENERAL: No acute distress, alert and oriented HEENT: AT/NC, sclerae anicteric, moist mucous membranes CHEST: CTA CARDIAC: RRR, normal S1/S2, no appreciable murmurs ABDOMEN: Soft, normoactive bowel sounds, non-tender, non-distended EXT: Warm, no edema NEURO: Grossly intact, moves all extremities SKIN: No jaundice LABS: Lab Results Component Value Date Sodium 142 12/13/2021 Potassium 4.1 12/13/2021 Chloride 105 12/13/2021 CO2 23 12/13/2021 BUN 25 (H) 12/13/2021 Creatinine 1.23 12/13/2021 Glucose Lvl 105 12/13/2021 CBC Lab Results Component Value Date WBC 6.0 12/14/2021 Hemoglobin 14.5 12/14/2021 Hematocrit 42.5 12/14/2021 Platelets 181 12/14/2021 LFT's Lab Results Component Value Date Alk Phos 98 12/13/2021 AST 29 12/13/2021 Albumin 4.4 12/13/2021 Total Bilirubin 0.6 12/13/2021 ALT 32 12/13/2021 Total Protein 7.2 12/13/2021 IMAGING: Reviewed in eDH 12/13/21 CT A/P IMPRESSION Active arterial extravasation of contrast into the lumen of the distal descending colon. ENDOSCOPY: Reviewed in eDH IMPRESSION: Ric Loyola is a 76 y.o. M with PMH of pAF on apixaban, CAD s/p VA with stent to RCA, ischemic cardiomyopathy, HLD admitted with hematochezia. Acute onset painless hematochezia, with differential including diverticulosis, although would have expected larger Hb drop. Hemorrhoids possible; ischemic colitis could also be considered although nowall thickening on CT or abdominal pain present. Can consider AVM, less likely occult mass with recent colonoscopy. As he remains clinically stable, would favor evaluating with colonoscopy tomorrow. Patient in agreement with plan. RECOMMENDATIONS: - two large bore IVs - Active T&S - Monitor Hgb q12h or more frequently based assessment of bleeding. - Transfuse for Hgb <7 if no ongoing signs of bleeding - Hold apixiban - Please page GI if patient has ongoing bleeding - CLD today - GoLytely prep this evening, to take after 4PM - NPO Thursday morning 6AM for colonoscopy The plan as outlined above was discussed with Dr. Sade Hernandez M.D. Fellow in Gastroenterology and Hepatology Pager #[phone] 12/14/2021 Attending Addendum: Please see Dr. Hernandez's note for details of the patient history of presentation and data. I have discussed, reviewed and agree with the documented History, Physical findings, Assessment and Plan of care. Sanjuana Stuart MD Section of Gastroenterology & Hepatology [address] [place], [place] [id number] * Consult Note - Sunita Berry [facility] - 12/14/2021 2:14 AM EDT TelePharmacy Home Medication List Update for Medication Reconciliation 12/14/21 2:14 AM Ric Loyola 1945 No Known Allergies ??? Person Interviewed: patient ??? Quality of Interview/accuracy of medication list: excellent ??? Sources used to compile medication list: [x] Epic medication list [x] SureScripts [] PCP/Specialist list [] Retail pharmacy [] Patient list [] MAR [] Other ??? Changes made to home medication list: o Additions: - Multivitamin 1 tab po daily o Deletions: - None o Changes: - Toprol XL 50mg po daily ??? Additional Notes: Updated medication list with information provided by the patient. ??? Recommended changes: None The home medication list is now updated to the best of my knowledge and is ready to be reconciled by the provider. Please contact the TelePharmacy Medication Reconciliation Pharmacist at for any questions. Sunita Berry RPH * ED Triage - Elvia Lang RN - 12/13/2021 11:34 PM EDT Pt noticed bright red blood in stool right before dinner at 7 pm, pt noticed clots in the stool. Pthas had 2 bright stools since then that were both filling the toilet bowl however not clots. Pt appears well, denies any abdominal pain. Pt is on blood thinner for AFIB. HPI (Adult) Stated Reason for Visit: rectal bleeding that started tonight at 7 pm History Obtained From: patient documented in this encounter Plan of Treatment Not on file documented as of this encounter Procedures Procedure Name Priority Date/Time Associated Diagnosis Comments SPECIMEN TO PATHOLOGY Routine 12/15/2021 10:54 AM EDT SPECIMEN TO PATHOLOGY Routine 12/15/2021 10:54 AM EDT SURGICAL PATHOLOGY REPORT Routine 12/15/2021 10:23 AM EDT COLONOSCOPY Routine 12/15/2021 9:26 AM EDT HC HEMOGLOBIN, BLOOD Routine 12/15/2021 6:46 AM EDT HC HEMOGLOBIN, BLOOD Routine 12/15/2021 1:33 AM EDT HC PHOSPHORUS, SERUM Routine 12/15/2021 1:33 AM EDT HC MAGNESIUM, SERUM Routine 12/15/2021 1 :33 AM EDT BASIC METABOLIC PANEL Routine 12/15/2021 1:33 AM EDT HC VENIPUNCTURE Routine 12/14/2021 6:18 PM EDT HC HEMOGLOBIN, BLOOD Routine 12/14/2021 12:43 PM EDT HC HEMOGRAM STAT 12/14/2021 3:48 AM EDT HC HEMOGLOBIN, BLOOD STAT 12/14/2021 1:[address] ABDOMEN AND PELVIS WWO CONTRAST (GI BLEED) STAT 12/14/2021 1:02 AM EDT HEMOGRAM STAT 12/13/2021 11:49 PM EDT DIFFERENTIAL, AUTOMATED STAT 12/13/2021 11:49 PM EDT HC PROTHROMBIN TIME STAT 12/13/2021 1 1:49 PM EDT HC CBC,PLT & AUTO DIFF STAT 11:49 PM EDT COMPREHENSIVE METABOLIC PANEL STAT 12/13/2021 11:49 PM EDT TYPE AND SCREEN VALIDITY STAT 12/13/2021 11:44 PM EDT ABORH RECHECK STATUS STAT 12/13/2021 11:44 PM EDT ABO/RH TYPING STAT 12/13/2021 11:44 PM EDT ANTIBODY SCREEN STAT 12/13/2021 11:44 PM EDT HC ANTIBODY DETECTION,CAPTURE-R STAT 12/13/2021 11:44 PM EDT EKG 12-LEAD STAT 12/13/2021 11:42 PM EDT Colonoscopy, Remv Frederick, Snare ([id number]) , documented in this encounter Results * Specimen to Pathology (12/15/2021 10:54 AM EDT) AP Specimen 12/15/2021 10:5 4 AM EDT 12/15/2021 10:54 AM EDT Narrative [facility] - 12/15/2021 10:54 AM EDT Specimen requisition ordered. ??Separate Pathology report to follow Angel Graves MD PATHOLOGY/CYTOLOGY O RDERABARBARA Performing Organization Address [facility]/ZIP Co de Phone Number [facility] [place] [address] * Specimen to Pathology (12/15/2021 10:54 AM EDT) AP Specimen 12/15/2021 10:5 4 AM EDT 12/15/2021 10:54 AM EDT Narrative [facility] - 12/15/2021 10:54 AM EDT Specimen requisition ordered. ??Separate Pathology report to follow Angel Graves MD PATHOLOGY/CYTOLOGY O RDERABLES Performing Organization Address [facility] [place] [address] * Surgical Pathology Report (12/15/2021 10:23 AM EDT) Final Diagnosis [id number] ? Location: 4WST; 0411; B The signing pathologist has (i) examined the relevant preparation(s) for the specimen(s) and (ii) rendered or confirmed the diagnosis(es). . ?Surgical Pathology DIAGNOSIS A - Ascending colon polyp, resection: - Sessile serrated polyp/adenoma. B - Transverse colon polyp, resection (Multiple): - Fragments of tubular adenoma. Electronically signed by: ?Marie Wolf MD Verified: ??12/18/2021 17:12 ??Pathologist Performed at: ??-[facility] [place] Dept. of [place]ology, [place], [place] SPECIMEN(S) SUBMITTED A - Ascending colon polyp, resection (1) B - Transverse colon polyp, resection (Multiple) CLINICAL INFORMATION History of polyps, GI bleed SPECIMEN PROCESSING A - Labeled/Fixativ e: Ascending colon polyp, formalin. Quantity/Size: Multiple, ranging from 0.1-0.6 cm. Tissue Description: Soft, pink tissues. Sections/Proces sing: Entirely submitted in 2 cassettes labeled A1-A2. B - Labeled/Fixativ e: Transverse colon polyp, formalin. Quantity/Size: Multiple, ranging from 0.3-1.0 cm. Tissue Description: Soft, gonzáles-pink polypoid tissue fragments. Sections/Proces sing: Entirely submitted in 3 cassettes labeled B1-B3. ??sns 12/18/2021 5:12 PM EDT [facility] GI Biopsy 12/15/2021 10:2 3 AM EDT 12/15/2021 10:23 AM EDT GI Biopsy 12/15/2021 10:2 3 AM EDT 12/15/2021 10:23 AM EDT Sanjuana Stuart MD PATHOLOGY/CYTOLOGY O RDERABLES [facility] [place] [address] * COLONOSCOPY (12/15/2021 9:26 AM EDT) COLONOSCOPY [facility] Endoscopy Procedure Date: 12/15/2021 9:26 AM ? Patient Name: Rci Loyola ? Date of : 1945 ? Age: 76 ? Order #: [id number] ? Instrument Name: [id number] ? Procedure: ? Colonoscopy Indications: ? Hematochezia [...] Prior Anticoagulants: The patient ? last took Eliarshis (apixaban) 2 days ? prior to the [...] preparation was evaluated ? using the BBPS (Nickerson Bowel ? Preparation Scale) with scores of: [...] EDT Unknown GENERAL SURGICAL ORD ERABLES PROVATION * (ABNORMAL) Hemoglobin and Hematocrit, blood (12/15/2021 6:46 AM EDT) Hemoglobin 12.9(L) 13.7 - 16.5 g/dL [facility] Hematocrit 38.4(L) 40.5 - 48.5 % [facility] Blood 12/15/2021 6:46 AM EDT 12/15/2021 7:08 AM EDT Narrative Resulting Agency Comment Spec In Lab Taran Vivar MD HEMATOLOGY ORDERABLE S [facility] [place] [address] * Basic Metabolic Panel (non-fasting) (12/15/2021 1:33 AM EDT) Glucose 90 65 - 199 mg/dL [facility] Comment:Diabetes: >=200 mg/d L plus symptoms Blood Urea Nitrogen 13 10 - 20 mg/dL [facility] Creatinine 0.99 0.80 - 1.50 mg/dL [facility] Sodium 140 135 - 145 mmol/L [facility] Potassium 3.7 3.5 - 5.0 mmol/L [facility] Comment: Please note: ??Patients with WBC >100,000 may have falsely elevated Potassium levels. ??For accurate Potassium quantification in these patients send serum separator tube (gold top) for subsequent determinations. ??Contact the Clinical Chemistry Laboratory if there are any questions. Chloride 106 98 - 107 mmol/L [facility] Carbon Dioxide 22 22 - 31 mmol/L [facility] Anion Gap 12 5 - 15 mmol/L [facility] Calcium 8.6 8.5 - 10.5 mg/dL [facility] Est Glomerular Filtration Rate 78 >=60 mL/min/1. 73 m?? [facility] Comment: This patient's estimated GFR was calculated using the 2020 CKD-EPI equation. The estimated GFR can vary from the measured GFR by up to 30% in the absence of rapidly changing kidney function. Assessment of the estimated GFR is not appropriate when creatinine concentrations are rapidly changing. For clinical situations in which a more precise estimate of GFR is necessary, consider alternative methods of GFR estimation such as a 24-hour urine creatinine clearance. Assignment of CKD stage 1-5 for patients with an eGFR near the transition point between stages may be based on clinical assessment of muscle mass and symptoms in addition to eGFR. Blood 12/15/2021 1:33 AM EDT 12/15/2021 1:51 AM EDT Narrative Resulting Agency Comment Spec In Lab Taran Vivar MD CHEMISTRY ORDERABLES Performing Organization Address [facility] Co de Phone Number [facility] [place] [address] * (ABNORMAL) Hemoglobin and Hematocrit, blood (12/15/2021 1:33 AM EDT) Hemoglobin 13.2(L) 13.7 - 16.5 g/dL [facility] LABORATORY Hematocrit 39.1(L) 40.5 - 48.5 % [facility] Blood 12/15/2021 1:33 AM EDT 12/15/2021 1:51 AM EDT Narrative Resulting Agency Comment Spec In Lab Taran Vivar MD HEMATOLOGY ORDERABLE S Performing Organization Address [facility] Co de Phone Number [facility] [place] [address] * (ABNORMAL) Phosphorus (12/15/2021 1:33 AM EDT) Phosphorus 2.4(L) 2.5 - 4.5 mg/dL [facility] Blood 12/15/2021 1:33 AM EDT 12/15/2021 1:51 AM EDT Narrative Resulting Agency Comment Spec In Lab Taran Vivar MD CHEMISTRY ORDERABLES Performing Organization Address [facility] Co de Phone Number [facility] [place] [address] * Magnesium (12/15/2021 1:33 AM EDT) Magnesium 0.83 0.69 - 1.07 mmol/L [facility] Blood 12/15/2021 1:33 AM EDT 12/15/2021 1:51 AM EDT Narrative Resulting Agency Comment Spec In Lab Taran Vivar MD CHEMISTRY ORDERABLES Performing Organization Address City/[facility]/ZIP Co de Phone Number [facility] [place] [address] * (ABNORMAL) Hemoglobin and Hematocrit, blood (12/14/2021 6:18 PM EDT) Hemoglobin 13.5(L) 13.7 - 16.5 g/dL [facility] Hematocrit 40.5 40.5 - 48.5 % [facility] Blood 12/14/2021 6:18 PM EDT 12/14/2021 6:22 PM EDT Narrative Resulting Agency Comment Spec In Lab Taran Vivar MD HEMATOLOGY ORDERABLE S Performing Organization Address [facility] Co de Phone Number [facility] [place] [address] * (ABNORMAL) Hemoglobin and Hematocrit, blood (12/14/2021 12:43 PM EDT) Hemoglobin 13.1(L) 13.7 - 16.5 g/dL [facility] Hematocrit 39.3(L) 40.5 - 48.5 % [facility] Blood 12/14/2021 12:4 3 PM EDT 12/14/2021 12:48 PM EDT Narrative Resulting Agency Comment Spec In Lab Taran Vivar MD HEMATOLOGY ORDERABLE S Performing Organization Address [facility]/ZIP Co de Phone Number [facility] [place] [address] * (ABNORMAL) Hemogram (12/14/2021 3:48 AM EDT) White Blood Cell 6.0 4.0 - 9.5 x10(3)/mc L [facility] Red Blood Cell 4.50(L) 4.58 - 5.54 x10(6)/mc L [facility] Hemoglobin 14.5 13.7 - 16.5 g/dL [facility] Hematocrit 42.5 40.5 - 48.5 % [facility] Mean Cell Volume 94.4(H) 82.9 - 93.1 fL [facility] Mean Cell Hemoglobin 32.2(H) 27.5 - 32.1 pg [facility] Mean Cell Hemoglobin Concentration 34.1 32.0 - 35.7 g/dL [facility] Platelet 181 145 - 357 x10(3)/mc L [facility] RDW Standard Deviation 43.8 36.0 - 45.0 [facility] LABORATORY RDW coefficient of variation 12.7 11.4 - 13.8 % [facility] Mean Platelet Volume 9.7 7.6 - 12.9 [facility] LABORATORY NRBC% auto 0.0 % [facility] NRBC Absolute 0.000 0.000 - 0.000 x10(3)/mc L [facility] Blood 12/14/2021 3:48 AM EDT 12/14/2021 3:52 AM EDT Narrative Resulting Agency Comment Spec In Lab Desirae Wallace MD HEMATOLOGY ORDERABL ES Performing Organization Address City/[facility]/[place] [address] * Hemoglobin and Hematocrit, blood (12/14/2021 1:50 AM EDT) Hemoglobin 14.0 13.7 - 16.5 g/dL [facility] Hematocrit 41.7 40.5 - 48.5 % [facility] Blood 12/14/2021 1:50 AM EDT 12/14/2021 2:01 AM EDT Narrative Resulting Agency Comment Spec In Lab Desirae Wallace MD HEMATOLOGY ORDERABL ES [facility] [place] [address] * CT Abdomen & Pelvis wwo Contrast (GI BLEED) (12/14/2021 1:02 AM EDT) Anatomical Region Laterality Modality Abdomen, Pelvis Computed Tomogra phy 12/14/2021 1:27 AM EDT Impressions 12/14/2021 1:33 AM EDT Active arterial extravasation of contrast into the lumen of the distal descending colon. I Crow Camarena discussed these results with Dr. Toth on 12/14/2021 1:07 AM and verified that she understood these results. I have personally reviewed the image(s) and the resident's interpretation and agree with the findings, Otoniel Wolf MD at 12/14/2021 1:33 AM Thank you for letting us participate in the care of this patient. ??If you are a health care provider and have any questions regarding this report, please contact the number below. ??For patients who have questions please contact the health healthcare management that requested your imaging first. ? Electronically signed by: Otoniel Wolf MD, [facility] ([phone]), at 12/14/2021 1:33 AM Narrative 12/14/2021 1:33 AM EDT EXAMINATION: CT ABDOMEN AND PELVIS WWO CONTRAST (GI BLEED) CLINICAL HISTORY: hx of diverticula now with LGIB concerning for diverticular bleed TECHNIQUE: Helical CT of the abdomen and pelvis was performed before and after the intravenous administration contrast utilizing GI bleed protocol. Administered 118.0 ml of OMNIPAQUE 350.00 mg/ml. Oral contrast was not administered. COMPARISON: None FINDINGS: GI Tract: Pre-contrast: No bowel dilatation or intraluminal hemorrhage. Arterial phase: Active extravasation of contrast into the lumen of the distal descending colon (series 13 image 357). Portal venous phase: There is pooling of contrast in the distal descending colon/proximal sigmoid colon on portal venous phase imaging. Peritoneum: No ascites or free air, no fluid collection. Lung bases: Bibasilar patchy opacities likely represent atelectasis. Liver: Hepatic cysts. Otherwise normal attenuation. Bile ducts: Non-dilated Gallbladder: No calcified gallstones. Normal caliber wall. Pancreas: Normal size, no focal lesions. Spleen: Normal size, no focal lesions. Adrenals: Normal size, no focal lesions. Kidneys: Normal size, no focal lesions. Urinary Bladder: Normal size, no focal lesions. Lymph Nodes: [No enlarged lymph nodes. Vasculature: Atherosclerotic calcification of the abdominal vasculature. No aneurysm. Abdominal wall: Normal size, no focal lesions. Reproductive organs: Normal size, no focal lesions. Osseous structures: No suspicious lesions. Procedure Note Otoniel Wolf MD - 12/14/2021 EXAMINATION: CT ABDOMEN AND PELVIS WWO CONTRAST (GI BLEED) CLINICAL HISTORY: hx of diverticula now with LGIB concerning fordiverticular bleed TECHNIQUE: Helical CT of the abdomen and pelvis was performed before andafter the intravenous administration contrast utilizing GI bleed protocol. Administered 118.0 ml of OMNIPAQUE 350.00 mg/ml. Oral contrast was not administered. COMPARISON: None FINDINGS: GI Tract: Pre-contrast: No bowel dilatation or intraluminal hemorrhage. Arterial phase: Active extravasation of contrast into the lumen of thedistal descending colon (series 13 image 357). Portal venous phase: There is pooling of contrast in the distaldescending colon/proximal sigmoid colon on portal venous phase imaging. Peritoneum: No ascites or free air, no fluid collection. Lung bases: Bibasilar patchy opacities likely represent atelectasis. Liver: Hepatic cysts. Otherwise normal attenuation. Bile ducts: Non-dilated Gallbladder: No calcified gallstones. Normal caliber wall. Pancreas: Normal size, no focal lesions. Spleen: Normal size, no focal lesions. Adrenals: Normal size, no focal lesions. Kidneys: Normal size, no focal lesions. Urinary Bladder: Normal size, no focal lesions. Lymph Nodes: [No enlarged lymph nodes. Vasculature: Atherosclerotic calcification of the abdominal vasculature.No aneurysm. Abdominal wall: Normal size, no focal lesions. Reproductive organs: Normal size, no focal lesions. Osseous structures: No suspicious lesions. IMPRESSION Active arterial extravasation of contrast into the lumen of the distal descending colon. I Crow Camarena discussed these results with Dr. Toth on 12/14/2021 1:07AM and verified that she understood these results. I have personally reviewed the image(s) and the resident's interpretationand agree with the findings, Otoniel Wolf MD at 12/14/2021 1:33 AM Thank you for letting us participate in the care of this patient. If youare a health care provider and have any questions regarding this report,please contact the number below. For patients who have questions please contactthe health healthcare management that requested your imaging first. Electronically signed by: Otoniel Wolf MD, [facility]([phone]), at 12/14/2021 1:33 AM Desirae Wallace MD IMG CT ORDERABLES * Differential, Automated (12/13/2021 11:49 PM EDT) Neutrophil % 68.3 % [facility] Neutrophil Absolute 4.42 1.70 - 6.10 x10(3)/[facility] LABORAT[facility] Lymph % 20.4 % [facility] Lymphocytes Abs 1.3 0.9 - 3.2 x10(3)/[facility]OR[facility]ORY Monocyte % 8.6 % [facility] Monocyte Abs 0.6 0.3 - 0.9 x10(3)/[facility]OR[facility] Eos % 1.5 % [facility] Eosinophils Abs 0.1 0.0 - 0.4 x10(3)/[facility] Basophil % 0.9 % [facility] Baso Absolute 0.1 0.0 - 0.1 x10(3)/[facility] Immature Gran % 0.30 % [facility] Comment: Immature granulocytes(IG's)percentage and absolute count will include metamyelocytes, myelocytes, and promyelocytes. Blood smears from CBCs yielding IG's will be scanned manually for concordance. If this scan disagrees with the automated IG or if promyelocytes are noted, a manual differential will be performed. Immature Gran Absolute 0.02 0.00 - 0.04 x10(3)/[facility] Blood 12/13/2021 11:4 9 PM EDT 12/13/2021 11:49 PM EDT Narrative Resulting Agency Comment Spec In Lab Milind Jones MD HEMATOLOGY ORDERA BLES [facility] [place] [address] * Hemogram (12/13/2021 11:49 PM EDT) White Blood Cell 6.5 4.0 - 9.5 x10(3)/[facility]ORY Red Blood Cell 4.89 4.58 - 5.54 x10(6)/[facility] Hemoglobin 15.0 13.7 - 16.5 g/dL [facility] Hematocrit 45.5 40.5 - 48.5 % [facility] Mean Cell Volume 93.0 82.9 - 93.1 fL [facility] Mean Cell Hemoglobin 30.7 27.5 - 32.1 pg [facility] Mean Cell Hemoglobin Concentration 33.0 32.0 - 35.7 g/dL [facility] Platelet 194 145 - 357 x10(3)/[facility]ORATORY RDW Standard Deviation 43.4 36.0 - 45.0 [facility]ORATORY RDW coefficient of variation 12.7 11.4 - 13.8 % [facility] Mean Platelet Volume 9.4 7.6 - 12.9 [facility] LABORATORY NRBC% auto 0.0 % [facility] NRBC Absolute 0.000 0.000 - 0.000 x10(3)/[facility] Blood 12/13/2021 11:4 9 PM EDT 12/13/2021 11:49 PM EDT Narrative Resulting Agency Comment Spec In Lab Milind Jones MD HEMATOLOGY ORDERA BLES [facility] [place] [address] * (ABNORMAL) Comprehensive metabolic panel (non-fasting) (12/13/2021 11:49 PM EDT) Glucose 105 65 - 199 mg/dL [facility] Comment:Diabetes: >=200 mg/d L plus symptoms Blood Urea Nitrogen 25(H) 10 - 20 mg/dL [facility] Creatinine 1.23 0.80 - 1.50 mg/dL [facility] Sodium 142 135 - 145 mmol/L [facility] Potassium 4.1 3.5 - 5.0 mmol/L [facility] Comment: Please note: ??Patients with WBC >100,000 may have falsely elevated Potassium levels. ??For accurate Potassium quantification in these patients send serum separator tube (gold top) for subsequent determinations. ??Contact the Clinical Chemistry Laboratory if there are any questions. Chloride 105 98 - 107 mmol/L [facility] Carbon Dioxide 23 22 - 31 mmol/L [facility] Anion Gap 14 5 - 15 mmol/L [facility] Calcium 9.1 8.5 - 10.5 mg/dL [facility] Protein, Total 7.2 6.1 - 8.0 g/dL [facility] Albumin 4.4 3.2 - 5.2 g/dL [facility] Aspartate Aminotransferase 29 0 - 39 unit/L [facility] Alanine Aminotransferase 32 0 - 55 unit/L [facility] Alkaline Phosphatase 98 40 - 130 unit/L [facility] Bilirubin, Total 0.6 0.2 - 1.3 mg/dL [facility] Est Glomerular Filtration Rate 60 >=60 mL/min/1. 73 m?? [facility] Comment: This patient's estimated GFR was calculated using the 2020 CKD-EPI equation. The estimated GFR can vary from the measured GFR by up to 30% in the absence of rapidly changing kidney function. Assessment of the estimated GFR is not appropriate when creatinine concentrations are rapidly changing. For clinical situations in which a more precise estimate of GFR is necessary, consider alternative methods of GFR estimation such as a 24-hour urine creatinine clearance. Assignment of CKD stage 1-5 for patients with an eGFR near the transition point between stages may be based on clinical assessment of muscle mass and symptoms in addition to eGFR. Blood 12/13/2021 11:4 9 PM EDT 12/13/2021 11:49 PM EDT Narrative Resulting Agency Comment Spec In Lab Milind Jones MD CHEMISTRY ORDERAB LES Performing Organization Address [facility] Co de Phone Number [facility] [place] [address] * (ABNORMAL) Prothrombin Time (12/13/2021 11:49 PM EDT) Prothrombin Time 14.1(H) 9.4 - 12.5 sec [facility] International Normalization Ratio 1.2 [facility] Comment: An INR <2.0 indicates adequate procoagulant activity for hemostasis in most patients without underlying bleeding disorders, though the INR may not adequately reflect hemostatic capacity in patients with liver disease and synthetic impairment. The recommended target INR range for therapeutic anticoagulation is 2.0 ? 3.0 for most applications, though lower and higher ranges may be appropriate depending on clinical circumstances. Blood 12/13/2021 11:4 9 PM EDT 12/13/2021 11:49 PM EDT Narrative Resulting Agency Comment Spec In Lab Milind Jones MD HEMATOLOGY ORDERA BLES Performing Organization Address [facility] Co de Phone Number [facility] [place] [address] * Type and Screen Validity (12/13/2021 11:44 PM EDT) T&S only valid at [facility] LABORATORY Comment:This Type and Screen result is only valid at the [facility] Blood 12/13/2021 11:4 4 PM EDT 12/13/2021 11:47 PM EDT Narrative Resulting Agency Comment Spec In Lab Milind Jones MD BLOOD BANK LAB OR DERABLES Performing Organization Address City/[facility]/ZIP Co de Phone Number [facility] [place] [address] * ABORH Recheck Status (12/13/2021 11:44 PM EDT) ABORH Recheck Order Order Placed [facility] ABORH Type Recheck Complete [facility] Blood 12/13/2021 11:4 4 PM EDT 12/13/2021 11:47 PM EDT Narrative Resulting Agency Comment Spec In Lab Milind Jones MD BLOOD BANK LAB OR DERABLES Performing Organization Address [facility]/ZIP Co de Phone Number [facility] [place] [address] * Antibody screen (12/13/2021 11:44 PM EDT) Ab Screen Interp Negative [facility] Expires at [id number] on: 12/16/2021 [facility] Blood 12/13/2021 11:4 4 PM EDT 12/13/2021 11:47 PM EDT Narrative Resulting Agency Comment Spec In Lab Milind Jones MD BLOOD BANK LAB OR DERABLES Performing Organization Address City/[facility]/ZIP Co de Phone Number [facility] [place] [address] * ABO/Rh Typing (12/13/2021 11:44 PM EDT) ABORH Type AB Neg [facility] Blood 12/13/2021 11:4 4 PM EDT 12/13/2021 11:47 PM EDT Narrative Resulting Agency Comment Spec In Lab Milind Jones MD BLOOD BANK LAB OR DERABLES [facility] [place] [address] * EKG 12 Lead (12/13/2021 11:42 PM EDT) Ventricular rate 62 BPM MUSE SYSTEM Atrial Rate 62 BPM MUSE SYSTEM P-R Interval 182 ms MUSE SYSTEM QRS Duration 110 ms MUSE SYSTEM Q-T Interval 436 ms MUSE SYSTEM QTC Calculated (Bezet) 442 ms MUSE SYSTEM Calculated P [place] 74 degrees MUSE SYSTEM Calculated R [place] -2 degrees MUSE SYSTEM Calculated T [place] -17 degrees MUSE SYSTEM INTERPRETATION Normal sinus rhythm Inferior infarct (cited on or before 15-MAR-2000) Cannot rule out Anterior infarct (cited on or before 02-FEB-2017) Abnormal ECG When compared with ECG of 02-FEB-2017 07:59, No significant change was found Confirmed by MD Elan, Thor Gonzalez ([id number]) on 12/14/2021 12:25:36 PM MUSE SYSTEM 12/13/2021 11:4 2 PM EDT 12/14/2021 12:25 PM EDT Desirae Wallace MD ECG ORDERABLES Performing Organization Address [facility] Co de Phone Number MUSE SYSTEM documented in this encounter Visit Diagnoses Not on filedocumented in this encounter Admitting Diagnoses Diagnosis Hematochezia Blood in stool documented in this encounter Administered Medications Inactive Administered Medications - up to 3 most recent administrations Medication Order MAR Action Action Date Dose Rate Site atorvastatin (Lipitor) tablet 20 mg 20 mg, Oral, EVERY EVENING, First dose on 12/14/21 at 1700, Until Discontinued, Routine Given 12/14/2021 6:13 PM EDT 20 mg dilTIAZem CD (Cardizem CD) capsule 180 mg 180 mg, Oral, DAILY, First dose on 12/15/21 at 1215, Until Discontinued, DO NOT CRUSH OR OPEN, Routine Given 12/15/2021 11:48 AM EDT 180 mg fentaNYL (pf) (50 mcg/mL) multi-dose injection ONCE PRN, Starting on 12/15/21 at 1003, Until 12/15/21 at 1502, Intra-Operative (Intra-Procedure), Routine Given 12/15/2021 10:15 AM EDT 50 mcg Given 12/15/2021 10:09 AM EDT 50 mcg Given 12/15/2021 10:05 AM EDT 50 mcg lactated ringers infusion 75 mL/hr, Intravenous, CONTINUOUS, Starting on 12/14/21 at 0227, Until 12/15/21 at 1502 Rate/Dose Change 12/15/2021 7:52 AM EDT 75 mL/hr 75 mL/hr New Bag 12/15/2021 5:15 AM EDT 125 mL/hr 125 mL/hr New Bag 12/14/2021 9:17 PM EDT 125 mL/hr 125 mL/hr metoprolol succinate XL (Toprol-XL) tablet 50 mg 50 mg, Oral, DAILY, First dose on 12/15/21 at 1215, Until Discontinued, DO NOT CRUSH OR OPEN, Routine Given 12/15/2021 11:48 AM EDT 50 mg midazolam (pf) (Versed) (1 mg/mL) multi-dose injection ONCE PRN, Starting on 12/15/21 at 1003, Until 12/15/21 at 1502, Intra-Operative (Intra-Procedure), Routine Given 12/15/2021 10:13 AM EDT 1 mg Given 12/15/2021 10:09 AM EDT 1 mg Given 12/15/2021 10:05 AM EDT 1 mg pantoprazole (Protonix) injection 40 mg 40 mg, Intravenous, 2 TIMES DAILY, First dose on 12/14/21 at 0600, Until Discontinued Given 12/15/2021 10:55 AM EDT 4 0 mg Given 12/14/2021 9:12 PM EDT 40 mg Given 12/14/2021 9:16 AM EDT 40 mg sodium chloride 0.9 % (flush) (BD PosiFlush Normal Saline 0.9) flush 5 mL 5 mL, Intravenous, 2 TIMES DAILY, First dose on 12/14/21 at 0900, Until Discontinued, Routine Given 12/15/2021 10:54 AM EDT 5 mLs Given 12/14/2021 9:17 AM EDT 5 mLs sodium chloride 0.9 % (flush) (BD PosiFlush Normal Saline 0.9) flush 5 mL 5 mL, Intravenous, 2 TIMES DAILY, First dose on 12/14/21 at 0235, Until Discontinued, Routine Given 12/15/2021 10:54 AM EDT 5 mLs Given 12/14/2021 9:12 PM EDT 5 mLs Given 12/14/2021 9:16 AM EDT 5 mLs sodium chloride 0.9 % (flush) (BD PosiFlush Normal Saline 0.9) flush 5-20 mL 5-20 mL, Intravenous, EVERY 1 MIN PRN, Starting on 12/14/21 at 0233, Until 12/15/21 at 1502, flush, Flush pertains to all indwelling lines. Flush per protocol found in the job aid using the link provided on this medication record., Routine documented in this encounter Active and Recently Administered Medications Times are shown in EDT. Scheduled Medication Order 12/13/2021 12/14/2021 12/15/2021 atorvastatin (Lipitor) tablet 20 mg 20 mg, Oral, EVERY EVENING, First dose on 12/14/21 at 1700, Until Discontinued, Routine 1813 (Given - Provider: Bharti Guardado RN) 0948 (JUL Hold - Provider: Admin Adt - Reason: Transfer to a Procedural area)1047 (MAR Unhold - Provider: Admin Adt) bisacodyl EC (Dulcolax) tablet 20 mg (COMPLETED)(Linked Group 1) 20 mg, Oral, ONCE, 1 dose, On 12/14/21 at 1500, At 3 PM the evening prior to the colonoscopy, please have the patient take Bisacodyl 20mg PO Once with 8 ounces of water., Routine 1530 (Given - Provider: Bharti Guardado RN) dilTIAZem CD (Cardizem CD) capsule 180 mg 180 mg, Oral, DAILY, First dose on 12/15/21 at 1215, Until Discontinued, DO NOT CRUSH OR OPEN, Routine 1148 (Given - Provid er: Nati Lerma RN) metoprolol succinate XL (Toprol-XL) tablet 50 mg 50 mg, Oral, DAILY, First dose on 12/15/21 at 1215, Until Discontinued, DO NOT CRUSH OR OPEN, Routine 1148 (Given - Provid er: Nati Lerma, ARON) pantoprazole (Protonix) injection 40 mg (COMPLETED) 40 mg, Intravenous, ONCE, 1 dose, On 12/14/21 at 0233 0246 (Given - Provider: Elvia Lang RN) pantoprazole (Protonix) injection 40 mg 40 mg, Intravenous, 2 TIMES DAILY, First dose on 12/14/21 at 0600, Until Discontinued 0916 (Given - Provider: Bharti Guardado, ARON)2112 (Given - Provider: Madalyn Ballesteros RN) 0948 (JUL Hold - Provider: Admin Adt - Reason: Transfer to a Procedural area)1047 (MAR Unhold - Provider: Admin Adt)1055 (Given - Provider: Nati Lerma, ARON) polyethylene glycoL (GoLYTELY) BOWEL PREP powder for solution JUG (236g diluted to 4000 mL) 2,000 mL (COMPLETED)(Linked Group 1) 2,000 mL, Oral, ONCE, 1 dose, On 12/14/21 at 1800, Starting at approximately 6 PM (or later if indicated) the evening prior to the colonoscopy, the patient takes 240 mL (8 oz) of the PEG solution every 10 minutes (or as tolerated) for a total of two liters, then stop (save the second half for morning. This package contains polyethylene glycol 236 g to be dissolved in 4000 mL., Routine 181 (Given - Provider: Bharti Guardado RN) polyethylene glycoL (GoLYTELY) BOWEL PREP powder for solution JUG (236g diluted to 4000 mL) 2,000 mL (COMPLETED)(Linked Group 1) 2,000 mL, Oral, ONCE, 1 dose, On 12/15/21 at 0000, Patients consume their morning dose (the remaining prep) four hours prior to the procedure (For patients with oyster grader procedures, this may require that the patient complete their morning dose before 4 AM. Assume all procedures are scheduled for 8AM unless otherwise instructed). A patient is considered clear and ready for the procedure only if the rectal effluent is clear as water. If not, up to an additional 2 Liters of PEG solution may be given within the timeframe above. This package contains polyethylene glycol 236 g to be dissolved in 4000 mL., Routine 0014 (Given - Provid er: Madalyn Ballesteros RN) sodium chloride 0.9 % (flush) (BD PosiFlush Normal Saline 0.9) flush 5 mL 5 mL, Intravenous, 2 TIMES DAILY, First dose on 12/14/21 at 0900, Until Discontinued, Routine 0917 (Given - Provider: Bharti Guardado, ARON)2100 (Not Given - Provider: Madalyn Ballesteros RN - Reason: See comment - Comment: duplicate order) 0948 (MAR Hold - Provider: Admin Adt - Reason: Transfer to a Procedural area)1047 (BANNER Unhold - Provider: Admin Adt)1054 (Given - Provider: Nati Lerma, ARON) sodium chloride 0.9 % (flush) (BD PosiFlush Normal Saline 0.9) flush 5 mL 5 mL, Intravenous, 2 TIMES DAILY, First dose on 12/14/21 at 0235, Until Discontinued, Routine 0246 (Given - Provider: Elvia Lang RN)0916 (Given - Provider: Bharti Guardado, ARON)2112 (Given - Provider: Madalyn Ballesteros RN) 0948 (BANNER Hold - Provider: Admin Adt - Reason: Transfer to a Procedural area)1047 (BANNER Unhold - Provider: Admin Adt)1054 (Given - Provider: Nati Lerma, ARON) Continuous Medication Order 12/13/2021 12/14/2021 12/15/2021 lactated ringers infusion 75 mL/hr, Intravenous, CONTINUOUS, Starting on 12/14/21 at 0227, Until 12/15/21 at 1502 0247 (New Bag - Provider: Elvia Lang RN)1320 (New Bag - Provider: Bharti Guardado, ARON)2117 (New Bag - Provider: Madalyn Ballesteros RN) 0515 (New Bag - Provider: Madalyn Ballesteros RN)0752 (Rate/Dose Change - Provider: Nati Lerma, ARON)0948 (BANNER Hold - Provider: Admin Adt - Reason: Transfer to a Procedural area)1047 (BANNER Unhold - Provider: Admin Adt)1502 (Due: Stopped) PRN Medication Order 12/13/2021 12/14/2021 12/15/2021 fentaNYL (pf) (50 mcg/mL) multi-dose injection (CANCELED) ONCE PRN, Starting on 12/15/21 at 1003, Until 12/15/21 at 1502, Intra-Operative (Intra-Procedure), Routine 1003 (Given - Provid er: Hugh Oliver RN)1005 (Given - Provider: Hugh Oliver RN)1009 (Given - Provider: Hugh Oliver RN)1015 (Given - Provider: Hugh Oliver RN) iohexoL (Omnipaque) (350 mg/mL) solution 0-200 mL (COMPLETED) 0-200 mL, Intravenous, ONCE PRN, 1 dose, Starting on 12/14/21 at 0102, Until 12/14/21 at 0102, Per Protocol, Warning Vesicant/Irritant Medication , Radiology Contrast, Routine 010 (Given - Provider: Jonathon Shore) lidocaine (Xylocaine) 1% (10 mg/mL) injection 3 mg 3 mg (0.3 mL), Subcutaneous, ONCE PRN, 1 dose, Starting on 12/14/21 at 0509, Until 12/15/21 at 1502, for discomfort with PIV insertion, Routine 0948 (JUL Hold - Provider: Admin Adt - Reason: Transfer to a Procedural area)1047 (JUL Unhold - Provider: Admin Adt) midazolam (pf) (Versed) (1 mg/mL) multi-dose injection (CANCELED) ONCE PRN, Starting on 12/15/21 at 1003, Until 12/15/21 at 1502, Intra-Operative (Intra-Procedure), Routine 1003 (Given - Provid er: Hugh Oliver RN)1005 (Given - Provider: Hugh Oliver RN)1009 (Given - Provider: Hugh Oliver RN)1013 (Given - Provider: Hugh Oliver RN) sodium chloride 0.9 % (flush) (BD PosiFlush Normal Saline 0.9) flush 5-20 mL 5-20 mL, Intravenous, EVERY 1 MIN PRN, Starting on 12/14/21 at 0509, Until 12/15/21 at 1502, flush, Flush pertains to all indwelling lines. Flush per protocol found in the job aid using the link provided on this medication record., Routine 09 (JUL Hold - Provider: Admin Adt - Reason: Transfer to a Procedural area)1047 (JUL Unhold - Provider: Admin Adt) sodium chloride 0.9 % (flush) (BD PosiFlush Normal Saline 0.9) flush 5-20 mL 5-20 mL, Intravenous, EVERY 1 MIN PRN, Starting on 12/14/21 at 0233, Until 12/15/21 at 1502, flush, Flush pertains to all indwelling lines. Flush per protocol found in the job aid using the link provided on this medication record., Routine 09 (JUL Hold - Provider: Admin Adt - Reason: Transfer to a Procedural area)1047 (JUL Unhold - Provider: Admin Adt) Linked Groups Order Group 1: bisacodyl EC (Dulcolax) tablet 20 mg (COMPLETED)Jump to med 20 mg, Oral, ONCE, 1 dose, On 12/14/21 at 1500, At 3 PM the evening prior to the colonoscopy, please have the patient take Bisacodyl 20mg PO Once with 8 ounces of water., Routine Followed by polyethylene glycoL (GoLYTELY) BOWEL PREP powder for solution JUG (236g diluted to 4000 mL) 2,000 mL (COMPLETED)Jump to med 2,000 mL, Oral, ONCE, 1 dose, On 12/14/21 at 1800, Starting at approximately 6 PM (or later if indicated) the evening prior to the colonoscopy, the patient takes 240 mL (8 oz) of the PEG solution every 10 minutes (or as tolerated) for a total of two liters, then stop (save the second half for morning. This package contains polyethylene glycol 236 g to be dissolved in 4000 mL., Routine Followed by polyethylene glycoL (GoLYTELY) BOWEL PREP powder for solution JUG (236g diluted to 4000 mL) 2,000 mL (COMPLETED)Jump to med 2,000 mL, Oral, ONCE, 1 dose, On 12/15/21 at 0000, Patients consume their morning dose (the remaining prep) four hours prior to the procedure (For patients with oyster grader procedures, this may require that the patient complete their morning dose before 4 AM. Assume all procedures are scheduled for 8AM unless otherwise instructed). A patient is considered clear and ready for the procedure only if the rectal effluent is clear as water. If not, up to an additional 2 Liters of PEG solution may be given within the timeframe above. This package contains polyethylene glycol 236 g to be dissolved in 4000 mL., Routine documented in this encounter Care Teams Car Deliverer Relationship Specialty Start Date End Date Pritesh Davis MD [address] [place] [address] PCP - General Family Medicine 12/13/21 documented as of this encounter
--- OUTSIDE RECORDS SUMMARY | 2024-03-16 20:27 | XMS_ITS | Encounter Summary ---
Author Organization [facility] Address [address] [place] [address] Care Team Providers Care Airport Location Manager Name Role Phone Unavailable Primary Care Provider Unavailabl e Encounter Details Date Type Department Care Team (Late st Contact Info) Description 11/20/2005 Results Only [facility] [place] conversion [address] [place] [address] Ric Barraza MD [address] [place] [address] Social History Tobacco Use Types Packs/Day Years Used Date Smoking Tobacco: Never Assessed Sex and Gender Information Value Date Recorded Sex Assigned at Not on file Gender Identity Not on file Sexual Orientation Not on file documented as of this encounter Plan of Treatment Not on file documented as of this encounter Procedures Procedure Name Priority Date/Time Associated Diagnosis Comments SURGICAL PATHOLOGY Routine 11/20/2005 0:00 EDT documented in this encounter Results * SURGICAL PATHOLOGY (11/20/2005 0:00 EDT) Pathology Report: SURGICAL PATHOLOGY REPORT Reports generated via electronic interface contain original data; however they are lacking the format of the original report. Caution should be taken when reading/interpreting unformatted reports. Name: ? RIC MORTENSEN ? Accession #: ? [id number] ? : ? 1945 (Age: 60) ??M ? Collect Date: ? 11/20/2005 ? Location: ? [facility] ? Receive Date: ? 11/21/2005 ? Provider: RIC BARRAZA MD Copy to: JOHNNY BARTHOLOMEW MD ? Final Pathologic Diagnosis: ? Colon, ascending, polyp, biopsy: - Electrocauterized colonic mucosa (2 pieces) with features suggestive of hyperplastic polyp. Comment: ? Electrocauterization precludes further characterization of the specimen. (Dr. Cardenas)/[facility] Document reviewed and electronically signed by: Flor Cardenas MD Report ??Date: 11/24/2005 18:06 By the signature above, the attending physician certifies that he/she has personally conducted a gross and/or microscopic examination of the described specimens and rendered or confirmed the above diagnosis. Specimen(s) Received: ? Ascending colon polyp Clinical History: ? Screening Gross Description: ? Received in Hollande's fixative labelled [place] and asc colon polyp are two gonzáles-brown polypoid portions of soft tissue averaging 0.4 x 0.3 x 0.2 cm. Submitted in toto in one cassette. ??(Denita Tuttle/lgk End of Report [facility] 11/20/2005 11/21/2005 8:4 2 EDT Ric Barraza MD PATHOLOGY ORDERABLE S [facility] [address] [place] [address] documented in this encounter Visit Diagnoses Not on filedocumented in this encounter
--- OUTSIDE RECORDS SUMMARY | 2024-03-16 20:27 | XMS_ITS | Encounter Summary ---
Author Organization [facility] [place] [address] Care Team Providers Care Heat Treat Operator Name Role Phone Pritesh Davis MD Primary Care Provider [phone] Reason for Visit * Reason Comments Rectal Bleeding * Auth/Cert Specialty Diagnoses / Procedures Referred By Contac t Referred To Contact Diagnoses Hematochezia [place] [address] [facility] Referral ID Status Reason Start Date Expiration Date Visits Re quested Visits Authorized [id number] 1 1 Encounter Details Date Type Department Care Team (Latest Contact Info) Description 12/13/2021 11:26 PM EDT - 12/15/2021 1:01 PM EDT Hospital Encounter [address] [place] [address] Desirae Wallace MD [facility] [place] [address] [place] [address] [place] [address] Hematochezia (Primary Dx) Discharge Disposition: Home Social History Tobacco Use Types Packs/Day Years [...] Ric Loyola Patient Age: 76 y.o. Language: Cambodian Race: White Ethnicity: Not nor Admit date: [...] please contact your inpatient physician through the [facility] [employer] . Issues afterhours and on weekends will [...] of paroxysmal Afib on Apixaban, CAD s/p IA with stent to RCA, ischemic cardiomyopathy, HLD, [...] that he quit smoking since he had IA in 1999. Drinks about 2 beers per [...] deced ?on follow up colonoscopy. CT Abd/Pelvis, 12/14 IMPRESSION Active arterial extravasation of contrast into [...] Follow-Up Appointments None Your Inpatient Doctor(s) at [facility]: Dr. Angel Barker General Instructions None Discharge References/Attachments GI Bleeding: Lower (Cambodian) documented in this encounter Discharge Instructions * [...] Follow-Up Appointments None Your Inpatient Doctor(s) at [facility]: Dr. Angel Barker * Attachments The following attachments cannot be sent through Care Everywhere. * GI Bleeding: Lower (Cambodian) documented in this encounter Medications at Time [...] of this encounter Progress Notes * Angel Barker MD - 12/15/2021 1:01 PM EDT Hospital [...] Consult Note Patient Name: Ric Loyola : [id number] MR#: [id number] Ric Loyola is a 76 yo male [...] Interventional & Diagnostic Radiology IR Team Pager: [phone] Personal Pager [phone] * Madalyn Childers RN - 12/14/2021 5:22 [...] of paroxysmal Afib on Apixaban, CAD s/p IA with stent to RCA, ischemic cardiomyopathy, HLD, [...] that he quit smoking since he had IA in 1999. Drinks about 2 beers per [...] Surgical History: Afib on Apixaban, CAD s/p IA with stent to RCA, ischemic cardiomyopathy, HLD, [...] file Social History Narrative Lives with in [place], [place] Retired. Social Determinants of Health Financial [...] Value Ref Range T&S only valid at [facility] Hosp Prothrombin Time Result Value Ref Range [...] of paroxysmal Afib on Apixaban, CAD s/p IA with stent to RCA, ischemic cardiomyopathy, HLD, [...] shows hemodynamic instability and requires ongoing transfusions #IA s/p PCI #History of Afib -Hold home [...] Consult Note Patient Name: Ric Loyola : [id number] MR#: [id number] I received a call from the ED [...] hematochezia since 7pm. Last dose of eliquis 8 AM. He is hemodynamically stable with Hgb [...] Akbar MD Interventional & Diagnostic Radiology Pager [phone] 12/14/2021 documented in this encounter ED Notes [...] chart. Medical History: History of heart attack, 2000. Had a stent placed Paroxsymal Afib: for [...] who have questions please contact the health care nurse rn that requested your imaging first. Course as of 12/14/21 0350 Sat Dec [...] multiple bright red/dark red with clots BMs. MD notified. Voiding in the BR, adequate amount. [...] PMH of pAF on apixaban, CAD s/p IA with stent to RCA, ischemic cardiomyopathy, HLD [...] reports prior colonoscopy with diverticulosis; done at [facility] in 12/2020. No prior EGD. In [...] file Social History Narrative Lives with in [place], [place] Retired. Social Determinants of Health Financial [...] PMH of pAF on apixaban, CAD s/p IA with stent to RCA, ischemic cardiomyopathy, HLD [...] M.D. Fellow in Gastroenterology and Hepatology Pager #[phone] 12/14/2021 Attending Addendum: Please see Dr. Hernandez's note for details of the patient history of presentation and data. I have discussed, reviewed and agree with the documented History, Physical findings, Assessment and Plan of care. Sanjuana Stuart MD Section of Gastroenterology & Hepatology [address] [place], [place] [id number] * Consult Note - Sunita Berry RPH - 12/14/2021 2:14 AM EDT TelePharmacy Home [...] 11:42 PM EDT Colonoscopy, Remv Frederick, Snare ([id number]) , documented in this encounter Results * Specimen to Pathology (12/15/2021 10:54 AM EDT) AP Specimen 12/15/2021 10:5 4 AM EDT 12/15/2021 10:54 AM EDT Narrative [facility] - 12/15/2021 10:54 AM EDT Specimen requisition ordered. ??Separate Pathology report to follow Angel Graves MD PATHOLOGY/CYTOLOGY O DASHA Performing Organization Address City/State/[facility] Co de Phone Number [facility] [place] [address] * Specimen to Pathology (12/15/2021 10:54 AM EDT) AP Specimen 12/15/2021 10:5 4 AM EDT 12/15/2021 10:54 AM EDT Narrative [facility] - 12/15/2021 10:54 AM EDT Specimen requisition ordered. ??Separate Pathology report to follow Angel Graves MD PATHOLOGY/CYTOLOGY O RDWERNER [facility] [place] [address] * Surgical Pathology Report (12/15/2021 10:23 AM EDT) Final Diagnosis [id number] ? Location: 4WST; 0411; B The signing pathologist has (i) examined the relevant preparation(s) for the specimen(s) and (ii) rendered or confirmed the diagnosis(es). . ?Surgical Pathology DIAGNOSIS A - Ascending colon polyp, resection: - Sessile serrated polyp/adenoma. B - Transverse colon polyp, resection (Multiple): - Fragments of tubular adenoma. Electronically signed by: ?Marie Wolf MD Verified: ??12/18/2021 17:12 ??Pathologist Performed at: ??-[facility] Dept. of Pathology, [place], [place] SPECIMEN(S) SUBMITTED A - Ascending colon [...] labeled B1-B3. ??sns 12/18/2021 5:12 PM EDT [facility] GI Biopsy 12/15/2021 10:2 3 AM EDT 12/15/2021 10:23 AM EDT GI Biopsy 12/15/2021 10:2 3 AM EDT 12/15/2021 10:23 AM EDT Sanjuana Stuart MD PATHOLOGY/CYTOLOGY Ana LOU YRN [facility] [place] [address] * COLONOSCOPY (12/15/2021 9:26 AM EDT) COLONOSCOPY [facility] Endoscopy Procedure Date: 12/15/2021 9:26 AM ? Patient Name: Ric Loyola ? N: [id number] ? Date of : 1945 ? Age: 76 ? Order #: [id number] ? Instrument Name: [id number] ? Procedure: ? Colonoscopy Indications: ? Hematochezia [...] preparation was evaluated ? using the BBPS (Sidney Bowel ? Preparation Scale) with scores of: [...] EDT) Hemoglobin 12.9(L) 13.7 - 16.5 g/dL [facility] Hematocrit 38.4(L) 40.5 - 48.5 % [facility] Blood 12/15/2021 6:46 AM EDT 12/15/2021 7:08 AM EDT Narrative Resulting Agency Comment Spec In Lab Taran Vivar MD HEMATOLOGY ORDERABLE S [facility] [place] [address] * Basic Metabolic Panel (non-fasting) (12/15/2021 1:33 AM EDT) Glucose 90 65 - 199 mg/dL [facility] Comment:Diabetes: >=200 mg/d L plus symptoms Blood Urea Nitrogen 13 10 - 20 mg/dL [facility] Creatinine 0.99 0.80 - 1.50 mg/dL [facility] Sodium 140 135 - 145 mmol/L [facility] Potassium 3.7 3.5 - 5.0 mmol/L [facility] Comment: Please note: ??Patients with WBC >100,000 may have falsely elevated Potassium levels. ??For accurate Potassium quantification in these patients send serum separator tube (gold top) for subsequent determinations. ??Contact the Clinical Chemistry Laboratory if there are any questions. Chloride 106 98 - 107 mmol/L [facility] Carbon Dioxide 22 22 - 31 mmol/L [facility] Anion Gap 12 5 - 15 mmol/L [facility] Calcium 8.6 8.5 - 10.5 mg/dL [facility] Est Glomerular Filtration Rate 78 >=60 mL/min/1. 73 m?? [facility] Comment: This patient's estimated GFR was [...] Vivar MD CHEMISTRY ORDERABLES Performing Organization Address City/[facility] Co de Phone Number [facility] [place] [address] * (ABNORMAL) Hemoglobin and Hematocrit, blood (12/15/2021 1:33 AM EDT) Hemoglobin 13.2(L) 13.7 - 16.5 g/dL [facility] Hematocrit 39.1(L) 40.5 - 48.5 % [facility] Blood 12/15/2021 1:33 AM EDT 12/15/2021 1:51 AM EDT Narrative Resulting Agency Comment Spec In Lab Taran Vivar MD HEMATOLOGY ORDERABLE S Performing Organization Address [facility] Co de Phone Number [facility] [place] [address] * (ABNORMAL) Phosphorus (12/15/2021 1:33 AM EDT) Phosphorus 2.4(L) 2.5 - 4.5 mg/dL [facility] Blood 12/15/2021 1:33 AM EDT 12/15/2021 1:51 AM EDT Narrative Resulting Agency Comment Spec In Lab Taran Vivar MD CHEMISTRY ORDERABLES Performing Organization Address City/[facility] Co de Phone Number [facility] [place] [address] * Magnesium (12/15/2021 1:33 AM EDT) Magnesium 0.83 0.69 - 1.07 mmol/L [facility] Blood 12/15/2021 1:33 AM EDT 12/15/2021 1:51 AM EDT Narrative Resulting Agency Comment Spec In Lab Taran Vivar MD CHEMISTRY ORDERABLES [facility] [place] [address] * (ABNORMAL) Hemoglobin and Hematocrit, blood (12/14/2021 6:18 PM EDT) Hemoglobin 13.5(L) 13.7 - 16.5 g/dL [facility] Hematocrit 40.5 40.5 - 48.5 % [facility] Blood 12/14/2021 6:18 PM EDT 12/14/2021 6:22 PM EDT Narrative Resulting Agency Comment Spec In Lab Taran Vivar MD HEMATOLOGY ORDERABLE S Performing Organization Address City/[facility]/ZIP Co de Phone Number [facility] [place] [address] * (ABNORMAL) Hemoglobin and Hematocrit, blood (12/14/2021 12:43 PM EDT) Hemoglobin 13.1(L) 13.7 - 16.5 g/dL [facility] Hematocrit 39.3(L) 40.5 - 48.5 % [facility] Blood 12/14/2021 12:4 3 PM EDT 12/14/2021 12:48 PM EDT Narrative Resulting Agency Comment Spec In Lab Taran Vivar MD HEMATOLOGY ORDERABLE S [facility] [place] [address] * (ABNORMAL) Hemogram (12/14/2021 3:48 AM EDT) White Blood Cell 6.0 4.0 - 9.5 x10(3)/ L [facility] Red Blood Cell 4.50(L) 4.58 - 5.54 x10(6)/ L [facility] Hemoglobin 14.5 13.7 - 16.5 g/dL [facility] Hematocrit 42.5 40.5 - 48.5 % [facility] Mean Cell Volume 94.4(H) 82.9 - 93.1 fL [facility] Mean Cell Hemoglobin 32.2(H) 27.5 - 32.1 pg [facility] Mean Cell Hemoglobin Concentration 34.1 32.0 - 35.7 g/dL [facility] Platelet 181 145 - 357 x10(3)/[facility] RDW Standard Deviation 43.8 36.0 - 45.0 [facility] RDW coefficient of variation 12.7 11.4 - 13.8 % [facility] Mean Platelet Volume 9.7 7.6 - 12.9 fL [facility] NRBC% auto 0.0 % [facility] NRBC Absolute 0.000 0.000 - 0.000 x10(3)/[facility] Blood 12/14/2021 3:48 AM EDT 12/14/2021 3:52 AM EDT Narrative Resulting Agency Comment Spec In Lab Desirae Wallace MD HEMATOLOGY ORDERABL ES [facility] [place] [address] * Hemoglobin and Hematocrit, blood (12/14/2021 1:50 AM EDT) Hemoglobin 14.0 13.7 - 16.5 g/dL [facility] Hematocrit 41.7 40.5 - 48.5 % [facility] Blood 12/14/2021 1:50 AM EDT 12/14/2021 2:01 AM EDT Narrative Resulting Agency Comment Spec In Lab Desirae Wallace MD HEMATOLOGY ORDERABL ES [facility] [place] [address] * CT Abdomen & Pelvis wwo Contrast [...] who have questions please contact the health care nurse rn that requested your imaging first. ? Narrative 12/14/2021 1:33 AM EDT EXAMINATION: CT [...] patients who have questions please contactthe health care nurse rn that requested your imaging first. Desirae Wallace MD IMG CT ORDERABLES * Differential, Automated (12/13/2021 11:49 PM EDT) Neutrophil % 68.3 % [facility] Neutrophil Absolute 4.42 1.70 - 6.10 x10(3)/[facility] Lymph % 20.4 % [facility] Lymphocytes Abs 1.3 0.9 - 3.2 x10(3)/[facility] Monocyte % 8.6 % [facility] Monocyte Abs 0.6 0.3 - 0.9 x10(3)/[facility] Eos % 1.5 % [facility] Eosinophils Abs 0.1 0.0 - 0.4 x10(3)/[facility] Basophil % 0.9 % [facility] Baso Absolute 0.1 0.0 - 0.1 x10(3)/[facility] Immature Gran % 0.30 % [facility] Comment: Immature granulocytes(IG's)percentage and absolute count will include metamyelocytes, myelocytes, and promyelocytes. Blood smears from CBCs yielding IG's will be scanned manually for concordance. If this scan disagrees with the automated IG or if promyelocytes are noted, a manual differential will be performed. Immature Gran Absolute 0.02 0.00 - 0.04 x10(3)/[facility] Blood 12/13/2021 11:4 9 PM EDT 12/13/2021 11:49 PM EDT Narrative Resulting Agency Comment Spec In Lab Milind Jones MD HEMATOLOGY ORDERA BLES [facility] [place] [address] * Hemogram (12/13/2021 11:49 PM EDT) White Blood Cell 6.5 4.0 - 9.5 x10(3)/[facility] Red Blood Cell 4.89 4.58 - 5.54 x10(6)/[facility] Hemoglobin 15.0 13.7 - 16.5 g/dL [facility] Hematocrit 45.5 40.5 - 48.5 % [facility] Mean Cell Volume 93.0 82.9 - 93.1 fL [facility] Mean Cell Hemoglobin 30.7 27.5 - 32.1 pg [facility] Mean Cell Hemoglobin Concentration 33.0 32.0 - 35.7 g/dL [facility] Platelet 194 145 - 357 x10(3)/[facility] RDW Standard Deviation 43.4 36.0 - 45.0 fL [facility] RDW coefficient of variation 12.7 11.4 - 13.8 % [facility] Mean Platelet Volume 9.4 7.6 - 12.9 fL [facility] NRBC% auto 0.0 % [facility] NRBC Absolute 0.000 0.000 - 0.000 x10(3)/mcL [facility] Blood 12/13/2021 11:4 9 PM EDT 12/13/2021 11:49 PM EDT Narrative Resulting Agency Comment Spec In Lab Milind Jones MD HEMATOLOGY ORDERA BLES [facility] [place] [address] * (ABNORMAL) Comprehensive metabolic panel (non-fasting) (12/13/2021 11:49 PM EDT) Glucose 105 65 - 199 mg/dL [facility] Comment:Diabetes: >=200 mg/d L plus symptoms Blood Urea Nitrogen 25(H) 10 - 20 mg/dL [facility] Creatinine 1.23 0.80 - 1.50 mg/dL [facility] Sodium 142 135 - 145 mmol/L [facility] Potassium 4.1 3.5 - 5.0 mmol/L [facility] Comment: Please note: ??Patients with WBC >100,000 may have falsely elevated Potassium levels. ??For accurate Potassium quantification in these patients send serum separator tube (gold top) for subsequent determinations. ??Contact the Clinical Chemistry Laboratory if there are any questions. Chloride 105 98 - 107 mmol/L [facility] Carbon Dioxide 23 22 - 31 mmol/L [facility] Anion Gap 14 5 - 15 mmol/L [facility] Calcium 9.1 8.5 - 10.5 mg/dL [facility] Protein, Total 7.2 6.1 - 8.0 g/dL [facility] Albumin 4.4 3.2 - 5.2 g/dL [facility] Aspartate Aminotransferase 29 0 - 39 unit/L [facility] Alanine Aminotransferase 32 0 - 55 unit/L [facility] Alkaline Phosphatase 98 40 - 130 unit/L [facility] Bilirubin, Total 0.6 0.2 - 1.3 mg/dL [facility] Est Glomerular Filtration Rate 60 >=60 mL/min/1. 73 m?? [facility] Comment: This patient's estimated GFR was [...] MD CHEMISTRY ORDERAB LES Performing Organization Address City/State/[facility] Co de Phone Number [facility] [place] [address] * (ABNORMAL) Prothrombin Time (12/13/2021 11:49 PM EDT) Prothrombin Time 14.1(H) 9.4 - 12.5 sec [facility] International Normalization Ratio 1.2 [facility] Comment: An INR <2.0 indicates adequate [...] MD HEMATOLOGY ORDERA BLES Performing Organization Address City/[facility]/ZIP Co de Phone Number [facility] [place] [address] * Type and Screen Validity (12/13/2021 11:44 PM EDT) T&S only valid at [facility] Comment:This Type and Screen result is only valid at the [facility] Blood 12/13/2021 11:4 4 PM EDT 12/13/2021 11:47 PM EDT Narrative Resulting Agency Comment Spec In Lab Milind Jones MD BLOOD BANK LAB OR DERABLES Performing Organization Address [facility]/ZIP Co de Phone Number [facility] [place] [address] * ABORH Recheck Status (12/13/2021 11:44 PM EDT) ABORH Recheck Order Order Placed [facility] ABORH Type Recheck Complete [facility] Blood 12/13/2021 11:4 4 PM EDT 12/13/2021 11:47 PM EDT Narrative Resulting Agency Comment Spec In Lab Milind Jones MD BLOOD BANK LAB OR DERABLES Performing Organization Address City/[facility]/ZIP Co de Phone Number [facility] [place] [address] * Antibody screen (12/13/2021 11:44 PM EDT) Ab Screen Interp Negative [facility] Expires at 2359 on: 12/16/2021 [facility] Blood 12/13/2021 11:4 4 PM EDT 12/13/2021 11:47 PM EDT Narrative Resulting Agency Comment Spec In Lab Milind Jones MD BLOOD BANK LAB OR DERABLES Performing Organization Address City/[facility]/ZIP Co de Phone Number [facility] [place] [address] * ABO/Rh Typing (12/13/2021 11:44 PM EDT) ABORH Type AB Neg YRN [facility] Blood 12/13/2021 11:4 4 PM EDT 12/13/2021 11:47 PM EDT Narrative Resulting Agency Comment Spec In Lab Milind Jones MD BLOOD BANK LAB OR DERABLES [facility] [place] [address] * EKG 12 Lead (12/13/2021 11:42 PM EDT) Ventricular rate 62 BPM MUSE SYSTEM Atrial Rate 62 BPM MUSE SYSTEM P-R Interval 182 ms MUSE SYSTEM QRS Duration 110 ms MUSE SYSTEM Q-T Interval 436 ms MUSE SYSTEM QTC Calculated (Bezet) 442 ms MUSE SYSTEM Calculated P [place] 74 degrees MUSE SYSTEM Calculated R [place] -2 degrees MUSE SYSTEM Calculated T [place] -17 degrees MUSE SYSTEM INTERPRETATION Normal sinus [...] PM EDT Desirae Wallace MD ECG ORDERABLES MUSE SYSTEM documented in this encounter Visit Diagnoses Diagnosis Hematochezia- Primary Blood in stool Hematochezia Blood in stool documented in this encounter Admitting Diagnoses Diagnosis Hematochezia Blood in stool documented in this encounter Administered Medications Inactive Administered Medications - up to 3 most recent administrations Medication Order MAR Action Action Date Dose Rate Site atorvastatin (Lipitor) tablet 20 mg 20 mg, Oral, EVERY EVENING, First dose on 12/14/21 at 1700, Until Discontinued, Routine Given 12/14/2021 6:13 PM EDT 20 mg bisacodyl EC (Dulcolax) tablet 20 mg 20 mg, Oral, ONCE, 1 dose, On 12/14/21 at 1500, At 3 PM the evening prior to the colonoscopy, please have the patient take Bisacodyl 20mg PO Once with 8 ounces of water., Routine Given 12/14/2021 3:30 PM EDT 20 mg dilTIAZem CD (Cardizem CD) capsule 180 mg 180 mg, Oral, DAILY, First dose on 12/15/21 at 1215, Until Discontinued, DO NOT CRUSH OR OPEN, Routine Given 12/15/2021 11:48 AM EDT 180 mg iohexoL (Omnipaque) (350 mg/mL) solution 0-200 mL 0-200 mL, Intravenous, ONCE PRN, 1 dose, Starting on 12/14/21 at 0102, Until 12/14/21 at 0102, Per Protocol, Warning Vesicant/Irritant Medication , Radiology Contrast, Routine Given 12/14/2021 1:02 AM EDT 125 mLs lactated ringers infusion 75 mL/hr, Intravenous, CONTINUOUS, [...] Given 12/15/2021 11:48 AM EDT 50 mg pantoprazole (Protonix) injection 40 mg 40 mg, Intravenous, ONCE, 1 dose, On 12/14/21 at 0233 Given 12/14/2021 2:46 AM EDT 40 mg pantoprazole (Protonix) injection 40 mg 40 mg, Intravenous, 2 TIMES DAILY, First dose on 8/6/22 at 0600, Until Discontinued Given 12/15/2021 10:55 AM EDT 4 0 mg Given 12/14/2021 9:12 PM EDT 40 mg Given 12/14/2021 9:16 AM EDT 40 mg polyethylene glycoL (GoLYTELY) BOWEL PREP powder for solution JUG (236g diluted to 4000 mL) 2,000 mL 2,000 mL, Oral, ONCE, 1 dose, On [...] to be dissolved in 4000 mL., Routine Given 12/14/2021 6:13 PM EDT 2,000 mLs polyethylene glycoL (GoLYTELY) BOWEL PREP powder for solution JUG (236g diluted to 4000 mL) 2,000 mL 2,000 mL, Oral, ONCE, 1 dose, On 12/15/21 at 0000, Patients consume their morning dose (the remaining prep) four hours prior to the procedure (For patients with rocket assembly operator procedures, this may require that the patient [...] to be dissolved in 4000 mL., Routine Given 12/15/2021 12:14 AM EDT 2,00 0 mLs sodium chloride 0.9 % (flush) (BD [...] area)1047 (JUL Unhold - Provider: Admin Adt) bisacodyl EC [...] (Given - Provid er: Nati Lerma RN) pantoprazole (Protonix) injection 40 mg (COMPLETED) 40 mg, Intravenous, ONCE, 1 dose, On 12/14/21 at 0233 0246 (Given - Provider: Elvia Lang RN) pantoprazole (Protonix) injection 40 mg 40 mg, Intravenous, 2 TIMES DAILY, First dose on 12/14/21 at 0600, Until Discontinued 0916 (Given - Provider: Bharti Guardado RN)211 (Given - Provider: Madalyn Ballesteros RN) 0948 (JUL Hold - Provider: Admin Adt - Reason: Transfer to a Procedural area)1047 (MAR Unhold - Provider: Admin Adt)1055 (Given - Provider: Nati Lerma RN) polyethylene glycoL (GoLYTELY) BOWEL PREP powder [...] to be dissolved in 4000 mL., Routine 1812 (Given - Provider: Bharti Guardado RN) polyethylene glycoL (GoLYTELY) BOWEL PREP powder for solution JUG (236g diluted to 4000 mL) 2,000 mL (COMPLETED)(Linked Group 1) 2,000 mL, Oral, ONCE, 1 dose, On 12/15/21 at 0000, Patients consume their morning dose (the remaining prep) four hours prior to the procedure (For patients with rocket assembly operator procedures, this may require that the patient [...] to be dissolved in 4000 mL., Routine 001 (Given - Provid er: Madalyn Ballesteros RN) sodium chloride 0.9 % (flush) (BD PosiFlush Normal Saline 0.9) flush 5 mL 5 mL, Intravenous, 2 TIMES DAILY, First dose on 12/14/21 at 0900, Until Discontinued, Routine 0917 (Given - Provider: Bharti Guardado, ARON)2100 (Not Given - Provider: Madalyn Ballesteros RN - Reason: See comment - Comment: duplicate order) 0948 ([facility] Hold - Provider: Admin Adt - Reason: Transfer to a Procedural area)1047 ([facility] Unhold - Provider: Admin Adt)1054 (Given - Provider: Nati Lerma, ARON) sodium chloride 0.9 % (flush) (BD PosiFlush Normal Saline 0.9) flush 5 mL 5 mL, Intravenous, 2 TIMES DAILY, First dose on 12/14/21 at 0235, Until Discontinued, Routine 0246 (Given - Provider: Elvia Lang RN)0916 (Given - Provider: Bharti Guardado RN)2112 (Given - Provider: Madalyn Ballesteros RN) 0948 ([facility] Hold - Provider: Admin Adt - Reason: Transfer to a Procedural area)1047 ([facility] Unhold - Provider: Admin Adt)1054 (Given - [...] (Rate/Dose Change - Provider: Nati Lerma, ARON)0948 ([facility] Hold - Provider: Admin Adt - Reason: Transfer to a Procedural area)1047 ([facility] Unhold - Provider: Admin Adt)1502 (Due: Stopped) [...] dose, Starting on 12/14/21 at 0102, Until Sat 8 at 0102, Per Protocol, Warning Vesicant/Irritant Medication , Radiology Contrast, Routine 0102 (Given - Provider: Jonathon Shore) lidocaine (Xylocaine) [...] link provided on this medication record., Routine 0948 ([facility] Hold - Provider: Admin [...] link provided on this medication record., Routine 0948 ([facility] Hold - Provider: Admin [...] prior to the procedure (For patients with rocket assembly operator procedures, this may require that the patient [...] Routine documented in this encounter Care Teams Heat Treat Operator Relationship Specialty Start Date End Date Pritesh Davis MD [address] [place] [address] PCP - General Family Medicine 12/13/21 documented as of this encounter
[2024-03-16] MEDS: Apixaban 5 MG TAB PO (23:10)
--- NOTE | 2024-03-16 23:41 | W.PM.HP.N ---
Date of service: 03/16/24 Time of Service: 23:41 Assessment and Plan Assessment and plan (1) Bradycardia: Start date: 03/16/24 Status: Acute Assessment and plan: Patient is chronically on metoprolol and diltiazem as well as Eliquis for paroxysmal atrial fibrillation. He presents with bradycardia and atrial fibrillation converted to sinus rhythm but was symptomatic and possibly slightly dehydrated with CKD. Outside blood pressure measurements were not documented but patient did sound orthostatic getting dizzy with standing and better when he would sit or lie down. This improved with 1 L lactated Ringer's for hydration and no other specific treatment. He did not have any evidence of ischemia with negative troponins. Per [facility] cardiology consultation, the patient will be observed overnight and diltiazem will be held with metoprolol continued. I will update echocardiogram in the morning if possible prior to discharge but if patient cannot have this performed in a timely manner this could be done as an outpatient. He should follow-up with cardiology either locally or at [facility] with this discussion to be had with his PCP. He is a full code. (2) Atrial fibrillation: Status: Chronic Assessment and plan: Paroxysmal atrial fibrillation on Eliquis now with bradycardia and adjusting medications with diltiazem to be held and metoprolol continued. Qualifiers: Atrial fibrillation type: paroxysmal Qualified Code(s): I48.0 - Paroxysmal atrial fibrillation (3) CAD (coronary artery disease): Status: Chronic Assessment and plan: Patient had cardiac catheterization and stenting March 14, 2000 with no recurrent ischemic events. He remains on Lipitor with his beta-diony and is anticoagulated with Eliquis. Qualifiers: Associated angina: without angina Coronary Disease-Associated Artery/Lesion type: [place] artery [place] vs. transplanted heart: [place] heart Qualified Code(s): I25.10 - Atherosclerotic heart disease of [place] coronary artery without angina pectoris (4) Chronic kidney disease: Status: Chronic Assessment and plan: Slightly exacerbated with 1 L lactated Ringer's given and follow-up lab in the morning. Qualifiers: Chronic kidney disease stage: stage 3 (moderate) Chronic kidney disease stage 3 subtype: stage 3b (GFR 30-44) Qualified Code(s): N18.32 - Chronic kidney disease, stage 3b (5) Hyperlipidemia: Status: Chronic Assessment and plan: Continue statin therapy. Patient was advised to increase activity such as walking with his dog which would be congruent with his lifestyle. 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 Qualifiers: Hyperlipidemia type: other hyperlipidemia Qualified Code(s): E78.49 - Other hyperlipidemia History of Present Illness History of Present Illness Chief Complaint: Dizziness with slow heart rate Narrative: This is an 78-year-old male patient with paroxysmal atrial fibrillation on diltiazem and metoprolol as well as Eliquis who presents with dizziness which began just prior to presentation and was worsened with standing and improved with lying down. He does have a history of paroxysmal atrial fibrillation and can feel when he is in atrial fibrillation. During his episode today he did notice that his heart rate was irregular on his Apple Watch. He was prompted to go to the ED by his daughter. In the ED he was in slow atrial fibrillation and converted to sinus. He did slowly improve his heart rate though remained in sinus bradycardia without ischemic changes and negative troponins. [facility] cardiology was consulted and advised observation overnight with discharging home on metoprolol alone and follow-up with them. He does see [facility] cardiology long-term but infrequently mostly seeing his PCP for medical care. He was admitted to [facility] for cardiac catheterization and stenting in March 2000 and has been back to cardiology and frequently. Lives alone with his dog does not exercise routinely. He has not had any swelling of his lower extremities or weight gain but does not always drink fluids well or eat routinely living alone. He does have mild CKD. During his episodes he had no chest pain or shortness of breath. He is a full code. Review of Systems Narrative: 13 point review of systems otherwise unrevealing or stable. PFSH All Active Problems (Updated 03/16/24 @ 23:53 by Gerardo Leach) Bradycardia (Acute) Hyperplastic colon polyp (Acute) Tubular adenoma of colon (Acute) CAD (coronary artery disease) (Chronic) Hyperlipidemia (Chronic) Atrial fibrillation (Chronic 10/28/14) Cough (Acute 10/28/14) Chronic kidney disease (Chronic) Screening for colon cancer (Acute) Medical History Hyperlipemia CAD (coronary artery disease) Hx of sciatica pt. doesnt remember this Hx of adenomatous colonic polyps Paroxysmal atrial fibrillation F/U pcp Dr. Cortes regularly, pt. states he has been on medications with no issues. Hx of urinary tract obstruction Hx of small bowel obstruction Surgical History Hx of transurethral prostatectomy Coronary Stent 1x 03/14/2000 Colonoscopy - IV Sedation (05/16/16) Social History Smoking/Tobacco Use Status: Former Tobacco Use Quit Date: 03/14/00 Smoking risk assessment performed?: Yes Alcohol Intake: current Alcohol Intake frequency: a few times a month Alcohol type: beer and wine Drug use: Never Substance use type: does not use Housing: house Do you feel safe at home: Yes Do you feel safe in your relationship?: Yes Meds Allergies and Home Medications Allergies Allergy/AdvReac Type Severity Reaction Status Date / Time No Known Allergies Allergy Unverified 03/16/24 18:25 Home Medications ?Medication ?Instructions ?Recorded ?Confirmed ?Type atorvastatin 20 mg tablet (Lipitor) 20 mg PO HS 10/28/14 03/16/24 History multivitamin (Daily Vitamin tablet) 1 ea PO DAILY 11/03/14 03/16/24 History apixaban 5 mg tablet (Eliquis) 1 tab PO BID 09/07/15 03/16/24 History diltiazem HCl 180 mg capsule,24 180 mg PO DAILY ##20 12/19/16 03/16/24 Rx hr,extended release metoprolol succinate 50 mg 50 mg PO DAILY 04/17/20 03/16/24 History tablet,extended release 24 hr Exam Narrative Exam Narrative: General: Patient appears well and is in no acute distress. He is alert and oriented x 3. HEENT: Normocephalic, eyes with pupils equal and reactive to light symmetrically, extraocular movement intact and sclera anicteric. Oropharynx with moist [place] and good dentition. Neck: Supple without JVD. Back: Stooped posture without CVA tenderness. Lungs: Aeration and clear to auscultation percussion. No focalizing rales or rhonchi and no expiratory wheeze. Heart: Bradycardic rate with normal rhythm. No appreciable murmur or gallop. Abdomen: Slightly obese contour, soft and nontender to palpation without palpable hepatosplenomegaly. Bowel sounds positive all quadrants. Genitalia/rectal: Exam deferred. Extremity: Without clubbing, cyanosis or pitting edema. Good capillary refill. Skin: Normal color, warm and dry. Neuro: Cranial nerves II through XII gross intact, no focal motor deficits or tremor. Psych: Normal affect and mood with no abnormal thought processes. Remote and recent memory intact. Results Labs 03/16/24 18:30 03/16/24 18:30 Labs: Laboratory Results - last 24 hr 03/16/24 03/16/24 03/16/24 18:30 19:33 21:29 WBC 7.79 RBC 5.10 Hgb 16.0 Hct 48.2 MCV 95 MCH 31.4 MCHC 33.2 RDW 12.7 Plt Count 236 MPV 9.6 Immature Gran % 0.1 Neutrophils % 54.0 Lymphocytes % 34.3 Monocytes % 8.3 Eosinophils % 2.1 Basophils % 1.2 Nucleated RBC % 0.0 Absolute Neutrophils 4.21 Absolute Lymphocytes 2.67 Absolute Monocytes 0.65 Absolute Eosinophils 0.16 Absolute Basophils 0.09 Sodium 144 Potassium 4.1 Chloride 106 Carbon Dioxide 27.5 Anion Gap 10.5 BUN 26 H Creatinine 1.5 H Est GFR (CKD-EPI 2020) 46.77 Glucose 161 H Calcium 9.3 Magnesium 2.1 Total Bilirubin 0.47 AST 16 ALT 34 Alkaline Phosphatase 120 H Troponin I 8 8 Cancelled Total Protein 7.8 Albumin 3.9 Last Vital Signs Temp 36.6 C 03/16/24 18:17 Pulse 58 L 03/16/24 22:47 Resp 15 03/16/24 23:10 BP 140/73 03/16/24 22:47 Pulse Ox 93 03/16/24 23:10 PAWSS Have you Been Recently Intoxicated or Drunk Within the Last 30 days?: No Have you Ever Experienced Previous Episodes of Alcohol Withdrawal?: No Have you ever Experienced Withdrawal Seizures?: No Have you ever Experienced Delirium Tremens(DT)s?: No Have you ever undergone Alcohol Rehabilitation Treatment (i.e, inpt ot outpatient treatment programs)?: No Have you ever Experienced Blackouts?: No Have you ever Combined Alcohol with other Downers within the last 90 days?: No Have you ever Combined Alcohol with any other Substance of Abuse during the last 90 days?: No Positive Blood Alcohol level on Presentation? [PCS.BAL]: No Evidence of Increased Autonomic Activity (i.e. HR>120, tremor, sweating, agitation, nausea)?: No Result: 0 Time Spent Time spent with Patient: >75 minutes Time was spent: preparing to see the patient(eg.review tests), obtaining and/or reviewing separately otained hiistory, ordering medications,tests, procedures, referring, communicating with other health medical care manager, indepentently interpreting results, counseling the patient and care coordination
[2024-03-17] VITALS (8 sets, daily range): BP systolic 132–155; BP diastolic 53–82; PULSE 61–67; RESP 14–20; TEMP 37.1–37.7; O2SAT 92–94
--- NOTE | 2024-03-17 00:31 | W.PC.ACHO ---
Registration Status: Primary Language: Preferred Language: ED Information & Data Chief Complaint [id number] 03/16/24 18:35 Triage Note patient felt lightheaded/ 03/16/24 18:17 dizzy about 10 minutes ago. Used pulse ox and hr was 38. hx of [place] in 03/14/2000. Has afib now. no sob, no nausea. no pain. Medical / Surgical History (Last Reviewed 03/16/24 @ 23:50 by Gerardo Leach) Hyperlipemia CAD (coronary artery disease) Hx of sciatica Hx of adenomatous colonic polyps Paroxysmal atrial fibrillation Hx of urinary tract obstruction Hx of small bowel obstruction (Last Reviewed 03/16/24 @ 23:50 by Gerardo Leach) Hx of transurethral prostatectomy Coronary Stent Colonoscopy - IV Sedation (05/16/16) Most Recent Vital Signs Temperature 36.6 C 03/16/24 18:17 Temperature Source Oral 03/16/24 18:17 Pulse 62 03/17/24 00:17 Pulse 61 03/17/24 00:17 Respiratory Rate 20 03/17/24 00:17 Respiratory Effort Normal, Non-Labored 03/16/24 20:02 Respiratory Depth Normal 03/16/24 20:02 Respiratory Pattern Normal 03/16/24 20:02 Blood Pressure 144/53 H 03/17/24 00:17 Blood Pressure Mean 87 03/17/24 00:17 Blood Pressure Position Sitting 03/16/24 18:17 Pulse Oximetry 92 03/17/24 00:17 Oxygen Delivery Method Room Air 03/16/24 18:17 Oxygen Flow Rate 0 03/16/24 18:17 Pain Level 0 03/16/24 18:17 Allergies No Known Allergies Allergy (Unverified 03/16/24 18:25) Active Medications Generic Name Dose Route Start Last Admin Trade Name Freq PRN Reason Stop Dose Admin Apixaban 5 mg 03/16/24 23:15 03/16/24 23:10 Apixaban 5 Mg Tab PO 5 mg BID AYAN Administration IV IV Catheter Type [Left Saline Lock Antecubital] IV Catheter Gauge [Left 18 Antecubital] Diagnostics 03/16/24 03/16/24 03/16/24 Range/Units 21:29 19:33 18:30 WBC 7.79 (4.4-10.8) 10^3/uL RBC 5.10 (4.36-5.78) 10^6/uL Hgb 16.0 (13.5-17.5) g/dL Hct 48.2 (40.0-50.0) % MCV 95 (80-95) fL MCH 31.4 (27.0-33.0) pg MCHC 33.2 (32.0-36.0) % RDW 12.7 (11.8-14.1) % Plt Count 236 (130-400) 10^3/uL MPV 9.6 (8.0-11.0) fL Immature Gran % 0.1 % Neutrophils % 54.0 % Lymphocytes % 34.3 % Monocytes % 8.3 % Eosinophils % 2.1 % Basophils % 1.2 % Nucleated RBC % 0.0 (0.0-0.3) % Absolute Neutrophils 4.21 (1.2-6.7) 10^3/uL Absolute Lymphocytes 2.67 (1.2-3.4) 10^3/uL Absolute Monocytes 0.65 (0.1-0.8) 10^3/uL Absolute Eosinophils 0.16 (0.0-0.7) 10^3/uL Absolute Basophils 0.09 (0.0-0.2) 10^3/uL Sodium 144 (136-145) mmol/L Potassium 4.1 (3.5-5.1) mmol/L Chloride 106 (98-107) mmol/L Carbon Dioxide 27.5 (21.0-32.0) mmol/L Anion Gap 10.5 (3-11) mmol/L BUN 26 H (7-18) mg/dL Creatinine 1.5 H (0.70-1.30) mg/dL Est GFR (CKD-EPI 2020) 46.77 (mL/min/1.73m2) Glucose 161 H (74-106) mg/dL Calcium 9.3 (8.5-10.1) mg/dL Magnesium 2.1 (1.8-2.4) mg/dL Total Bilirubin 0.47 (0.2-1.0) mg/dL AST 16 (15-37) U/L ALT 34 (16-63) U/L Alkaline Phosphatase 120 H (46-116) U/L Troponin I Cancelled 8 8 (<or=76) ng/L Total Protein 7.8 (6.4-8.2) g/dL Albumin 3.9 (3.4-5.0) g/dL Intake and Output - 24 Hour Total 03/16/24 18:16 thru 03/16/24 23:27 Intake Total 1050 Output Total 1175 Balance -125 Weight 99.79 kg Intake: IV 1050 Output: Urine 1175 Other: # Voids 1 Falls Risk Assessment History of Falls No History 03/16/24 18:35 Contributing Factors No Factors 03/16/24 18:35 Ambulatory Aids Independent 03/16/24 18:35 Tubes/Lines W/no contributing factors 03/16/24 18:35 Gait Evaluation No gait disturbance 03/16/24 18:35 Cognition No cognitive impairment 03/16/24 18:35 Fall Total Score 10 03/16/24 18:35 Level of Risk Standard/Low Risk 03/16/24 18:35 Problems (Last Reviewed 03/16/24 @ 23:50 by Gerardo Leach) Bradycardia (Acute) CAD (coronary artery disease) (Chronic) Hyperlipidemia (Chronic) Atrial fibrillation (Chronic 10/28/14) Chronic kidney disease (Chronic) v v v v v v v v v Sending and/or Receiving Nurses: Please use comment section below to note any information pertinent to the patient hand-off not included above. Information / Comments: Received report from ER full assessment given . Report received from:Eduin
[2024-03-17 06:16] LABS: HGB 15.5 g/dL (13.5-17.5); MCH 31.2 pg (27.0-33.0); MCHC 33.7 % (32.0-36.0); MCV 93 fL (80-95); MPV 9.9 fL (8.0-11.0); Platelet Count 216 10^3/uL (130-400); RBC 4.97 10^6/uL (4.36-5.78); RDW-SD 43.8 fL
[2024-03-17 06:32] LABS: ALT 27 U/L (16-63); AST 15 U/L (15-37); Albumin 3.7 g/dL (3.4-5.0); Alkaline Phosphatase 113 U/L (46-116); Anion Gap 9.2 mmol/L (3-11); BUN 19 mg/dL (7-18); Bilirubin, Total 0.75 mg/dL (0.2-1.0); CO2 24.8 mmol/L (21.0-32.0); CREATININE 1.2 mg/dL (0.70-1.30); Calcium 9.3 mg/dL (8.5-10.1); Chloride 111 mmol/L (98-107); Estimated GFR 61.13 (mL/min/1.73m2); Glucose 109 mg/dL (74-106); Magnesium 2.5 mg/dL (1.8-2.4); Potassium 4.3 mmol/L (3.5-5.1); Sodium 145 mmol/L (136-145); Total Protein 7.4 g/dL (6.4-8.2)
--- NOTE | 2024-03-17 08:00 | DI.US_ITS ---
APPROVED REPORT EXAM: Comprehensive 2D, Doppler, and color-flow Echocardiogram Patient Location: In-Patient Room/Bed: [address] Automatic Stoker: Gissel Grant RDCS (AE) Indications: CAD with dizziness and bradycardia Other Information Study Quality: Adequate Conclusion Normal left ventricular wall thickness and chamber size. Ejection fraction is 50 to 55%. There are no segmental wall motion abnormalities Normal right ventricular size and function Both atria are normal in size There are no structural valvular abnormalities Mild mitral regurgitation Ascending aorta measures 3.84 cm Wall motion Left Ventricle The left ventricle is normal size. Left ventricular systolic function is borderline There is normal l eft ventricular wall thickness. No segmental wall motion abnormalities There is no ventricular septal defect visualized. LVEF is 50-55%. Right Ventricle The right ventricle is normal size. The right ventricular systolic function is normal. Atria The left atrium size is normal. The right atrium size is normal. The interatrial septum is intact wit h no evidence for an atrial septal defect. Aortic Valve The aortic valve is normal in structure. Aortic valve is trileaflet. There is no aortic valvular sten osis. No aortic regurgitation is present. Mitral Valve The mitral valve is normal in structure. No evidence of mitral valve stenosis. Mild mitral regurgita tion. Tricuspid Valve The tricuspid valve is normal in structure. There is no tricuspid valve stenosis. Trace tricuspid reg urgitation. Unable to assess PA pressure. Pulmonic Valve The pulmonary valve is normal in structure. There is no pulmonic valvular stenosis. Mild pulmonic reg urgitation. Great Vessels The aortic root is normal in size. The ascending aorta is mildly dilated. Aortic arch is normal in ca liber. IVC is normal in size and collapses >50% with inspiration. Pericardium There is no pericardial effusion. 2D Dimensions IVSD d PLAX 0.90 cm M: 0.6-1.2 Ao Root d 3.61 cm M: 3.1 - 3.7 LVPW d PLAX 0.93 cm M: 0.6 - 1.2 Ao Asc Diam d 3.84 cm M: 2.6 - 3.4 LVID d PLAX 5.60 cm M: 4.2 - 5.8 LVDs 4.17 cm M: 2.5 - 4.0 LV EF Teichholz 49.6 % FS 25.48 % LV EDV (Teich) 153.8 mL LV ESV (Teich) 77.5 mL M-Mode TAPSE 2.83 cm (M/F) >1.7 Auto EF LV EDV A4C 187.6 mL LV EDV A2C 115.7 mL LV EDV BP 150.1 mL LV ESV A4C 92.8 mL LV ESV A2C 55.6 mL LV ESV BP 72.9 mL LVEF(%) A4C 50.5 % LVEF(%) A2C 51.9 % LVEF(%) BP 51.4 % LV SV A4C 94.8 ml LV SV A2C 60.1 ml LV SV BP 77.1 ml LV CO A4C 6.9 L/min LV CO A2C 4.2 L/min LV CO BP 5.5 L/min HR A4C 72.29 BPM HR A2C 70.45 BPM LV EDV Index (BP) LA Volume LA Length A4C 6.5 cm LA Length A2C 6.5 cm LA Area A4C s 23.02 cm2 LA Area A2C s 22.33 cm2 LA Vol A4C A-L 69.42 mL LA Vol A2C A-L 65.02 mL LA Vol Biplane A-L 67.3 mL LA Vol/BSA A4C A-L LA Vol/BSA A2C A-L LA Vol/BSA BP A-L 28.9 mL/m2 LA Vol A4C MOD 64.9 mL LA Vol A2C MOD 61.0 mL LA Vol BP MOD 62.9 mL RA Volume RA Area A4C 19.1 cm2 RA ESV A4C (A-L) 53.7mL RA Vol/BSA A4C A-L RA Length A4C 5.7 cm RA ESV A4C (MOD) 50.6mL LV Diastology MV E' medial 0.067 (>0.07 m/s) MV E Vmax 0.75 (0.4-1.3 m/s) MV E/E' MED 11.26 (<14) MV A Vmax 1.00 (0.4-1.3 m/s) MV E' lateral 0.107 (>0.1 m/s) E/A Ratio 0.8 MV E/E' LAT 6.97 (<14) MV E' Average 0.087 m/s MV E/E'(average) 8.61 Aortic Valve AoV Vmax 1.39 m/s LVOT Vmax 1.00 m/s AoV Peak Grad 7.7 mmHg LVOT Peak Grad 4.0 mmHg AoV Area (Vmax) 2.69 cm2 LVOT VTI 0.233 m AoV VTI 0.348 m LVOT Mean Grad 2.3 mmHg AoV Mean Montez. 0.99 m/s LVOT SV 86.86 mL AoV Mean Grad 4.4 mmHg LVOT Diam s 2.15 cm AoV Area (VTI) 2.50 cm2 AV Regurg Peak Gr. 7.74 mmHg Velocity Ratio 0.72 Mitral Valve MV DT 202 (160-240 msec) MV Vmax TIPS 1.06 m/s MV Mean Grad 2.0 (<2mmHg) MV VTI 0.301 m Pulmonary Valve PV Vmax 0.97 (0.5-1.5 m/s) RVOT Vmax 0.80 m/s PV Peak Grad 3.7 mmHg RVOT Peak Gr. 2.6 mmHg PV Mean Montez 0.70 m/s RVOT VTI 0.206 m PV Mean Grad 2.2 mmHg RVOT Mean Gr. 1.5 mmHg Tricuspid Valve RA Pressure 3.00 mmHg TV S' 0.18 m/s
[2024-03-17] MEDS: Multivitamin TAB 1 TAB PO (08:32)
[2024-03-17] MEDS: Normal Saline Flush 10 ML SYR IVP (08:32)
[2024-03-17] MEDS: Apixaban 5 MG TAB PO (08:32)
[2024-03-17] MEDS: Metoprolol CR 50 MG TABCR PO (08:32)
--- NOTE | 2024-03-17 08:35 | PDOC.CMIN ---
Date of service: 03/17/24 Time of Service: 08:35 Care Management Initial Assmt Initial Assessment Reason for Hospitalization: bradycardia Functional Status/Living Situation Patient Presentation: Jos is an 78 year old gentleman admitted on 03/16/24 with bradycardia. He has been taking 2 different antihypertensive medications which can both lower HR and became lightheaded with a pulse in the low 30s. Since admission, his diltiazem has been held and his heart rate returned to normal. Jos lives alone in a single family home in [place]. He has one daughter, Yanci, who is a nurse in a large hospital in [place].She is and has 3 children. Jos reports that the family is close. He drives down to see them (1000 mile trip) about every 2 months. 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 Jos is independent at baseline and does not receive any community services. 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 Town of Residence: [place] Resides with: Alone Significant Other/Family: Out of area (daughter Yanci in [place]) Employment Status: Retired Instrumental Activities of Daily Living (ADLs): Independent Medications Medication Management: No Issues/Barriers identified Physical Functioning/Mobility Assistive Device: none Advance Directives Advance Directives: Do you have an Advance Directive: N 04/25/13 13:26 AD On File at [facility]: N 04/25/13 13:26 Date Asked 03/16/24 03/16/24 18:18 AD Date Reviewed COLST On File at [facility] No 07/11/23 21:09 COLST Date Scanned Code Status Resuscitation Status Full Code Insurance Coverage/Financial Issues Insurance: Medicare [facility] Medicare Supplement Care Team Visit Care Team Role Provider Type Pritesh Davis MD Primary Care Provider NON-[facility] STAFF PHYSICIAN Jaqueline Fang MD Emergency Provider [facility] STAFF PHYSICIAN Gerardo Leach Admit Provider NON-[facility] STAFF PHYSICIAN Attending Provider Discharge Potential Discharge Needs: PCP F/U Appt and Other (Cardiology) Anticipated Barriers to Discharge: None Identified Patient/Family Education Needs: Review discharge instructions, discuss Ask Me Three Transportation: Private vehicle Plan: Anticipate Jos will be discharged home with no new services when medically stable. He will follow up with his PCP and plan of care and transport with family. CM will follow and continue to assess for discharge needs. PFSH All Active Problems (Updated 03/16/24 @ 23:53 by Gerardo Leach) Bradycardia (Acute) Hyperplastic colon polyp (Acute) Tubular adenoma of colon (Acute) CAD (coronary artery disease) (Chronic) Hyperlipidemia (Chronic) Atrial fibrillation (Chronic 10/28/14) Cough (Acute 10/28/14) Chronic kidney disease (Chronic) Screening for colon cancer (Acute) Medical History Hyperlipemia CAD (coronary artery disease) Hx of sciatica pt. doesnt remember this Hx of adenomatous colonic polyps Paroxysmal atrial fibrillation F/U pcp Dr. Cortes regularly, pt. states he has been on medications with no issues. Hx of urinary tract obstruction Hx of small bowel obstruction Surgical History Hx of transurethral prostatectomy Coronary Stent 1x 03/14/2000 Colonoscopy - IV Sedation (05/16/16) Social History Smoking/Tobacco Use Status: Former Tobacco Use Quit Date: 03/14/00 Smoking risk assessment performed?: Yes Alcohol Intake: current Alcohol Intake frequency: a few times a month Alcohol type: beer and wine Drug use: Never Substance use type: does not use Housing: house Do you feel safe at home: Yes Do you feel safe in your relationship?: Yes SDOH(Care Management) Screening Will the Patient Participate in the Screening?: Declined to provide
--- NOTE | 2024-03-17 12:04 | W.PM.DS.N ---
Date of service: 03/17/24 Time of Service: 12:35 DS: Diagnosis Discharge Diagnosis (1) Bradycardia: Status: Acute (2) Atrial fibrillation: Status: Chronic (3) CAD (coronary artery disease): Status: Chronic (4) Chronic kidney disease: Status: Chronic (5) Hyperlipidemia: Status: Chronic Discharge Plan Disposition Patient Disposition: Home Condition: Good Discharge Details Reason For Visit: Bradycardia with keron syncope, PAF Admit Date/Time: 03/16/24 23:59 Admit Provider: Gerardo Leach Attending Provider: Gerardo Leach Primary Care Provider: Pritesh Davis Hospital Course Hospital Course: Patient initially presented with near syncope that was determined to be secondary to iatrogenic bradycardia. Patient was on metoprolol and diltiazem and after discussion with [facility] cardiology recommendation was for patient to have his diltiazem held. His heart rate improved after withholding diltiazem. Patient was given monitored after getting his morning dose of metoprolol and his heart rate did not dip below the 60s. At which time was determined the patient was stable for discharge home. Additionally, he did have an echocardiogram but results were not available prior to discharge. Home Meds and New Rx's Prescriptions: Continued multivitamin [Daily Vitamin] 1 EACH tablet 1 ea PO DAILY atorvastatin [Lipitor] 20 MG tablet 20 mg PO HS Eliquis 5 MG tablet 1 tab PO BID metoprolol succinate 50 MG tablet extended release 24 hr 50 mg PO DAILY Discontinued diltiazem HCl 180 MG capsule,extended release 24 hr 180 mg PO DAILY Qty: 20 0RF Discharge Instructions Stand Alone Forms: Nursing Discharge Form Referrals: Pritesh Davis MD [Primary Care Provider] - 03/24/24 10:15 am Activity:: Activity as Tolerated Equipment/Supplies:: No Equipment Needed Diet:: As Tolerated Discharge Orders Discharge Orders: Discharge Order (Routine); Ordered 03/17/24 Ordered By: Julian Palma DS: Summary Time Spent with Patient providing and/or coordinating discharge services: Greater than 30 minutes Status at Discharge Functional status at discharge: independent ambulation Overall status at discharge: patient is back to baseline Mental Status: mental status grossly normal Speech and Movement: speech and movement normal Mood: congruent mood Affect: normal affect Quality:SDOH Health Related Social Needs: No Data to Display Exam Narrative Exam Narrative: Well-appearing gentleman sitting up in the chair no acute distress, ANO x 4, heart irregularly irregular with rate in the upper 60s to low 70s, lungs clear to auscultation bilaterally, abdomen soft, nontender, nondistended Psych Mental Status: mental status grossly normal Speech and Movement: speech and movement normal Mood: congruent mood Affect: normal affect DS: Data Vitals/I&O Vitals and I&O: Vital Signs Temperature 99.1 F 03/17/24 11:39 Temperature Source Tympanic 03/17/24 11:39 Pulse 66 03/17/24 11:39 Pulse Rhythm Regular 03/17/24 00:55 Pulse 61 03/17/24 00:17 Respiratory Rate 16 03/17/24 11:39 Respiratory Effort Normal, Non-Labored 03/17/24 00:55 Respiratory Depth Normal 03/17/24 00:55 Respiratory Pattern Normal 03/17/24 00:55 Blood Pressure 145/73 H 03/17/24 11:39 Blood Pressure Mean 87 03/17/24 00:17 Blood Pressure Position Sitting 03/16/24 18:17 Pulse Oximetry 94 03/17/24 11:39 Oxygen Delivery Method Room Air 03/17/24 11:39 Oxygen Flow Rate 0 03/17/24 11:39 Pain Level 0 03/17/24 07:15 Comment RN notified 03/17/24 11:39 Intake & Output 03/16/24 03/17/24 03/17/24 17:59 05:59 17:59 Intake Total 1050 / 1050 Output Total 1175 / 1175 Balance -125 / -125 Weight 231 lb 14.821 oz 229 lb 4.492 oz Intake: IV 1050 / 1050 Output: Urine 1175 / 1175 Other: Urine Color Yellow Urine Appearance Clear Clear Urine Odor None Comment unable to see the urine appearance. Patient voided independently in the bathroom. Patient states that urine is clear and yellow, also states that the bladder pattern is normal # Voids 1 Data Completed and Pending Labs on day of discharge: Labs from last 24 hours 03/17/24 03/16/24 03/16/24 06:02 21:29 19:33 WBC 8.20 RBC 4.97 Hgb 15.5 Hct 46.0 MCV 93 MCH 31.2 MCHC 33.7 RDW 13.0 Plt Count 216 MPV 9.9 Immature Gran % Neutrophils % Lymphocytes % Monocytes % Eosinophils % Basophils % Nucleated RBC % Absolute Neutrophils Absolute Lymphocytes Absolute Monocytes Absolute Eosinophils Absolute Basophils Sodium 145 Potassium 4.3 Chloride 111 H Carbon Dioxide 24.8 Anion Gap 9.2 BUN 19 H Creatinine 1.2 Est GFR (CKD-EPI 2020) 61.13 Glucose 109 H Calcium 9.3 Magnesium 2.5 H Total Bilirubin 0.75 AST 15 ALT 27 Alkaline Phosphatase 113 Troponin I Cancelled 8 Total Protein 7.4 Albumin 3.7 03/16/24 18:30 WBC 7.79 RBC 5.10 Hgb 16.0 Hct 48.2 MCV 95 MCH 31.4 MCHC 33.2 RDW 12.7 Plt Count 236 MPV 9.6 Immature Gran % 0.1 Neutrophils % 54.0 Lymphocytes % 34.3 Monocytes % 8.3 Eosinophils % 2.1 Basophils % 1.2 Nucleated RBC % 0.0 Absolute Neutrophils 4.21 Absolute Lymphocytes 2.67 Absolute Monocytes 0.65 Absolute Eosinophils 0.16 Absolute Basophils 0.09 Sodium 144 Potassium 4.1 Chloride 106 Carbon Dioxide 27.5 Anion Gap 10.5 BUN 26 H Creatinine 1.5 H Est GFR (CKD-EPI 2020) 46.77 Glucose 161 H Calcium 9.3 Magnesium 2.1 Total Bilirubin 0.47 AST 16 ALT 34 Alkaline Phosphatase 120 H Troponin I 8 Total Protein 7.8 Albumin 3.9 PFSH All Active Problems (Updated 03/16/24 @ 23:53 by Gerardo Leach) Bradycardia (Acute) Hyperplastic colon polyp (Acute) Tubular adenoma of colon (Acute) CAD (coronary artery disease) (Chronic) Hyperlipidemia (Chronic) Atrial fibrillation (Chronic 10/28/14) Cough (Acute 10/28/14) Chronic kidney disease (Chronic) Screening for colon cancer (Acute) Medical History Hyperlipemia CAD (coronary artery disease) Hx of sciatica pt. doesnt remember this Hx of adenomatous colonic polyps Paroxysmal atrial fibrillation F/U pcp Dr. Cortes regularly, pt. states he has been on medications with no issues. Hx of urinary tract obstruction Hx of small bowel obstruction Surgical History Hx of transurethral prostatectomy Coronary Stent 1x 03/14/2000 Colonoscopy - IV Sedation (05/16/16) Social History Smoking/Tobacco Use Status: Former Tobacco Use Quit Date: 03/14/00 Smoking risk assessment performed?: Yes Alcohol Intake: current Alcohol Intake frequency: a few times a month Alcohol type: beer and wine Drug use: Never Substance use type: does not use Housing: house Do you feel safe at home: Yes Do you feel safe in your relationship?: Yes Time Spent with Patient Time Spent with Patient: <45 minutes Time was spent: preparing to see the patient(eg.review tests), obtaining and/or reviewing separately otained hiistory, ordering medications,tests, procedures, referring, communicating with other health respiratory care program director, indepentently interpreting results, counseling the patient and care coordination
== END 2024-03-17 13:02 | disposition home or self-care (01) ==
LOC: ER 03-17 00:31 → MS 03-17 00:42
PROVIDERS: Admitting Provider Family Medicine; Emergency Provider Emergency Medicine; PCP Family Medicine; Visit Provider Family Medicine
DX: R00.1 Bradycardia, unspecified (principal); T46.1X5A Adverse effect of calcium-channel blockers, initial encounter; R55 Syncope and collapse; I48.0 Paroxysmal atrial fibrillation; E78.5 Hyperlipidemia, unspecified; I25.10 Atherosclerotic heart disease of native coronary artery without angina pectoris; N18.32 Chronic kidney disease, stage 3b; Z79.01 Long term (current) use of anticoagulants
CPT/HCPCS: 00123; 36415; 80053; 85027; 93005; 93306; 96365; 99285; 83735; 84484; 85025; 93010; 99223; 99239; G0378; J3475

== ENCOUNTER 2025-02-02 17:43 | Outpatient (REF) | payer MEDICARE, SELFPAY ==
[2025-02-02 21:04] LABS: Abs Immature Grans 0.01 10^3/uL (0.0-0.06); HCT 44.3 % (40.0-50.0); HGB 14.3 g/dL (13.5-17.5); Immature Grans % 0.2 %; MCH 30.4 pg (27.0-33.0); MCHC 32.3 % (32.0-36.0); MCV 94 fL (80-95); MPV 10.6 fL (8.0-11.0); Platelet Count 181 10^3/uL (130-400); RBC 4.71 10^6/uL (4.36-5.78); RDW 12.8 % (11.8-14.1); RDW-SD 44.2 fL; WBC 5.04 10^3/uL (4.4-10.8)
[2025-02-02 21:33] LABS: ALT 27 U/L (16-63); AST 16 U/L (15-37); Albumin 3.8 g/dL (3.4-5.0); Alkaline Phosphatase 110 U/L (46-116); Anion Gap 9.1 mmol/L (3-11); BUN 28 mg/dL (7-18); Bilirubin, Total 0.4 mg/dL (0.2-1.0); CO2 27.9 mmol/L (21.0-32.0); Calcium 8.8 mg/dL (8.5-10.1); Chloride 106 mmol/L (98-107); Estimated GFR 75.61 (mL/min/1.73m2); Glucose 106 mg/dL (74-106); Potassium 4.1 mmol/L (3.5-5.1); Sodium 143 mmol/L (136-145); Total Protein 6.8 g/dL (6.4-8.2)
== END 2025-02-02 17:44 | disposition home or self-care (01) ==
LOC: NCHCN 17:43
PROVIDERS: PCP Family Medicine; Visit Provider Family Medicine
DX: I48.0 Paroxysmal atrial fibrillation (principal); N18.30 Chronic kidney disease, stage 3 unspecified
CPT/HCPCS: 80053; 85025